=== PATIENT | male | born 1940 | race Caucasian/White ===

== ENCOUNTER 2019-07-03 00:45 | Emergency (ER) | payer MEDICARE, OTHER ==
[2019-07-03] MEDS ORDERED: Morphine 2 MG/ML Syringe IVPUSH ONE (00:52)
--- NOTE | 2019-07-03 00:54 | EDM.PDOC ---
ED HPI GENERAL MEDICAL PROBLEM - General Stated Complaint: FELL AND SPRAINED WRIST Time Seen by Provider: 07/03/19 00:53 Source of Information: Reports: Patient - History of Present Illness INITIAL COMMENTS - FREE TEXT/NARRATIVE: HISTORY AND PHYSICAL: History of present illness: [Getting into bed this evening had a fall he presents with right wrist deformity neurovascularly intact contusion on forehead noted No fever nausea vomiting chills sweats no chest pain shortness breath headache dizziness palpitation no bowel or urine symptoms ] Review of systems: As per history of present illness and below otherwise all systems reviewed and negative. Past medical history: As per history of present illness and as reviewed below otherwise noncontributory. Surgical history: As per history of present illness and as reviewed below otherwise noncontributory. Social history: No reported history of drug or alcohol abuse. Family history: As per history of present illness and as reviewed below otherwise noncontributory. Physical exam: HEENT: Atraumatic, normocephalic, pupils reactive, negative for conjunctival pallor or scleral icterus, mucous membranes moist, throat clear, neck supple, nontender, trachea midline. Lungs: Clear to auscultation, breath sounds equal bilaterally, chest nontender. Heart: S1S2, regular, negative for clicks, rubs, or JVD. Abdomen: Soft, nondistended, nontender. Negative for masses or hepatosplenomegaly. Negative for costovertebral tenderness. Pelvis: Stable nontender. Genitourinary: Deferred. Rectal: Deferred. Extremities: Atraumatic, negative for cords or calf pain. Neurovascular unremarkable. Swelling and deformity noted Neuro: Awake, alert, oriented. Cranial nerves II through XII unremarkable. Cerebellum unremarkable. Motor and sensory unremarkable throughout. Exam nonfocal. Diagnostics: [CBC CMP UA EKG Chest 1 view Pelvis 1 view Right wrist [address] no contrast Cervical spine no contrast ] Therapeutics: Normal saline Morphine 2 mg IV Slight reduction with traction performed, remains neurovascularly intact, no complication no complaint Splint Sling [place] [facility] referral for orthopedist ] Impression: closed intra-articular comminuted fracture distal radius ulnar styloid fracture right wrist injury Fall in home Definitive disposition and diagnosis as appropriate pending reevaluation and review of above. right hand Pain Score (Numeric/FACES): 6 - Related Data Allergies Allergy/AdvReac Type Severity Reaction Status Date / Time No Known Allergies Allergy Verified 07/03/19 00:59 Home Meds: Home Meds Aspirin 1 tab PO DAILY 07/03/19 [History] ED ROS GENERAL - Review of Systems Review Of Systems: See Below ED EXAM, GENERAL - Physical Exam Exam: See Below Course - Vital Signs Last Recorded V/S: Last Vital Signs Temp 96.2 F 07/03/19 02:11 Pulse 47 L 07/03/19 02:11 Resp 12 07/03/19 02:11 BP 118/57 L 07/03/19 02:11 Pulse Ox 93 L 07/03/19 02:11 - Orders/Labs/Meds Orders: Active Orders 24 hr Category Date Time Status EKG Documentation Completion [RC] STAT Care 07/03/19 00:52 Active Cervical Spine wo Cont [CT] Stat Exams 07/03/19 00:57 Taken Wrist 2V Rt [CR] Stat Exams 07/03/19 02:03 Taken UA RFX NESTOR AND CULT IF INDIC [URIN] Stat Lab 07/03/19 00:52 Ordered Sodium Chloride 0.9% [Normal Saline] 1,000 ml Med 07/03/19 01:00 Active IV STAT Medication Orders Sodium Chloride (Normal Saline) 1,000 mls @ 125 mls/hr IV STAT ISABELLA Last Admin: 07/03/19 01:28 Dose: 125 mls/hr Labs: Laboratory Tests 07/03/19 07/03/19 Range/Units 00:56 00:56 WBC 9.32 (4.0-11.0) K/uL RBC 4.31 L (4.50-5.90) M/uL Hgb 14.4 (13.0-17.0) g/dL Hct 41.7 (38.0-50.0) % MCV 96.8 (80.0-98.0) fL MCH 33.4 H (27.0-32.0) pg MCHC 34.5 (31.0-37.0) g/dL RDW Std Deviation 44.0 (28.0-62.0) fl RDW Coeff of Nahed 13 (11.0-15.0) % Plt Count 218 (150-400) K/uL MPV 10.40 (7.40-12.00) fL Neut % (Auto) 60.2 (48.0-80.0) % Lymph % (Auto) 29.5 (16.0-40.0) % Kleberg % (Auto) 9.2 (0.0-15.0) % Eos % (Auto) 0.8 (0.0-7.0) % Baso % (Auto) 0.3 (0.0-1.5) % Neut # (Auto) 5.6 (1.4-5.7) K/uL Lymph # (Auto) 2.8 H (0.6-2.4) K/uL Kleberg # (Auto) 0.9 H (0.0-0.8) K/uL Eos # (Auto) 0.1 (0.0-0.7) K/uL Baso # (Auto) 0.0 (0.0-0.1) K/uL Sodium 145 (136-148) mmol/L Potassium 3.9 (3.5-5.1) mmol/L Chloride 108 H (98-107) mmol/L Carbon Dioxide 26.3 (21.0-32.0) mmol/L BUN 21 H (7.0-18.0) mg/dL Creatinine 1.6 H (0.8-1.3) mg/dL Est Cr Clr Drug Dosing TNP Estimated GFR (MDRD) 42.0 ml/min Glucose 160 H (74-106) mg/dL Calcium 9.8 (8.5-10.1) mg/dL Total Bilirubin 1.0 (0.2-1.0) mg/dL AST 41 H (15-37) IU/L ALT 92 H (14-63) IU/L Alkaline Phosphatase 120 H (46-116) U/L Total Protein 6.4 (6.4-8.2) g/dL Albumin 3.4 (3.4-5.0) g/dL Globulin 3.0 (2.6-4.0) g/dL Albumin/Globulin Ratio 1.1 (0.9-1.6) Meds: Medications Generic Name Dose Route Start Last Admin Trade Name Freq PRN Reason Stop Dose Admin Sodium Chloride 1,000 mls @ 125 mls/hr 07/03/19 01:00 07/03/19 01:28 Normal Saline IV 125 mls/hr STAT ISABELLA Administration Discontinued Medications Generic Name Dose Route Start Last Admin Trade Name Freq PRN Reason Stop Dose Admin Morphine Sulfate 2 mg 07/03/19 00:52 07/03/19 01:29 Morphine IVPUSH 07/03/19 00:53 2 mg ONETIME ONE Administration Departure - Departure Time of Disposition: 02:23 Disposition: Home, Self-Care 01 Condition: Good Clinical Impression: Distal radius fracture, right, Fracture of ulnar styloid - Discharge Information Referrals: PCP,None [Primary Care Provider] - Additional Instructions: Medication as prescribed Return if symptoms persist or worsen ER referral for orthopedist evaluation tomorrow [facility] [address], [address] [place] [address] my orthopedic The following information is given to patients seen in the emergency department who are being discharged to home. This information is to outline your options for follow-up care. We provide all patients seen in our emergency department with a follow-up referral. The need for follow-up, as well as the timing and circumstances, are variable depending upon the specifics of your emergency department visit. If you don't have a primary care physician on staff, we will provide you with a referral. We always advise you to contact your personal physician following an emergency department visit to inform them of the circumstance of the visit and for follow-up with them and/or the need for any referrals to a consulting specialist. The emergency department will also refer you to a specialist when appropriate. This referral assures that you have the opportunity for follow-up care with a specialist. All of these measure are taken in an effort to provide you with optimal care, which includes your follow-up. Under all circumstances we always encourage you to contact your private physician who remains a resource for coordinating your care. When calling for follow-up care, please make the office aware that this follow-up is from your recent emergency room visit. If for any reason you are refused follow-up, please contact the [facility] emergency department at and asked to speak to the emergency department charge nurse. - My Orders Last 24 Hours: My Active Orders 07/03/19 00:52 EKG Documentation Completion [RC] STAT UA RFX NESTOR AND CULT IF INDIC [URIN] Stat 07/03/19 00:57 Cervical Spine wo Cont [CT] Stat 07/03/19 01:00 Sodium Chloride 0.9% [Normal Saline] 1,000 ml IV STAT 07/03/19 02:03 Wrist 2V Rt [CR] Stat - Assessment/Plan Last 24 Hours: My Active Orders 07/03/19 00:52 EKG Documentation Completion [RC] STAT UA RFX NESTOR AND CULT IF INDIC [URIN] Stat 07/03/19 00:57 Cervical Spine wo Cont [CT] Stat 07/03/19 01:00 Sodium Chloride 0.9% [Normal Saline] 1,000 ml IV STAT 07/03/19 02:03 Wrist 2V Rt [CR] Stat
[2019-07-03] MEDS ORDERED: Sodium Chloride 0.9% 1,000 ML IV SCH (01:00)
[2019-07-03 01:35] LABS: BLOOD UREA NITROGEN,BUN 21 mg/dL (7.0-18.0); CARBON DIOXIDE,CO2 26.3 mmol/L (21.0-32.0); CHLORIDE,CL 108 mmol/L (98-107); GLUCOSE RANDOM 160 mg/dL (74-106); POTASSIUM,K 3.9 mmol/L (3.5-5.1); SODIUM,NA 145 mmol/L (136-148)
--- NOTE | 2019-07-03 02:16 | CT ---
INDICATION: fall, patient takes aspirin CT HEAD WITHOUT CONTRAST TECHNIQUE: Multiple axial CT images were performed through the head without intravenous contrast administration. COMPARISON: No previous studies are currently available for comparison. FINDINGS: No acute intracranial hemorrhage is identified. No extra-axial collections are evident and there is no mass effect or midline shift. There is mild diffuse age-related brain atrophy. Ventricular size and configuration are within normal limits for the patient`s age. Bowen-white differentiation is within normal limits. There is patchy hypodensity in the periventricular white matter, a nonspecific finding which most likely reflects chronic small vessel ischemic change. A small to moderate sized chronic left frontal lobe infarct is noted. Osseous structures are within normal limits and no fractures are seen. Included portions of the paranasal sinuses and mastoid air cells are normally aerated. IMPRESSION: 1. No acute intracranial abnormality identified. 2. Mild age-related brain atrophy, white matter hypodensity consistent with chronic small vessel ischemic change, and chronic left frontal lobe infarct. ESTELLA SELF MD [employer] Dictated by: Sergey Self MD @ 07/03/2019 02:14:59 (Electronically Signed)
--- NOTE | 2019-07-03 02:16 | CR ---
INDICATION: fall CHEST, ONE VIEW An AP radiograph of the chest was performed. Comparison: No previous studies are currently available for comparison. The lungs appear clear of acute infiltrate, and no pleural effusions are identified. Left diaphragm is slightly elevated. The cardiomediastinal silhouette and pulmonary vasculature appear normal, as do the visualized bones. IMPRESSION: No acute intrathoracic abnormality identified. ESTELLA SELF MD [employer] Dictated by: Sergey Self MD @ 07/03/2019 02:16:13 (Electronically Signed)
--- NOTE | 2019-07-03 02:18 | CR ---
INDICATION: Fall. COMPARISON: None. FINDINGS/IMPRESSION: No acute fracture identified in the bony pelvis or hips. Sclerotic changes in trabecular thickening involving the proximal right femur consistent with Paget`s disease are noted. Incidental calcified phleboliths are seen in the lower left pelvis. Dictated by Sergey Lima MD @ 07/03/2019 2:17:29 AM Dictated by: Sergey Lima MD @ 07/03/2019 02:17:34 (Electronically Signed)
--- NOTE | 2019-07-03 02:20 | CR ---
INDICATION: Fall. COMPARISON: None. FINDINGS/IMPRESSION: Right wrist, 4 views. Acute, comminuted, intra-articular fracture of the distal right radius with impaction of the fragments and moderate dorsal angulation of the distal fragments. Mildly displaced ulnar styloid fracture also noted. Soft tissue swelling is present about the wrist. Scattered DJD changes are present. Dictated by Sergey Lima MD @ 07/03/2019 2:19:06 AM Dictated by: Sergey Lima MD @ 07/03/2019 02:19:46 (Electronically Signed)
--- NOTE | 2019-07-03 02:25 | CT ---
INDICATION: fall CT CERVICAL SPINE WITHOUT CONTRAST TECHNIQUE: Multidetector axial CT imaging was performed through the cervical spine, without contrast. Sagittal and coronal reconstructions were generated. FINDINGS: No acute fractures are identified. Osseous alignment is unremarkable and no subluxation is seen. Prevertebral soft tissues appear normal. There are scattered mild degenerative changes in the cervical spine. Included portions of the airway are within normal limits. Biapical lung bullae are present. IMPRESSION: No fracture, subluxation, or other acute finding identified in the cervical spine. ESTELLA SELF MD [employer] Dictated by: Sergey Self MD @ 07/03/2019 02:24:35 (Electronically Signed)
--- NOTE | 2019-07-03 02:42 | CR ---
INDICATION: Post reduction. TECHNIQUE: Single view right wrist COMPARISON: 07/03/2019 performed at 1:23 a.m. FINDINGS AND IMPRESSION: Single frontal radiograph of the right wrist post reduction. The comminuted, mildly impacted intra-articular fracture of the distal radius is again identified. Evaluation of dorsal angulation is limited by lack of a lateral view. Nondisplaced fracture of the ulnar styloid process noted. There is significant ulnar positive variance/distal displacement of the distal ulna relative to the distal radius and proximal carpal row. Moderate degenerative change at the 1st CMC joint. Soft tissue swelling at the wrist again identified. Dictated by Micky Mcclure MD @ 07/03/2019 2:40:38 AM Dictated by: Micky Mcclure MD @ 07/03/2019 02:40:44 (Electronically Signed)
== END 2019-07-03 02:52 | disposition home or self-care (01) ==
LOC: MW.ED 00:45
DX: S52.571A Other intraarticular fracture of lower end of right radius, initial encounter for closed fracture (principal); S52.614A Nondisplaced fracture of right ulna styloid process, initial encounter for closed fracture; W19.XXXA Unspecified fall, initial encounter; Y92.009 Unspecified place in unspecified non-institutional (private) residence as the place of occurrence of the external cause
CPT/HCPCS: 25605; 36415; 70450; 71045; 72125; 72170; 73100; 73110; 80053; 85025; 93005; 96361; 96374; 99284; J2270; J7040

== ENCOUNTER 2020-03-28 17:45 | Emergency (ER) | payer OTHER, MEDICARE ==
--- NOTE | 2020-03-28 18:22 | EDM.PDOC ---
ED HPI GENERAL MEDICAL PROBLEM - General Chief Complaint: Genitourinary Problem Stated Complaint: POSSIBLE CATHETER CHANGE Time Seen by Provider: 03/28/20 18:22 Source of Information: Reports: Patient History Limitations: Reports: No Limitations - History of Present Illness INITIAL COMMENTS - FREE TEXT/NARRATIVE: HISTORY AND PHYSICAL: History of present illness: Patient is a 79-year-old male who presents to the emergency room today with complaints of "problems with my catheter". The grandson who accompanied the patient to the emergency room states that he had a catheter put in this morning at [facility] for unknown reasons. Since the catheter was placed and the patient had gone home he does not feel like the Love is draining appropriately. Patient denies any fever, chills, headache, change in vision, syncope or near syncope. Denies any chest pain, back pain, shortness of breath or cough. Denies any abdominal pain, nausea, vomiting, diarrhea, constipation. Has not noted any blood in urine or stool. Patient has been eating and drinking appropriately. Review of systems: As per history of present illness and below otherwise all systems reviewed and negative. Past medical history: As per history of present illness and as reviewed below otherwise noncontributory. Surgical history: As per history of present illness and as reviewed below otherwise noncontributory. Social history: See social history for further information Family history: As per history of present illness and as reviewed below otherwise noncontributory. Physical exam: General: Well-developed and well-nourished 79-year-old male. Alert and oriented. Nontoxic-appearing and in no acute distress. HEENT: Atraumatic, normocephalic, pupils equal and reactive bilaterally, negative for conjunctival pallor or scleral icterus, mucous membranes moist, TMs normal bilaterally, throat clear, neck supple, nontender, trachea midline. No drooling or trismus noted. No meningeal signs. No hot potato voice noted. Lungs: Clear to auscultation, breath sounds equal bilaterally, chest nontender. Heart: S1S2, regular rate and rhythm without overt murmur Abdomen: Soft, nondistended, nontender. Love catheter inplace and draining Skin: Intact, warm, dry. No lesions or rashes noted. Extremities: Atraumatic, moves all extremities per self without difficulty or deficits, negative for cords or calf pain. Neurovascular unremarkable. Neuro: Awake, alert, oriented. Cranial nerves II through XII unremarkable. Cerebellum unremarkable. Motor and sensory unremarkable throughout. Exam nonfocal. Notes: Upon inspecting the Love catheter it appears intact and there is urine being produced. We did irrigate the Love with good return. He states "well good I just wanted it checked out". We discussed the need for follow-up with [facility] as he already has arranged. We discussed signs and symptoms that would prompt him to return to the emergency room. Supportive care measures were reviewed and discussed. Voices understanding and is agreeable to plan of care. Denies any further questions or concerns at this time. Diagnostics: None Therapeutics: None Prescription: None Impression: Love catheter problem Plan: 1. Love care as directed. 2. Follow up with [facility] in the next few days. 3. Return to the ED as we discussed (if you have any further problems immediately with your love). Definitive disposition and diagnosis as appropriate pending reevaluation and review of above. - Related Data Allergies Allergy/AdvReac Type Severity Reaction Status Date / Time No Known Allergies Allergy Verified 07/03/19 00:59 Home Meds: Home Meds Aspirin 1 tab PO DAILY 07/03/19 [History] Past Medical History Cardiovascular History: Reports: High Cholesterol - Past Surgical History HEENT Surgical History: Reports: Other (See Below) Other HEENT Surgeries/Procedures: left corneal transplant Social & Family History - Family History Family Medical History: Noncontributory ED ROS GENERAL - Review of Systems Review Of Systems: Comprehensive ROS is negative, except as noted in HPI. ED EXAM, RENAL/ - Physical Exam Exam: See Below (See dictation) Course - Orders/Labs/Meds Orders: Active Orders 24 hr Category Date Time Status Communication Order [RC] STAT Care 03/28/20 18:51 Active UA RFX NESTOR AND CULT IF INDIC [URIN] Stat Lab 03/28/20 18:13 Ordered Departure - Departure Time of Disposition: 19:16 Disposition: Home, Self-Care 01 Clinical Impression: Love catheter problem Qualifiers: Encounter type: initial encounter Qualified Code(s): T83.9XXA - Unspecified complication of genitourinary prosthetic device, implant and graft, initial encounter - Discharge Information Instructions: Indwelling Urinary Catheter Care, Adult Forms: ED Department Discharge Additional Instructions: The following information is given to patients seen in the emergency department who are being discharged to home. This information is to outline your options for follow-up care. We provide all patients seen in our emergency department with a follow-up referral. The need for follow-up, as well as the timing and circumstances, are variable depending upon the specifics of your emergency department visit. If you don't have a primary care physician on staff, we will provide you with a referral. We always advise you to contact your personal physician following an emergency department visit to inform them of the circumstance of the visit and for follow-up with them and/or the need for any referrals to a consulting specialist. The emergency department will also refer you to a specialist when appropriate. This referral assures that you have the opportunity for follow-up care with a specialist. All of these measure are taken in an effort to provide you with optimal care, which includes your follow-up. Under all circumstances we always encourage you to contact your private physician who remains a resource for coordinating your care. When calling for follow-up care, please make the office aware that this follow-up is from your recent emergency room visit. If for any reason you are refused follow-up, please contact the [facility] Emergency Department at and asked to speak to the emergency department charge nurse. [facility] [address] [place], [place] [id number] [place] [address] 1. Love care as directed, empty regularly. 2. Follow up with [facility] in the next few days. 3. Return to the ED as we discussed (if you have any further problems immediately with your love). Sepsis Event Note - Focused Exam Date Exam was Performed: 03/28/20 Time Exam was Performed: 19:14 - My Orders Last 24 Hours: My Active Orders 03/28/20 18:13 UA RFX NESTOR AND CULT IF INDIC [URIN] Stat 03/28/20 18:51 Communication Order [RC] STAT - Assessment/Plan Last 24 Hours: My Active Orders 03/28/20 18:13 UA RFX NESTOR AND CULT IF INDIC [URIN] Stat 03/28/20 18:51 Communication Order [RC] STAT
== END 2020-03-28 19:15 | disposition home or self-care (01) ==
LOC: MW.ED 17:45
DX: T83.9XXA Unspecified complication of genitourinary prosthetic device, implant and graft, initial encounter (principal); Z79.82 Long term (current) use of aspirin
CPT/HCPCS: 99282; 99283

== ENCOUNTER 2020-03-30 14:05 | Emergency (ER) | payer OTHER, MEDICARE ==
--- NOTE | 2020-03-30 15:42 | EDM.PDOC ---
ED [facility] GENERAL MEDICAL PROBLEM - General Chief Complaint: Genitourinary Problem Stated Complaint: CATH DISCOMFORT Time Seen by Provider: 03/30/20 15:00 - History of Present Illness INITIAL COMMENTS - FREE TEXT/NARRATIVE: HISTORY AND PHYSICAL: History of present illness: 79-year-old male who comes in with a Contreras catheter. He noticed that there was urine on his bed sheets and he came in to have it checked. He states the Contreras was changed 3 days ago. He denies any fever, infectious symptoms or other issues. He just wanted someone to check it secondary to the bed being wet. Review of systems: A 10-point review of systems, other than pertinent positives and negatives as stated per HPI, is otherwise negative. Past medical history: As per history of present illness and as reviewed below otherwise noncontributory. Surgical history: As per history of present illness and as reviewed below otherwise noncontributory. Social history: No reported history of drug or alcohol abuse. Family history: As per history of present illness and as reviewed below otherwise noncontributory. Physical exam: VITAL SIGNS: Reviewed. GENERAL: In no apparent distress. HEAD: No signs of head trauma. EYES: Pupils are equal. Extraocular motions intact. EARS: Hearing grossly intact. MOUTH: Oropharynx is normal. NECK: No adenopathy, no JVD. CHEST: Chest with clear breath sounds bilaterally. No wheezes, rales, or rhonchi. CARDIAC: Regular rate and rhythm. Normal S1 and S2, without murmurs, gallops, or rubs. VASCULAR: Peripheral pulses normal and equal in all extremities. ABDOMEN: Soft, without detectable tenderness. No sign of distention. No rebound or guarding, and no masses palpated. MUSCULOSKELETAL: Good range of motion of all major joints. Extremities without clubbing, cyanosis or edema. NEUROLOGIC EXAM: Alert and oriented x 3. No focal sensory or motor deficits. Speech normal. Follows commands. PSYCHIATRIC: Mood normal. SKIN: No rash or lesions. Male exam: Contreras catheter in place. No surrounding erythema. Bag seems to be draining appropriately Initial Differential Diagnosis & Plan: Bag malfunction, Contreras catheter malfunction, Contreras catheter infection, Contreras catheter obstruction. The bag was drained. We will send a urine culture. He does not want us to change his Contreras at this time. He will watch this and return if there are more problems. Everything seems to be functioning appropriately My diagnostic impression: 1. Indwelling Contreras catheter with leakage now resolved Urine culture pending - Related Data Allergies Allergy/AdvReac Type Severity Reaction Status Date / Time No Known Allergies Allergy Verified 03/30/20 14:32 Home Meds: Home Meds Aspirin 1 tab PO DAILY 07/03/19 [History] Past Medical History Cardiovascular History: Reports: High Cholesterol - Infectious Disease History Infectious Disease History: Reports: None - Past Surgical History HEENT Surgical History: Reports: Other (See Below) Other HEENT Surgeries/Procedures: left corneal transplant Social & Family History - Family History Family Medical History: Noncontributory - Tobacco Use Smoking Status *Q: Never Smoker - Caffeine Use Caffeine Use: Reports: None - Recreational Drug Use Recreational Drug Use: No ED ROS GENERAL - Review of Systems Review Of Systems: Unable To Obtain (see note) Reason Not Obtained: see note ED EXAM, RENAL/ - Physical Exam Exam: See Below (see note) Course - Vital Signs Last Recorded V/S: Last Vital Signs Temp 96.7 F L 03/30/20 14:29 Pulse 82 03/30/20 14:29 Resp 18 03/30/20 14:29 BP 112/57 L 03/30/20 14:29 Pulse Ox 94 L 03/30/20 14:29 - Orders/Labs/Meds Orders: Active Orders 24 hr Category Date Time Status CULTURE URINE [RM] Stat Lab 03/30/20 15:36 Ordered Departure - Departure Time of Disposition: 15:40 Disposition: Home, Self-Care 01 Clinical Impression: Contreras catheter problem - Discharge Information *PRESCRIPTION DRUG MONITORING PROGRAM REVIEWED*: Not Applicable *COPY OF PRESCRIPTION DRUG MONITORING REPORT IN PATIENT ELLYN: Not Applicable Instructions: Indwelling Urinary Catheter Care, Adult Referrals: PCP,None [Primary Care Provider] - [facility] [Outside] Additional Instructions: The following information is given to patients seen in the emergency department who are being discharged to home. This information is to outline your options for follow-up care. We provide all patients seen in our emergency department with a follow-up referral. The need for follow-up, as well as the timing and circumstances, are variable depending upon the specifics of your emergency department visit. If you don't have a primary care physician on staff, we will provide you with a referral. We always advise you to contact your personal physician following an emergency department visit to inform them of the circumstance of the visit and for follow-up with them and/or the need for any referrals to a consulting specialist. The emergency department will also refer you to a specialist when appropriate. This referral assures that you have the opportunity for follow-up care with a specialist. All of these measure are taken in an effort to provide you with optimal care, which includes your follow-up. Under all circumstances we always encourage you to contact your private physician who remains a resource for coordinating your care. When calling for follow-up care, please make the office aware that this follow-up is from your recent emergency room visit. If for any reason you are refused follow-up, please contact the [facility] Emergency Department at and asked to speak to the emergency department charge nurse. NICU for coming to the [facility] emergency department in [place] for your care today. It was Dr. Mcneil's pleasure to take care of you. The nursing staff and Dr. Mcneil could not find any issues with your Contreras catheter. He states that it was changed 3 days ago. Please follow-up with urology listed above. Please return immediately for fever, more problems with your catheter, or any other concerns. [facility] - Urology [address] [place] [id number] Sepsis Event Note - Evaluation Sepsis Screening Result: No Definite Risk - Focused Exam Vital Signs: Vital Signs Temp Pulse Resp BP Pulse Ox 03/30/20 14:29 96.7 F L 82 18 112/57 L 94 L Date Exam was Performed: 03/30/20 Time Exam was Performed: 15:38 - My Orders Last 24 Hours: My Active Orders 03/30/20 15:36 CULTURE URINE [RM] Stat - Assessment/Plan Last 24 Hours: My Active Orders 03/30/20 15:36 CULTURE URINE [RM] Stat
== END 2020-03-30 15:58 | disposition home or self-care (01) ==
LOC: MW.ED 14:05
DX: T83.038A Leakage of other urinary catheter, initial encounter (principal); Z79.82 Long term (current) use of aspirin
CPT/HCPCS: 87086; 87088; 87186; 99283

== ENCOUNTER 2020-10-27 11:39 | Emergency (ER) | payer MEDICARE, OTHER ==
--- NOTE | 2020-10-27 12:22 | EDM.PDOC ---
ED HPI GENERAL MEDICAL PROBLEM - General Chief Complaint: Lower Extremity Injury/Pain Stated Complaint: [facility] Time Seen by Provider: 10/27/20 11:40 - History of Present Illness INITIAL COMMENTS - FREE TEXT/NARRATIVE: 80-year-old male who walks with a walker at baseline [facility] with left lateral chest pain and left hip pain after ground-level fall. Patient states that he did not strike his head he does not have any headache or neck pain he denies any abdominal pain or right-sided pain. Rates the pain is mild to moderate. He denies trouble breathing. He denies radiation or other associated symptoms. Left rib/hip Pain Score (Numeric/FACES): 7 - Related Data Allergies Allergy/AdvReac Type Severity Reaction Status Date / Time No Known Allergies Allergy Verified 10/27/20 12:13 Home Meds: Home Meds Aspirin 1 tab PO DAILY 07/03/19 [History] Alendronate Sodium 70 mg PO WEEKLY 10/27/20 [History] Cyclobenzaprine [Flexeril] 10 mg PO BEDTIME 10/27/20 [History] Gabapentin [Neurontin] 600 mg PO TID 10/27/20 [History] Lidocaine 5% [Lidoderm 5%] 1 patch TOP DAILY 7 Days #7 patch 10/27/20 [Rx] Omeprazole 20 mg PO DAILY 10/27/20 [History] Vitamin B Complex 1 cap PO DAILY 10/27/20 [History] atorvaSTATin Calcium [Atorvastatin Calcium] 0.5 mg PO BEDTIME 10/27/20 [History] Past Medical History Cardiovascular History: Reports: High Cholesterol - Infectious Disease History Infectious Disease History: Reports: None - Past Surgical History HEENT Surgical History: Reports: Other (See Below) Other HEENT Surgeries/Procedures: left corneal transplant Social & Family History - Family History Family Medical History: No Pertinent Family History - Caffeine Use Caffeine Use: Reports: None Review of Systems - Review of Systems Review Of Systems: Comprehensive ROS is negative, except as noted in HPI. ED EXAM, GENERAL - Physical Exam Exam: See Below Free Text/Narrative:: General Appearance: No acute distress, appears comfortable Skin: No rash HEENT: Normocephalic/atraumatic, sclera anicteric, mucous membranes moist Neck: Normal range of motion Chest and Lungs: Bilateral breath sounds, clear to auscultation, left lateral rib tenderness ribs 4 through 7 no crepitus no palpable deformity remainder of rib cage is nontender Cardiovascular: Regular rate and rhythm, no murmur Abdomen: Soft, non-tender Back: Normal Musculoskeletal: Focal tenderness in the greater trochanter of the left hip bilateral lower extremities neurovascularly intact the right lower extremity and bilateral upper extremities is without focal pain or tenderness there is no focal pain tenderness or swelling the left knee of the left ankle. Patient is a Contreras catheter attached to his right leg Neurologic: Awake, alert, no obvious deficits, moving all extremities Psychiatric: Appropriate, cooperative Course - Vital Signs Last Recorded V/S: Last Vital Signs Temp 97.3 F 10/27/20 12:14 Pulse 55 L 10/27/20 13:42 Resp 17 10/27/20 13:42 BP 103/51 L 10/27/20 13:42 Pulse Ox 98 10/27/20 13:42 - Orders/Labs/Meds Meds: Medications Discontinued Medications Generic Name Dose Route Start Last Admin Trade Name Freq PRN Reason Stop Dose Admin Acetaminophen 650 mg 10/27/20 12:25 10/27/20 13:02 Tylenol PO 10/27/20 12:26 650 mg NOW ONE Administration Departure - Departure Time of Disposition: 15:05 Disposition: Home, Self-Care 01 Condition: Good Clinical Impression: Contusion, hip, Contusion of rib - Discharge Information *PRESCRIPTION DRUG MONITORING PROGRAM REVIEWED*: Not Applicable *COPY OF PRESCRIPTION DRUG MONITORING REPORT IN PATIENT ELLYN: Not Applicable Prescriptions: Lidocaine 5% [Lidoderm 5%] 1 patch TOP DAILY 7 Days #7 patch Instructions: Hip Pain, Rib Contusion Forms: ED Department Discharge Additional Instructions: Your x-rays today did not show any evidence of broken bones or other serious internal injury. You can use the Lidoderm patch to help with the pain in your left chest over the next couple days. If you have worsening symptoms or new symptoms that concern you please follow-up with your primary care doctor or return to the ER. The following information is given to patients seen in the emergency department who are being discharged to home. This information is to outline your options for follow-up care. We provide all patients seen in our emergency department with a follow-up referral. The need for follow-up, as well as the timing and circumstances, are variable depending upon the specifics of your emergency department visit. If you don't have a primary care physician on staff, we will provide you with a referral. We always advise you to contact your personal physician following an emergency department visit to inform them of the circumstance of the visit and for follow-up with them and/or the need for any referrals to a consulting specialist. The emergency department will also refer you to a specialist when appropriate. This referral assures that you have the opportunity for follow-up care with a specialist. All of these measure are taken in an effort to provide you with optimal care, which includes your follow-up. Under all circumstances we always encourage you to contact your private physician who remains a resource for coordinating your care. When calling for f ollow-up care, please make the office aware that this follow-up is from your recent emergency room visit. If for any reason you are refused follow-up, please contact the [facility] Emergency Department at and asked to speak to the emergency department charge nurse. Sepsis Event Note (ED) - Evaluation Sepsis Screening Result: No Definite Risk - Focused Exam Vital Signs: Vital Signs Temp Pulse Resp BP Pulse Ox 10/27/20 13:42 55 L 17 103/51 L 98 10/27/20 13:04 66 16 104/72 97 10/27/20 12:14 97.3 F 58 L 15 100/73 94 L - Assessment/Plan Assessment:: 80-year-old male presenting after slip and fall as described. Primary survey intact secondary survey notable for findings of the left chest and the left hip x-rays of the left hip and the chest of been ordered Tylenol for pain and will reassess. I believe you can clinically clear the head spine abdomen pelvis and other extremities. 1505: X-ray demonstrates Paget's disease but no fracture of the hip. Chest x- ray initially raise possibility of free air but after consultation with radiology additional abdominal x-ray was ordered which excludes this. Given this I would favor rib and hip contusion patient ambulates at his baseline with a walker so I do not have a high concern for missed fracture. Patient will follow up with primary care.
[2020-10-27] MEDS: Acetaminophen 325 MG Tab PO ONE (13:02)
--- NOTE | 2020-10-27 13:41 | CR ---
INDICATION: Fall with left lateral chest pain and hip pain TECHNIQUE: Single-view pelvis with AP and frogleg views left hip COMPARISONS: Single-view pelvis July 03, 2019 FINDINGS: Femoral heads are well-seated in the acetabula. There is no displaced fracture, dislocation or acute osseous abnormality. There is demonstration of Paget`s disease changes of the left iliac bone and acetabulum as well as the right acetabulum and proximal right femur. The soft tissues are unremarkable. IMPRESSION: Redemonstration of Paget`s disease changes of the proximal right femur and iliac bones without evidence of definite, displaced fracture. If pain and clinical symptoms continue follow up with CT or MRI may be useful for improved characterization of subtle cortical deformity or intrinsic osseous edema. Dictated by Gopi Castillo MD @ Oct 27 2020 1:38PM Signed by Dr. Gopi Castillo @ Oct 27 2020 1:40PM
--- NOTE | 2020-10-27 13:47 | CR ---
INDICATION: Fall with left lateral chest pain COMPARISON: July 03, 2019 TECHNIQUE: Single-view chest radiograph obtained as an AP upright study FINDINGS: TUBES AND LINES: None. HEART AND MEDIASTINUM: Heart size normal. Mediastinal contour within normal limits.. LUNGS AND PLEURAL SPACES: Minimal left base atelectasis.There is questionable free air beneath the diaphragm. This is probably a normal variation of an interposed colon although this is not certain. A left lateral decubitus view of the abdomen should suffice to assess for free air. 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 Recommended left lateral decubitus view of the abdomen for further evaluation. I discussed the above findings with Dr. Garth Rothman at 1:40 p.m. on October 27, 2020 Dictated by Chilo Romano MD @ Oct 27 2020 1:39PM Signed by Dr. Chilo Romano @ Oct 27 2020 1:45PM
--- NOTE | 2020-10-27 15:01 | CR ---
Indication: Assess for possible free subdiaphragmatic air on the right versus an interposed colon Technique: Left lateral decubitus view of the abdomen Comparison: The chest radiograph from earlier the same day Findings: Gaseous distention of colon. The air beneath the diaphragm is located within the colon which is partially interposed between the diaphragm and the liver. There is a visible free subdiaphragmatic air Impression: No visible free air. A portion of the right colon is interposed between the liver and the right hemidiaphragm creating the appearance seen on the earlier chest radiograph Dictated by Chilo Romano MD @ Oct 27 2020 2:57PM Signed by Dr. Chilo Romano @ Oct 27 2020 2:58PM
== END 2020-10-27 15:25 | disposition home or self-care (01) ==
LOC: MW.ED 11:39
DX: S20.212A Contusion of left front wall of thorax, initial encounter (principal); S70.02XA Contusion of left hip, initial encounter; E78.00 Pure hypercholesterolemia, unspecified; Z79.82 Long term (current) use of aspirin; Z79.899 Other long term (current) drug therapy; W01.0XXA Fall on same level from slipping, tripping and stumbling without subsequent striking against object, initial encounter
CPT/HCPCS: 71045; 71045-26; 73502-26-LT; 73502-LT; 74018; 74018-26; 99283-25; 99284; A9270-GY

== ENCOUNTER 2020-11-21 16:15 | Emergency (ER) | payer OTHER, MEDICARE ==
--- NOTE | 2020-11-21 17:00 | EDM.PDOC ---
ED HPI GENERAL MEDICAL PROBLEM - General Chief Complaint: Genitourinary Problem Time Seen by Provider: 11/21/20 16:50 Source of Information: Reports: Patient History Limitations: Reports: No Limitations - History of Present Illness INITIAL COMMENTS - FREE TEXT/NARRATIVE: 80-year-old male history of chronic Contreras catheter presents for catheter malfunction. 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 She notes that for the last several days it does not seem like the catheter bag is draining and he is leaking urine around the catheter. She is uncertain the last time he was changed. She denies any fevers or AMS. Patient is nonverbal at baseline. - Related Data Allergies Allergy/AdvReac Type Severity Reaction Status Date / Time No Known Allergies Allergy Verified 11/21/20 16:56 Home Meds: Home Meds Aspirin 1 tab PO DAILY 07/03/19 [History] Alendronate Sodium 70 mg PO WEEKLY 10/27/20 [History] Cyclobenzaprine [Flexeril] 10 mg PO BEDTIME 10/27/20 [History] Gabapentin [Neurontin] 600 mg PO TID 10/27/20 [History] Lidocaine 5% [Lidoderm 5%] 1 patch TOP DAILY 7 Days #7 patch 10/27/20 [Rx] Omeprazole 20 mg PO DAILY 10/27/20 [History] Vitamin B Complex 1 cap PO DAILY 10/27/20 [History] atorvaSTATin Calcium [Atorvastatin Calcium] 0.5 mg PO BEDTIME 10/27/20 [History] Sulfamethoxazole/Trimethoprim [Bactrim Ds Tablet] 1 each PO BID 7 Days #14 tablet 11/21/20 [Rx] Past Medical History Cardiovascular History: Reports: High Cholesterol Genitourinary History: Reports: BPH Other Genitourinary History: Chronic indwelling catheter. Neurological History: Reports: CVA Hematologic History: Reports: Anemia - Infectious Disease History Infectious Disease History: Reports: None - Past Surgical History HEENT Surgical History: Reports: Other (See Below) Other HEENT Surgeries/Procedures: left corneal transplant Social & Family History - Family History Family Medical History: No Pertinent Family History - Caffeine Use Caffeine Use: Reports: None ED ROS GENERAL - Review of Systems Review Of Systems: Comprehensive ROS is negative, except as noted in HPI. ED EXAM, GENERAL - Physical Exam Exam: See Below Exam Limited By: No Limitations General Appearance: Alert, WD/WN, No Apparent Distress Throat/Mouth: Normal Voice, No Airway Compromise Head: Atraumatic, Normocephalic Neck: Normal Inspection Respiratory/Chest: No Respiratory Distress, No Accessory Muscle Use Cardiovascular: Normal Peripheral Pulses, Regular Rate, Rhythm GI/Abdominal: Soft, Non-Tender (Male) Exam: Other (Contreras catheter in place which is not draining, no erythema or drainage noted about the urethral meatus) Extremities: Normal Inspection Neurological: Alert Psychiatric: Normal Affect, Normal Mood Skin Exam: Warm, Dry, Intact, Normal Color Course - Vital Signs Last Recorded V/S: Last Vital Signs Temp 97.8 F 11/21/20 16:50 Pulse 70 11/21/20 16:50 Resp 16 11/21/20 16:50 BP 130/56 L 11/21/20 16:50 Pulse Ox 97 11/21/20 16:50 - Orders/Labs/Meds Orders: Active Orders 24 hr Category Date Time Status Contreras Catheter Insertion [Insert Urinary Catheter] [OM. Care 11/21/20 17:00 Ordered PC] Q24H Urinary Catheter Assessment [RC] ASDIRECTED Care 11/21/20 16:57 Active UA RFX NESTOR AND CULT IF INDIC [URIN] Stat Lab 11/21/20 16:57 Ordered - Re-Assessments/Exams Free Text/Narrative Re-Assessment/Exam: 11/21/20 17:00 We will change out Contreras catheter, will send urinalysis from new bag. Will likely give Keflex for presumed catheter associated UTI. Will recommend follow- up with primary care physician. Departure - Departure Time of Disposition: 17:08 Disposition: Home, Self-Care 01 Condition: Good Clinical Impression: Contreras catheter problem Qualifiers: Encounter type: initial encounter Qualified Code(s): T83.9XXA - Unspecified complication of genitourinary prosthetic device, implant and graft, initial encounter - Discharge Information Prescriptions: Sulfamethoxazole/Trimethoprim [Bactrim Ds Tablet] 1 each PO BID 7 Days #14 tablet Instructions: Indwelling Urinary Catheter Care, Adult Referrals: PCP,None [Primary Care Provider] - Forms: ED Department Discharge Additional Instructions: The following information is given to patients seen in the emergency department who are being discharged to home. This information is to outline your options for follow-up care. We provide all patients seen in our emergency department with a follow-up referral. The need for follow-up, as well as the timing and circumstances, are variable depending upon the specifics of your emergency department visit. If you don't have a primary care physician on staff, we will provide you with a referral. We always advise you to contact your personal physician following an emergency department visit to inform them of the circumstance of the visit and for follow-up with them and/or the need for any referrals to a consulting speci alist. The emergency department will also refer you to a specialist when appropriate. This referral assures that you have the opportunity for follow-up care with a specialist. All of these measure are taken in an effort to provide you with optimal care, which includes your follow-up. Under all circumstances we always encourage you to contact your private physician who remains a resource for coordinating your care. When calling for follow-up care, please make the office aware that this follow-up is from your recent emergency room visit. If for any reason you are refused follow-up, please contact the [facility] Emergency Department at and asked to speak to the emergency department charge nurse. Please follow up with your primary care physician. If you do not have a primary care physician, see below: [facility] [address] [place] [id number] [facility] [address] [place] [id number] [facility] [address] [place] [id number] Sepsis Event Note (ED) - Evaluation Sepsis Screening Result: No Definite Risk - Focused Exam Vital Signs: Vital Signs Temp Pulse Resp BP Pulse Ox 11/21/20 16:50 97.8 F 70 16 130/56 L 97 - My Orders Last 24 Hours: My Active Orders 11/21/20 16:57 Urinary Catheter Assessment [RC] ASDIRECTED UA RFX NESTOR AND CULT IF INDIC [URIN] Stat 11/21/20 17:00 Contreras Catheter Insertion [Insert Urinary Catheter] [OM.PC] Q24H - Assessment/Plan Last 24 Hours: My Active Orders 11/21/20 16:57 Urinary Catheter Assessment [RC] ASDIRECTED UA RFX NESTOR AND CULT IF INDIC [URIN] Stat 11/21/20 17:00 Contreras Catheter Insertion [Insert Urinary Catheter] [OM.PC] Q24H
== END 2020-11-21 17:39 | disposition home or self-care (01) ==
LOC: MW.ED 16:15
DX: T83.038A Leakage of other urinary catheter, initial encounter (principal); E78.00 Pure hypercholesterolemia, unspecified; Z79.82 Long term (current) use of aspirin; Z79.899 Other long term (current) drug therapy
CPT/HCPCS: 51702; 81001; 87086; 87088; 87186; 99283; 99283-25

== ENCOUNTER 2020-11-25 22:18 | Emergency (ER) | payer OTHER, MEDICARE ==
[2020-11-26] MEDS ORDERED: Diphtheria,Pertussis(Acell),Tetanus Vaccine 0.5 ML Syringe IM ONE (00:04)
[2020-11-26] MEDS ORDERED: Lidocaine 1% with EPINEPHrine 1:100,000 10 ML MDV INJECT ONE (00:04)
[2020-11-26] MEDS ORDERED: Lidocaine 1% with EPINEPHrine 1:100,000 20 ML MDV ONE (00:08)
[2020-11-26] MEDS ORDERED: Lidocaine 1% with EPINEPHrine 1:100,000 20 ML MDV INJECT ONE (00:20)
--- NOTE | 2020-11-26 00:49 | CR ---
INDICATION: Hand injury from fall, laceration TECHNIQUE: Hand radiograph 3 views left COMPARISON: None FINDINGS: Bone: A small corticated ossicle is seen near the ulnar styloid. Joint: Mild DIP osteoarthritis is noted. Mild joint space narrowing in the radiocarpal joint is present. Soft tissue: Unremarkable. No radiopaque foreign bodies are seen. IMPRESSION: 1. No acute osseous injuries or abnormalities are noted. Dictated by Iglesia Bee MD @ 11/26/2020 12:48:14 AM Dictated by: Iglesia Bee MD @ 11/26/2020 00:48:18 (Electronically Signed)
[2020-11-26] MEDS ORDERED: Bacitracin Oint 1 GM U/D Packet TOP ONE (01:48)
--- NOTE | 2020-11-26 01:55 | EDM.PDOC ---
ED HPI GENERAL MEDICAL PROBLEM - General Chief Complaint: Laceration Stated Complaint: FELL Time Seen by Provider: 11/25/20 23:06 - History of Present Illness INITIAL COMMENTS - FREE TEXT/NARRATIVE: CHIEF COMPLAINT(S): Left arm laceration HISTORY OF PRESENT ILLNESS: This is a 80-year-old man with a past medical history of chronic Contreras and osteoporosis that appears who comes to the emergency department with a chief complaint of laceration to left arm. Caregiver who is his granddaughter at bedside stated that the patient walks with a walker and as he was returning from the bathroom he accidentally tripped and fell causing a cut to his left hand. She states that he did not hit his hand or have any loss of consciousness. The patient denied any headache, numbness, tingling, or weakness. He denies any chest pain or shortness of breath. He denies any preceding chest pain or shortness of breath. He again stated that he did not have any loss of consciousness. He is not on any anticoagulation. He denies any abdominal pain, nausea or vomiting. He does not know when his last tetanus shot was. REVIEW OF SYSTEMS: Constitutional: Denies fever, chills. Eyes: Denies eye pain Ears, Nose, Mouth, & Throat: Denies earache Cardiovascular: Denies chest pain Respiratory: Denies shortness of breath Gastrointestinal: Denies Nausea, vomiting, diarrhea, hematochezia. Genitourinary: Denies hematuria Skin: Positive for left arm laceration Neurological: Denies blurred vision numbness, tingling, weakness Psychiatric: Denies depression PAST MEDICAL HISTORY: As per history of present illness and as reviewed below otherwise noncontributory. SURGICAL HISTORY: As per history of present illness and as reviewed below otherwise noncontributory. SOCIAL HISTORY: As per history of present illness and as reviewed below ot herwise noncontributory. FAMILY HISTORY: As per history of present illness and as reviewed below otherwise noncontributory. EXAMINATION OF ORGAN SYSTEMS/BODY AREAS: Constitutional: Blood pressure is 155/67, heart rate 64, respiratory rate 16 with an oxygen saturation 96% on room air. Temperature 36.9 General: Overall well-appearing elderly man who is in no acute distress Psychiatric: Appropriate mood and affect. Eyes: No scleral icterus or conjunctival erythema left pupil with a cataract. Right pupil is normal and reactive. ENMT: Moist mucous membranes. No pharyngeal erythema no blood in the oropharynx. Cardiovascular: Regular, rate, and rhythm. No gallops, murmurs, or rubs. Bilateral upper extremity pulses symmetric and intact. No peripheral edema. No JVD. Respiratory: Lungs clear to auscultation bilaterally. No wheezes, rales, or rhonchi. Gastrointestinal: Soft, non-tender, non-distended. Normoactive bowel sounds Genitourinary: No suprapubic tenderness Musculoskeletal: Normal range of motion. There is no cervical, thoracic, or lumbar midline spinal tenderness Skin: There is a 3 x 2 cm L-shaped laceration to the patient's posterior lateral aspect of the forearm just inferior to the wrist. There is also an additional mild laceration measuring less than 1 cm just distal to that laceration. No active bleeding. Neurological: Alert, GCS 15 strength and sensation grossly intact in upper and lower extremities bilaterally MEDICAL DECISION MAKING AND COURSE IN THE ED WITH INTERPRETATION/REVIEW OF DIAGNOSTIC STUDIES: This is a 80-year-old man without any significant past medical history who comes to the emergency department with mechanical fall with forearm laceration without any active bleeding. At this time given the injury will obtain an x-ray of his hand given this is in the location of where the laceration is. We will update the patient's tetanus. Will prep for laceration repair The radiological images were viewed by myself along with reading the report from the radiologist. Left hand x-ray does not reveal any acute osseous abnormality. Laceration Repair Note Repair of the 3 x 2 cm left forearm wound was done by myself. Wound was irrigat ed well with saline. Local anesthesia with lidocaine was performed. No foreign bodies were noted. The wound was repaired with 9 50 directed nylon sutures. Wound edges approximated well. Bacitracin ointment and a sterile dressing were applied. 3 Steri-Strips were placed on the distal laceration. After laceration repair I did discuss with patient and granddaughter at bedside that they needed to remove the stitches in approximately 3 to 5 days. I discussed that if there were any redness, purulent drainage or worsening pain he should return to the emergency department. They were amenable to discharge at this time. There are no further questions DISPOSITION: The patient was discharged home in stable condition. The patient will follow up with [facility] for suture repair in 5 to 7 days CONDITION: Fair PROCEDURES: Laceration repair FINAL IMPRESSION(S)/DIAGNOSES: 1. Acute left forearm laceration status post suture repair 2. Acute mechanical fall William Miguel M.D. - Related Data Allergies Allergy/AdvReac Type Severity Reaction Status Date / Time No Known Allergies Allergy Verified 11/25/20 23:07 Home Meds: Home Meds Aspirin 1 tab PO DAILY 07/03/19 [History] Alendronate Sodium 70 mg PO WEEKLY 10/27/20 [History] Cyclobenzaprine [Flexeril] 10 mg PO BEDTIME 10/27/20 [History] Gabapentin [Neurontin] 600 mg PO TID 10/27/20 [History] Lidocaine 5% [Lidoderm 5%] 1 patch TOP DAILY 7 Days #7 patch 10/27/20 [Rx] Omeprazole 20 mg PO DAILY 10/27/20 [History] Vitamin B Complex 1 cap PO DAILY 10/27/20 [History] atorvaSTATin Calcium [Atorvastatin Calcium] 0.5 mg PO BEDTIME 10/27/20 [History] Sulfamethoxazole/Trimethoprim [Bactrim Ds Tablet] 1 each PO BID 7 Days #14 tablet 11/21/20 [Rx] Past Medical History Cardiovascular History: Reports: High Cholesterol Genitourinary History: Reports: BPH Other Genitourinary History: Chronic indwelling catheter. Neurological History: Reports: CVA Hematologic History: Reports: Anemia - Infectious Disease History Infectious Disease History: Reports: None - Past Surgical History HEENT Surgical History: Reports: Other (See Below) Other HEENT Surgeries/Procedures: left corneal transplant Social & Family History - Family History Family Medical History: No Pertinent Family History HEENT: Reports: None - Caffeine Use Caffeine Use: Reports: None - Recreational Drug Use Recreational Drug Use: No ED ROS GENERAL - Review of Systems Review Of Systems: See Below ED EXAM, SKIN/RASH Exam: See Below Course - Vital Signs Last Recorded V/S: Last Vital Signs Temp 36.9 C 11/25/20 23:02 Pulse 64 11/25/20 23:02 Resp 16 11/25/20 23:02 BP 155/67 H 11/25/20 23:02 Pulse Ox 96 11/25/20 23:02 - Orders/Labs/Meds Meds: Medications Discontinued Medications Generic Name Dose Route Start Last Admin Trade Name Freq PRN Reason Stop Dose Admin Bacitracin 1 dose 11/26/20 01:48 11/26/20 02:02 Bacitracin Oint 1 Gm TOP 11/26/20 01:49 1 dose ONETIME ONE Administration Diphtheria/Tetanus/Acell Pertussis 0.5 ml 11/26/20 00:04 11/26/20 00:20 Boostrix IM 11/26/20 00:05 0.5 ml .ONCE ONE Administration Lidocaine HCl Confirm 11/26/20 00:06 11/26/20 00:10 Xylocaine-Mpf 1% Administered 11/26/20 00:07 Not Given Dose 10 ml .ROUTE .STK-MED ONE Lidocaine/Epinephrine 10 ml 11/26/20 00:04 11/26/20 00:11 Xylocaine 1% With Epinephrine 1:100,000 INJECT 11/26/20 00:05 Not Given ONETIME ONE Lidocaine/Epinephrine Confirm 11/26/20 00:08 11/26/20 00:19 Xylocaine 1% With Epinephrine 1:100,000 Administered 11/26/20 00:09 Not Given Dose 20 ml .ROUTE .STK-MED ONE Lidocaine/Epinephrine 20 ml 11/26/20 00:20 11/26/20 00:27 Xylocaine 1% With Epinephrine 1:100,000 INJECT 11/26/20 00:21 20 ml ONETIME ONE Administration Departure - Departure Time of Disposition: 01:54 Disposition: Home, Self-Care 01 Condition: Fair Clinical Impression: Laceration - Discharge Information *PRESCRIPTION DRUG MONITORING PROGRAM REVIEWED*: No *COPY OF PRESCRIPTION DRUG MONITORING REPORT IN PATIENT ELLYN: No Instructions: Laceration Care, Adult, [id number], Pain Medicine Instructions, [id number], Sutures, Robin, or Adhesive Wound Closure, [id number] Referrals: PCP,None [Primary Care Provider] - Forms: ED Department Discharge Additional Instructions: Your evaluated today on an emergent basis. At this time your imaging did not show any broken bones. We did repair your cut with sutures. We did place 9 sutures. It is important to have these removed in 5 to 7 days. If you start to notice any redness or pus drainage please return to the emergency department. Please follow-up with your primary care physician at [facility]. The patient is informed of any results of their evaluation and diagnostic workup and all questions are answered. They are given discharge instructions and return precautions. The patient is stable for discharge. The patient states they understand and agree with the plan and that they will return if their symptoms get worse or if they have any new concerns. The following information is given to patients seen in the emergency department who are being discharged to home. This information is to outline your options for follow-up care. We provide all patients seen in our emergency department with a follow-up referral. The need for follow-up, as well as the timing and circumstances, are variable depending upon the specifics of your emergency department visit. If you don't have a primary care physician on staff, we will provide you with a referral. We always advise you to contact your personal physician following an emergency department visit to inform them of the circumstance of the visit and for follow-up with them and/or the need for any referrals to a consulting specialist. The emergency department will also refer you to a specialist when appropriate. This referral assures that you have the opportunity for follow-up care with a specialist. All of these measure are taken in an effort to provide you with optimal care, which includes your follow-up. Under all circumstances we always encourage you to contact your private physician who remains a resource for coordinating your care. When calling for follow-up care, please make the office aware that this follow-up is from your recent emergency room visit. If for any reason you are refused follow-up, please contact the [facility] Emergency Department at and asked to speak to the emergency department charge nurse. Sepsis Event Note (ED) - Evaluation Sepsis Screening Result: No Definite Risk
== END 2020-11-26 02:13 | disposition home or self-care (01) ==
LOC: MW.ED 22:18
DX: S51.812A Laceration without foreign body of left forearm, initial encounter (principal); E78.00 Pure hypercholesterolemia, unspecified; Z86.73 Personal history of transient ischemic attack (TIA), and cerebral infarction without residual deficits; Z79.899 Other long term (current) drug therapy; Z79.82 Long term (current) use of aspirin; Z23 Encounter for immunization; W00.0XXA Fall on same level due to ice and snow, initial encounter
CPT/HCPCS: 12002; 73130-26-LT; 73130-LT; 90471; 99283; 99283-25

== ENCOUNTER 2021-01-20 10:37 | Emergency (ER) | payer OTHER, MEDICARE ==
--- NOTE | 2021-01-20 12:20 | EDM.PDOC ---
ED HPI GENERAL MEDICAL PROBLEM - General Chief Complaint: Genitourinary Problem Stated Complaint: CLOGGED CATH. Time Seen by Provider: 01/20/21 11:00 Source of Information: Reports: Patient History Limitations: Reports: No Limitations - History of Present Illness INITIAL COMMENTS - FREE TEXT/NARRATIVE: Patient is a 80-year-old male with a history of indwelling Contreras. Patient p resents with caregiver who states the Contreras has been clogged morning. Patient otherwise has no complaints denies any abdominal pain fever chills or feeling like he has urinate. Patient does have some urine in his leg likely from urine leaking around the Contreras. - Related Data Allergies Allergy/AdvReac Type Severity Reaction Status Date / Time No Known Allergies Allergy Verified 01/20/21 11:51 Home Meds: Home Meds Lidocaine 5% [Lidoderm 5%] 1 patch TOP DAILY 7 Days #7 patch 10/27/20 [Rx] Sulfamethoxazole/Trimethoprim [Bactrim Ds Tablet] 1 each PO BID 7 Days #14 tablet 11/21/20 [Rx] Finasteride DAILY 01/20/21 [History] Nystatin 01/20/21 [History] Tamsulosin [Flomax] PO DAILY 01/20/21 [History] Water For Irrigation,Sterile [Sterile Water for Irrigation] 1,000 ml .XX DAILY 01/20/21 [History] Past Medical History Cardiovascular History: Reports: High Cholesterol Genitourinary History: Reports: BPH Other Genitourinary History: Chronic indwelling catheter. Neurological History: Reports: CVA Psychiatric History: Reports: Dementia Hematologic History: Reports: Anemia - Infectious Disease History Infectious Disease History: Reports: None - Past Surgical History HEENT Surgical History: Reports: Other (See Below) Other HEENT Surgeries/Procedures: left corneal transplant Social & Family History - Family History Family Medical History: No Pertinent Family History HEENT: Reports: None - Caffeine Use Caffeine Use: Reports: Coffee - Recreational Drug Use Recreational Drug Use: No ED ROS GENERAL - Review of Systems Review Of Systems: See Below Constitutional: Reports: No Symptoms HEENT: Reports: No Symptoms Respiratory: Reports: No Symptoms Cardiovascular: Reports: No Symptoms Endocrine: Reports: No Symptoms GI/Abdominal: Reports: No Symptoms : Reports: Incontinence Musculoskeletal: Reports: No Symptoms Skin: Reports: No Symptoms Neurological: Reports: No Symptoms Psychiatric: Reports: No Symptoms Hematologic/Lymphatic: Reports: No Symptoms Immunologic: Reports: No Symptoms ED EXAM, RENAL/ - Physical Exam Exam: See Below Exam Limited By: No Limitations General Appearance: Alert, WD/WN Eye Exam: Bilateral Eye: EOMI Head: Atraumatic, Normocephalic Respiratory/Chest: No Respiratory Distress, Lungs Clear, Normal Breath Sounds Cardiovascular: Normal Peripheral Pulses, Regular Rate, Rhythm, No Edema GI/Abdominal: Normal Bowel Sounds, Soft, Non-Tender Extremities: Normal Inspection Neurological: Alert, Oriented Course - Vital Signs Last Recorded V/S: Last Vital Signs Temp 97.4 F 01/20/21 11:30 Pulse 68 01/20/21 16:00 Resp 17 01/20/21 16:00 BP 134/58 L 01/20/21 16:00 Pulse Ox 95 01/20/21 16:00 - Orders/Labs/Meds Orders: Active Orders 24 hr Category Date Time Status Insert Contreras Catheter [Insert Urinary Catheter] [OM.PC] Care 01/20/21 12:15 Ordered Q24H Urinary Catheter Assessment [RC] ASDIRECTED Care 01/20/21 12:15 Active - Re-Assessments/Exams Free Text/Narrative Re-Assessment/Exam: 01/20/21 17:06 Urology presented today to remove the Contreras. We change the Contreras and urine is flowing out. Departure - Departure Time of Disposition: 17:06 Disposition: Home, Self-Care 01 Condition: Good Clinical Impression: Complication of Contreras catheter - Discharge Information *PRESCRIPTION DRUG MONITORING PROGRAM REVIEWED*: Not Applicable *COPY OF PRESCRIPTION DRUG MONITORING REPORT IN PATIENT ELLYN: Not Applicable Instructions: Indwelling Urinary Catheter Care, Adult Referrals: Mohan Edmonds NP [Primary Care Provider] - Forms: ED Department Discharge Additional Instructions: The following information is given to patients seen in the emergency department who are being discharged to home. This information is to outline your options for follow-up care. We provide all patients seen in our emergency department with a follow-up referral. The need for follow-up, as well as the timing and circumstances, are variable depending upon the specifics of your emergency department visit. If you don't have a primary care physician on staff, we will provide you with a referral. We always advise you to contact your personal physician following an emergency department visit to inform them of the circumstance of the visit and for follow-up with them and/or the need for any referrals to a consulting specialist. The emergency department will also refer you to a specialist when appropriate. This referral assures that you have the opportunity for follow-up care with a specialist. All of these measure are taken in an effort to provide you with optimal care, which includes your follow-up. Under all circumstances we always encourage you to contact your private physician who remains a resource for coordinating your care. When calling for follow-up care, please make the office aware that this follow-up is from your recent emergency room visit. If for any reason you are refused follow-up, please contact the [facility] Emergency Department at and asked to speak to the emergency department charge nurse. Please follow up with your primary care physician. If you do not have a primary care physician, see below: [facility] [address] [place] [id number] [facility] [address] [place] [id number] [facility] [address] [place] [id number] Please continue to follow-up with the normal person ahead with your Contreras care. If you have any other complications with your Contreras. Feel free to return. If you start having large amount of output continue Contreras discharge feeling tired weak or dehydrated please return to the ED. Sepsis Event Note (ED) - Evaluation Sepsis Screening Result: No Definite Risk - Focused Exam Vital Signs: Vital Signs Temp Pulse Resp BP Pulse Ox 01/20/21 16:00 68 17 134/58 L 95 01/20/21 15:00 66 17 125/56 L 95 01/20/21 11:30 97.4 F 76 20 114/64 94 L - My Orders Last 24 Hours: My Active Orders 01/20/21 12:15 Insert Contreras Catheter [Insert Urinary Catheter] [OM.PC] Q24H Urinary Catheter Assessment [RC] ASDIRECTED - Assessment/Plan Last 24 Hours: My Active Orders 01/20/21 12:15 Insert Contreras Catheter [Insert Urinary Catheter] [OM.PC] Q24H Urinary Catheter Assessment [RC] ASDIRECTED Plan: 80-year-old male presents today for possible clogged Contreras. Will recheck his Contreras and reassess.
== END 2021-01-20 17:18 | disposition home or self-care (01) ==
LOC: MW.ED 10:37
DX: T83.038A Leakage of other urinary catheter, initial encounter (principal)
CPT/HCPCS: 99282; 99283

== ENCOUNTER 2021-02-20 19:42 | Emergency (ER) | payer OTHER ==
--- NOTE | 2021-02-20 19:59 | EDM.PDOC ---
ED HPI GENERAL MEDICAL PROBLEM - General Chief Complaint: Genitourinary Problem Stated Complaint: NEW CATHETER Time Seen by Provider: 02/20/21 19:48 Source of Information: Reports: Patient History Limitations: Reports: No Limitations - History of Present Illness INITIAL COMMENTS - FREE TEXT/NARRATIVE: HISTORY AND PHYSICAL: History of present illness: Patient is a 80-year-old male who presents to the emergency room with complaints of Love catheter malfunction. The family member/caregiver states that his Love catheter frequently gets clogged and has to be replaced. She received instructions for Love care by Dr. Brady's nurse (flushing, advancing, irrigating etc...). Caregiver states she tried these things this afternoon and has not get any urine return. Prior to this he had clear yellow urine return, no hematuria or clots. The patient denies having any pubic/suprapubic discomfort. Patient denies any fever, chills, headache, change in vision, syncope or near syncope. Denies any chest pain, back pain, shortness of breath or cough. Denies any abdominal pain, nausea, vomiting, diarrhea, constipation or dysuria. Patient has been eating and drinking appropriately. Review of systems: As per history of present illness and below otherwise all systems reviewed and negative. Past medical history: As per history of present illness and as reviewed below otherwise noncontributory. Surgical history: As per history of present illness and as reviewed below otherwise noncontributory. Social history: See social history for further information Family history: As per history of present illness and as reviewed below otherwise noncontributory. Physical exam: General: Well developed and well nourished. Alert and orientated x 3. Nontoxic in appearance and in no acute distress. Vital signs are stable and have been reviewed by me. Nursing notes were reviewed. HEENT: Atraumatic, normocephalic, pupils equal and reactive bilaterally, negative for conjunctival pallor or scleral icterus, mucous membranes moist, trachea midline. No drooling or trismus noted. No meningeal signs. No hot potato voice noted. Lungs: Clear to auscultation bilaterally. No wheezes, rales, or rhonchi. Normal work of breathing, no accessory muscles used. Heart: S1S2, regular rate and rhythm without overt murmur, gallops, or rubs. No JVD. No peripheral edema Abdomen: Soft, nondistended, nontender. Normoactive bowel sounds. Negative for masses or costovertebral tenderness. Genitourinary/Rectal: Normal-appearing external genitalia, Love catheter intact. Skin: Intact, warm, dry. No lesions or rashes noted. Hematologic: No petechiae or purpra. Mucosa appropriate color and normal nail bed color and refill. Extremities: Atraumatic, moves all extremities per self without difficulty or deficits. Neurovascular unremarkable. Neuro: Awake, alert, oriented. Cranial nerves II through XII unremarkable. Cerebellum unremarkable. Motor and sensory unremarkable throughout. Exam nonf ocal. Psychiatric: Mood and affect are appropriate. Normal thought process. Answering questions appropriately. Notes: *This patient was seen and evaluated during the 2019 SARS-CoV-2 novel coronaviru s pandemic period. Community viral transmission is ongoing at time of this encounter and the emergency department is operating under pandemic response procedures. Attempted to irrigate love, but it is clogged. It was difficult to remove the love catheter, as there was crystalization in the distal aspect of the catheter. Nursing was able to replace the love, although not getting enough return for UA sample. Bladder Scanner shows 322mls in bladder, nontender. Love/bladder irrigation performed. Patient remains stables. VSS. Patient is now draining urine appropriately. Urine sent to lab. Urine is cloudy and foul odor. Suspecting UTI. Patient does have a significant bladder infection. He is tolerating p.o., will start him on Bactrim. Vital signs remained stable. I have talked with the patient and caregivers about today's findings, in addition to providing specific details for plan of care. Reassessment at the time of disposition demonstrates that the patient is in no acute distress. The patient is stable for discharge, counseling was provided and we discussed in great detail signs and symptoms that would prompt them to return to the Emergency Department. Medication, follow up and supportive care measures were reviewed and discussed. Voices understanding and is agreeable to plan of care. Denies any further questions or concerns at this time. Diagnostics: UA Therapeutics: Love replacement/bladder irrigation, Bactrim DS Prescription: Bactrim DS Impression: UTI Love Catheter Replacement Plan: 1. You were evaluated today on an emergent basis. Your Love catheter was replaced. You do have a significant bladder infeciton. Please take the antibiotic as directed. 2. You can alternate Tylenol and ibuprofen as needed for pain and fever management. 3. We encourage you to follow up with Dr Brady (urologist) in [place] for re- evaluation and further care/management. Call to set up your follow up appointment. 4. If your symptoms should worsen, new symptoms develop or any of the signs and symptoms we discussed should arise please return to the emergency room or call 911 (if needed). Definitive disposition and diagnosis as appropriate pending reevaluation and review of above. - Related Data Allergies Allergy/AdvReac Type Severity Reaction Status Date / Time No Known Allergies Allergy Verified 02/20/21 20:03 Home Meds: Home Meds Lidocaine 5% [Lidoderm 5%] 1 patch TOP DAILY 7 Days #7 patch 10/27/20 [Rx] Finasteride 5 mg PO DAILY 01/20/21 [History] Nystatin 01/20/21 [History] Tamsulosin [Flomax] 0.4 mg PO DAILY 01/20/21 [History] Water For Irrigation,Sterile [Sterile Water for Irrigation] 1,000 ml .XX DAILY 01/20/21 [History] Sulfamethoxazole/Trimethoprim [Bactrim Ds Tablet] 1 each PO BID 7 Days #14 tablet 02/20/21 [Rx] Past Medical History Cardiovascular History: Reports: High Cholesterol Genitourinary History: Reports: BPH Other Genitourinary History: Chronic indwelling catheter. Neurological History: Reports: CVA Psychiatric History: Reports: Dementia Hematologic History: Reports: Anemia - Infectious Disease History Infectious Disease History: Reports: None - Past Surgical History HEENT Surgical History: Reports: Other (See Below) Other HEENT Surgeries/Procedures: left corneal transplant Social & Family History - Family History Family Medical History: No Pertinent Family History HEENT: Reports: None - Caffeine Use Caffeine Use: Reports: Coffee ED ROS GENERAL - Review of Systems Review Of Systems: Comprehensive ROS is negative, except as noted in HPI. ED EXAM, RENAL/ - Physical Exam Exam: See Below (See dictation) Course - Vital Signs Last Recorded V/S: Last Vital Signs Temp 97 F 02/20/21 20:04 Pulse 74 02/20/21 20:04 Resp 18 02/20/21 20:04 BP 142/57 H 02/20/21 20:04 Pulse Ox 97 02/20/21 20:04 - Orders/Labs/Meds Orders: Active Orders 24 hr Category Date Time Status Bladder Scan [RC] ASDIRECTED Care 02/20/21 20:59 Active Communication Order [RC] STAT Care 02/20/21 19:59 Active Communication Order [RC] STAT Care 02/20/21 21:09 Active CULTURE URINE [RM] Stat Lab 02/20/21 21:18 Received UA W/MICROSCOPIC [URIN] Stat Lab 02/20/21 21:18 Results Labs: Laboratory Tests 02/20/21 Range/Units 21:18 Urine Color YELLOW Urine Appearance SLT CLOUDY Urine pH 8.5 H (5.0-8.0) Ur Specific [place] 1.015 (1.001-1.035) Urine Protein 30 H (NEGATIVE) mg/dL Urine Glucose (UA) NEGATIVE (NEGATIVE) mg/dL Urine Ketones NEGATIVE (NEGATIVE) mg/dL Urine Occult Blood LARGE H (NEGATIVE) Urine Nitrite POSITIVE H (NEGATIVE) Urine Bilirubin NEGATIVE (NEGATIVE) Urine Urobilinogen 0.2 (<2.0) EU/dL Ur Leukocyte Esterase LARGE H (NEGATIVE) Meds: Medications Discontinued Medications Generic Name Dose Route Start Last Admin Trade Name Freq PRN Reason Stop Dose Admin Trimethoprim/Sulfamethoxazole 1 tab 02/20/21 21:32 Sulfamethoxazole/Trimethoprim 800-160 Mg Tab PO 02/20/21 21:33 ONETIME ONE Departure - Departure Time of Disposition: 21:38 Disposition: Home, Self-Care 01 Clinical Impression: UTI, Urinary tract infectious disease Love catheter problem Qualifiers: Encounter type: initial encounter Qualified Code(s): T83.9XXA - Unspecified complication of genitourinary prosthetic device, implant and graft, initial encounter - Discharge Information Prescriptions: Sulfamethoxazole/Trimethoprim [Bactrim Ds Tablet] 1 each PO BID 7 Days #14 tablet Instructions: Urinary Tract Infection, Adult, [id number] Referrals: PCP,None [Primary Care Provider] - Forms: ED Department Discharge Additional Instructions: The following information is given to patients seen in the emergency department who are being discharged to home. This information is to outline your options for follow-up care. We provide all patients seen in our emergency department with a follow-up referral. The need for follow-up, as well as the timing and circumstances, are variable depending upon the specifics of your emergency department visit. If you don't have a primary care physician on staff, we will provide you with a referral. We always advise you to contact your personal physician following an emergency department visit to inform them of the circumstance of the visit and for follow-up with them and/or the need for any referrals to a consulting specialist. The emergency department will also refer you to a specialist when appropriate. This referral assures that you have the opportunity for follow-up care with a specialist. All of these measure are taken in an effort to provide you with optimal care, which includes your follow-up. Under all circumstances we always encourage you to contact your private physician who remains a resource for coordinating your care. When calling for follow-up care, please make the office aware that this follow-up is from your recent emergency room visit. If for any reason you are refused follow-up, please contact the [facility] Emergency Department at and asked to speak to the emergency department charge nurse. [facility] [address] [place] [address] [place] [address] Thank you for choosing the [facility] emergency department in [place] for your medical needs today. It was a pleasure caring for you. Today you were seen in the emergency department for UTI and love catheter replacement. 1. You were evaluated today on an emergent basis. Your Love catheter was replaced. You do have a significant bladder infection. Please take the antibiotic as directed. 2. You can alternate Tylenol and ibuprofen as needed for pain and fever ma nagement. 3. We encourage you to follow up with Dr Brady (urologist) in [place] for re- evaluation and further care/management. Call to set up your follow up appointment. 4. If your symptoms should worsen, new symptoms develop or any of the signs and symptoms we discussed should arise please return to the emergency room or call [phone] (if needed). Sepsis Event Note (ED) - Focused Exam Vital Signs: Vital Signs Temp Pulse Resp BP Pulse Ox 02/20/21 20:04 97 F 74 18 142/57 H 97 - My Orders Last 24 Hours: My Active Orders 02/20/21 19:59 Communication Order [RC] STAT 02/20/21 20:59 Bladder Scan [RC] ASDIRECTED 02/20/21 21:09 Communication Order [RC] STAT 02/20/21 21:18 CULTURE URINE [RM] Stat UA W/MICROSCOPIC [URIN] Stat - Assessment/Plan Last 24 Hours: My Active Orders 02/20/21 19:59 Communication Order [RC] STAT 02/20/21 20:59 Bladder Scan [RC] ASDIRECTED 02/20/21 21:09 Communication Order [RC] STAT 02/20/21 21:18 CULTURE URINE [RM] Stat UA W/MICROSCOPIC [URIN] Stat
[2021-02-20] MEDS ORDERED: Sulfamethoxazole/Trimethoprim 800-160 MG Tab PO ONE (21:32)
== END 2021-02-20 21:54 | disposition home or self-care (01) ==
LOC: MW.ED 19:42
DX: T83.511A Infection and inflammatory reaction due to indwelling urethral catheter, initial encounter (principal); N39.0 Urinary tract infection, site not specified; E78.00 Pure hypercholesterolemia, unspecified; Z79.899 Other long term (current) drug therapy
CPT/HCPCS: 51702; 81001; 87086; 87088; 87186; 99283; A9270

== ENCOUNTER 2021-03-26 17:31 | Emergency (ER) | payer OTHER ==
--- NOTE | 2021-03-26 19:13 | EDM.PDOC ---
ED HPI GENERAL MEDICAL PROBLEM - General Chief Complaint: Genitourinary Problem Stated Complaint: CATHETER ISSUE Time Seen by Provider: 03/26/21 19:02 Source of Information: Reports: Patient History Limitations: Reports: No Limitations - History of Present Illness INITIAL COMMENTS - FREE TEXT/NARRATIVE: Patient is a 80-year-old male who presents today for Love issues. Patient has had indwelling Love for the past few months and caregivers with him and states this happens quite frequently with a Love is clogged needs to be changed or unclogged. Patient otherwise has no nausea vomiting fever chills or other complaints. - Related Data Allergies Allergy/AdvReac Type Severity Reaction Status Date / Time No Known Allergies Allergy Verified 03/26/21 19:04 Home Meds: Home Meds Lidocaine 5% [Lidoderm 5%] 1 patch TOP DAILY 7 Days #7 patch 10/27/20 [Rx] Finasteride 5 mg PO DAILY 01/20/21 [History] Nystatin 01/20/21 [History] Tamsulosin [Flomax] 0.4 mg PO DAILY 01/20/21 [History] Water For Irrigation,Sterile [Sterile Water for Irrigation] 1,000 ml .XX DAILY 01/20/21 [History] Sulfamethoxazole/Trimethoprim [Bactrim Ds Tablet] 1 each PO BID 7 Days #14 tablet 02/20/21 [Rx] Past Medical History Cardiovascular History: Reports: High Cholesterol Genitourinary History: Reports: BPH Other Genitourinary History: Chronic indwelling catheter. Neurological History: Reports: CVA Psychiatric History: Reports: Dementia Hematologic History: Reports: Anemia - Infectious Disease History Infectious Disease History: Reports: None - Past Surgical History HEENT Surgical History: Reports: Other (See Below) Other HEENT Surgeries/Procedures: left corneal transplant Social & Family History - Family History Family Medical History: No Pertinent Family History HEENT: Reports: None - Tobacco Use Tobacco Use Status *Q: Never Tobacco User - Caffeine Use Caffeine Use: Reports: None - Recreational Drug Use Recreational Drug Use: No ED ROS GENERAL - Review of Systems Review Of Systems: See Below Constitutional: Reports: No Symptoms HEENT: Reports: No Symptoms Respiratory: Reports: No Symptoms Cardiovascular: Reports: No Symptoms Endocrine: Reports: No Symptoms GI/Abdominal: Reports: No Symptoms : Reports: Other (love issue ) Musculoskeletal: Reports: No Symptoms Skin: Reports: No Symptoms Neurological: Reports: No Symptoms Psychiatric: Reports: No Symptoms Hematologic/Lymphatic: Reports: No Symptoms Immunologic: Reports: No Symptoms ED EXAM, RENAL/ - Physical Exam Exam: See Below Exam Limited By: No Limitations General Appearance: Alert, WD/WN, No Apparent Distress GI/Abdominal: Normal Bowel Sounds, Soft, Non-Tender (Male) Exam: No: Scrotum Tenderness (L), Scrotum Tenderness (R), Testicular Tenderness (L), Testicular Tenderness (R), Urethral Discharge Neurological: Alert, Oriented Course - Vital Signs Last Recorded V/S: Last Vital Signs Temp 97 F 03/26/21 19:06 Pulse 62 03/26/21 19:06 Resp 16 03/26/21 19:06 BP 141/57 H 03/26/21 19:06 Pulse Ox 98 03/26/21 19:06 - Re-Assessments/Exams Free Text/Narrative Re-Assessment/Exam: 03/26/21 19:35 Patient Love placed by nursing freely flowing. Patient be discharged home to follow-up with his urologist. He has been seen for this multiple times in the past and was told he positives a suprapubic catheter however son refused the superior catheter like to keep the Love in they have had since conversation with the son about this he is well aware. Patient be discharged and follow-up with his urologist. Departure - Departure Time of Disposition: 19:35 Disposition: Home, Self-Care 01 Condition: Good Clinical Impression: Love catheter problem Qualifiers: Encounter type: initial encounter Qualified Code(s): T83.9XXA - Unspecified complication of genitourinary prosthetic device, implant and graft, initial encounter - Discharge Information *PRESCRIPTION DRUG MONITORING PROGRAM REVIEWED*: Not Applicable *COPY OF PRESCRIPTION DRUG MONITORING REPORT IN PATIENT ELLYN: Not Applicable Instructions: Indwelling Urinary Catheter Care, Adult Referrals: Mohan Edmonds NP [Primary Care Provider] - Forms: ED Department Discharge Additional Instructions: The following information is given to patients seen in the emergency department who are being discharged to home. This information is to outline your options for follow-up care. We provide all patients seen in our emergency department with a follow-up referral. The need for follow-up, as well as the timing and circumstances, are variable depending upon the specifics of your emergency department visit. If you don't have a primary care physician on staff, we will provide you with a referral. We always advise you to contact your personal physician following an emergency department visit to inform them of the circumstance of the visit and for follow-up with them and/or the need for any referrals to a consulting specialist. The emergency department will also refer you to a specialist when appropriate. This referral assures that you have the opportunity for follow-up care with a specialist. All of these measure are taken in an effort to provide you with optimal care, which includes your follow-up. Under all circumstances we always encourage you to contact your private physician who remains a resource for coordinating your care. When calling for follow-up care, please make the office aware that this follow-up is from your recent emergency room visit. If for any reason you are refused follow-up, please contact the [facility] Emergency Department at and asked to speak to the emergency department charge nurse. Please follow up with your primary care physician. If you do not have a primary care physician, see below: [facility] [address] [place] [id number] [facility] [address] [place] [phone] Seen today for issues with your Love catheter. You have had recurrent issues with his catheter for the past. We recommend you follow-up with urology for more permanent solution and she may need a suprapubic catheter. If you develop any fever chills nausea vomiting other complaints please return to the ED or follow-up as needed. Sepsis Event Note (ED) - Evaluation Sepsis Screening Result: No Definite Risk - Focused Exam Vital Signs: Vital Signs Temp Pulse Resp BP Pulse Ox 03/26/21 19:06 97 F 62 16 141/57 H 98 - Assessment/Plan Plan: Patient 80-year-old male who presents today for Love issues. Will attempt to unclog or change Love and reassess patient.
== END 2021-03-26 19:45 | disposition home or self-care (01) ==
LOC: MW.ED 17:31
DX: T83.098A Other mechanical complication of other urinary catheter, initial encounter (principal); N40.0 Benign prostatic hyperplasia without lower urinary tract symptoms; F03.90 Unspecified dementia, unspecified severity, without behavioral disturbance, psychotic disturbance, mood disturbance, and anxiety; Z86.73 Personal history of transient ischemic attack (TIA), and cerebral infarction without residual deficits; Z79.01 Long term (current) use of anticoagulants; Z79.899 Other long term (current) drug therapy
CPT/HCPCS: 51702; 99283; 99283-25

== ENCOUNTER 2021-05-19 16:22 | Emergency (ER) | payer OTHER, MEDICARE ==
--- NOTE | 2021-05-19 16:53 | EDM.PDOC ---
ED HPI GENERAL MEDICAL PROBLEM - General Chief Complaint: Genitourinary Problem Stated Complaint: PROBLEMS WITH CATHITER Time Seen by Provider: 05/19/21 16:25 Source of Information: Reports: Patient History Limitations: Reports: No Limitations - History of Present Illness INITIAL COMMENTS - FREE TEXT/NARRATIVE: HISTORY AND PHYSICAL: History of present illness: Patient is a 80-year-old female who presents to the emergency room with complaints of drainage around his Love catheter. The daughter who is at bedside states she noticed some urine leaking around the Love site, was concerned that the whole Love system needs to be exchanged. She states they had a caregiver who was in the home but was "let go". Continues to drain urine appropriately. Patient denies any fever, chills, headache, change in vision, syncope or near syncope. Denies any chest pain, back pain, shortness of breath or cough. Denies any abdominal pain, nausea, vomiting, diarrhea, constipation or dysuria. Has not noted any blood in urine or stool. Patient has been eating and drinking appropriately. Review of systems: As per history of present illness and below otherwise all systems reviewed and negative. Past medical history: As per history of present illness and as reviewed below otherwise noncontributory. Surgical history: As per history of present illness and as reviewed below otherwise noncontributory. Social history: See social history for further information Family history: As per history of present illness and as reviewed below otherwise noncontributory. Physical exam: General: Well developed and well nourished 80 year old male. Alert and orientated x 3. Nontoxic in appearance and in no acute distress. Vital signs are stable and have been reviewed by me. Nursing notes were reviewed. Accompanied by daughter. HEENT: Atraumatic, normocephalic, pupils equal and reactive bilaterally, negative for conjunctival pallor or scleral icterus (cataract noted to left eye), mucous membranes moist, trachea midline. No drooling or trismus noted. No meningeal signs. No hot potato voice noted. Lungs: Clear to auscultation bilaterally. No wheezes, rales, or rhonchi. Chest nontender. Normal work of breathing, no accessory muscles used. Heart: S1S2, regular rate and rhythm without overt murmur, gallops, or rubs. No JVD. No peripheral edema Abdomen: Soft, nondistended, nontender. Normoactive bowel sounds. Negative for masses or costovertebral tenderness. Genitourinary/Rectal: Love cather intact without any concerning findings. Has been draining appropriately. Skin: Intact, warm, dry. No lesions or rashes noted. Hematologic: No petechiae or purpra. Mucosa appropriate color and normal nail bed color and refill. Extremities: Atraumatic, moves all extremities per self without difficulty or deficits, negative for cords or calf pain. Neurovascular unremarkable. Neuro: Awake, alert, oriented. Cranial nerves II through XII unremarkable. Cerebellum unremarkable. Motor and sensory unremarkable throughout. Exam nonfocal. Psychiatric: Mood and affect are appropriate. Normal thought process. Answering questions appropriately. Notes: *This patient was seen and evaluated during the 2019 SARS-CoV-2 novel coronavirus pandemic period. Community viral transmission is ongoing at time of this encounter and the emergency department is operating under pandemic response procedures. Patient is a 80-year-old male who presents to the emergency room with request to have his Love catheter exchanged. The daughter states that the Love is leaking and is unsure the last time its been changed. [facility] was [facility] to come here for Love placement. Otherwise patient states he has no complaints or concerns. Vital signs are stable. Love was successful replaced. Love was difficult to remove due to possible adhesions and/or the sediment noted in the distal catheter. Urine shows a UTI. Will treat with antibiotics. The daughter states [facility] will [facility] in [facility] few days. I have talked with the patient about today's findings, in addition to providing specific details for plan of care. Reassessment at the time of disposition demonstrates that the patient is in no acute distress. The patient is stable for discharge, counseling was provided and we discussed in great detail signs and symptoms that would prompt them to return to the Emergency Department. Medication, follow up and supportive care measures were reviewed and discussed. Voices understanding and is agreeable to plan of care. Denies any further questions or concerns at this time. Diagnostics: UA[employer]: Love care/exchange Prescription: Bactrim DS Impression: Complication of love UTI Plan: 1. You were evaluated today on an emergent basis. Your love was replaced. You did have a significant urinary tract infection which you should follow-up with urology and or the DC clinic for reevaluation. 2. You can alternate Tylenol and ibuprofen as needed for pain and fever management. 3. We encourage you to follow up with your primary care provider and/or recommended specialist in the next few days for re-evaluation and further care/management. 4. If your symptoms should worsen, new symptoms develop or any of the signs and symptoms we discussed should arise please return to the emergency room or call 911 (if needed). Definitive disposition and diagnosis as appropriate pending reevaluation and review of above. - Related Data Allergies Allergy/AdvReac Type Severity Reaction Status Date / Time No Known Allergies Allergy Verified 05/19/21 16:41 Home Meds: Home Meds Lidocaine 5% [Lidoderm 5%] 1 patch TOP DAILY 7 Days #7 patch 10/27/20 [Rx] Finasteride 5 mg PO DAILY 01/20/21 [History] Nystatin 01/20/21 [History] Tamsulosin [Flomax] 0.4 mg PO DAILY 01/20/21 [History] Water For Irrigation,Sterile [Sterile Water for Irrigation] 1,000 ml .XX DAILY 01/20/21 [History] Sulfamethoxazole/Trimethoprim [Bactrim Ds Tablet] 1 each PO BID 7 Days #14 tablet 02/20/21 [Rx] Sulfamethoxazole/Trimethoprim [Bactrim Ds Tablet] 1 each PO BID 7 Days #14 tablet 05/19/21 [Rx] Past Medical History Cardiovascular History: Reports: High Cholesterol Genitourinary History: Reports: BPH Other Genitourinary History: Chronic indwelling catheter. Neurological History: Reports: CVA Psychiatric History: Reports: Dementia Hematologic History: Reports: Anemia - Infectious Disease History Infectious Disease History: Reports: None - Past Surgical History HEENT Surgical History: Reports: Other (See Below) Other HEENT Surgeries/Procedures: left corneal transplant Social & Family History - Family History Family Medical History: No Pertinent Family History HEENT: Reports: None - Caffeine Use Caffeine Use: Reports: None ED ROS GENERAL - Review of Systems Review Of Systems: Comprehensive ROS is negative, except as noted in HPI. ED EXAM, RENAL/ - Physical Exam Exam: See Below (See dictation) Course - Vital Signs Last Recorded V/S: Last Vital Signs Temp 96.7 F L 05/19/21 16:38 Pulse 95 05/19/21 16:38 Resp 17 05/19/21 16:38 BP 101/61 05/19/21 16:38 Pulse Ox 96 05/19/21 16:38 - Orders/Labs/Meds Orders: Active Orders 24 hr Category Date Time Status Communication Order [RC] STAT Care 05/19/21 16:41 Active Love Catheter Insertion [Insert Urinary Catheter] [OM. Care 05/19/21 16:45 Ordered PC] Q24H Urinary Catheter Assessment [RC] ASDIRECTED Care 05/19/21 16:41 Active CULTURE URINE [MREF] Stat Lab 05/19/21 17:05 Received Labs: Laboratory Tests 05/19/21 Range/Units 17:05 Urine Color YELLOW Urine Appearance SLT CLOUDY Urine pH 6.5 (5.0-8.0) Ur Specific [place] 1.015 (1.001-1.035) Urine Protein NEGATIVE (NEGATIVE) mg/dL Urine Glucose (UA) NEGATIVE (NEGATIVE) mg/dL Urine Ketones NEGATIVE (NEGATIVE) mg/dL Urine Occult Blood LARGE H (NEGATIVE) Urine Nitrite POSITIVE H (NEGATIVE) Urine Bilirubin NEGATIVE (NEGATIVE) Urine Urobilinogen 0.2 (<2.0) EU/dL Ur Leukocyte Esterase LARGE H (NEGATIVE) Urine RBC 10-20 (0-2/HPF) Urine WBC 30-40 (0-5/HPF) Ur Epithelial Cells FEW (NONE-FEW) Urine Bacteria 2+ H (NEGATIVE) Meds: Medications Discontinued Medications Generic Name Dose Route Start Last Admin Trade Name Freq PRN Reason Stop Dose Admin Lidocaine HCl Confirm 05/19/21 17:01 Lidocaine 2% Viscous Solution 15 Ml Cup Administered 05/19/21 17:02 Dose 15 ml .ROUTE .STK-MED ONE Lidocaine HCl 30 ml 05/19/21 17:23 Lidocaine 2% Jelly 30 Ml Tube MUCMEM 05/19/21 17:24 STAT STA Lidocaine HCl 15 ml 05/19/21 17:23 Lidocaine 2% Viscous Solution 15 Ml Cup PO 05/19/21 17:24 ONETIME ONE Trimethoprim/Sulfamethoxazole 1 tab 05/19/21 17:33 Sulfamethoxazole/Trimethoprim 800-160 Mg Tab PO 05/19/21 17:34 ONETIME ONE Departure - Departure Time of Disposition: 16:53 Disposition: Home, Self-Care 01 Clinical Impression: UTI, Urinary tract infectious disease Complication of Love catheter Qualifiers: Encounter type: initial encounter Qualified Code(s): T83.9XXA - Unspecified complication of genitourinary prosthetic device, implant and graft, initial encounter - Discharge Information Prescriptions: Sulfamethoxazole/Trimethoprim [Bactrim Ds Tablet] 1 each PO BID 7 Days #14 tablet Instructions: Indwelling Urinary Catheter Care, Adult, Urinary Tract Infection, Adult, [id number] Referrals: PCP,Not In Area [Primary Care Provider] - Forms: ED Department Discharge Additional Instructions: The following information is given to patients seen in the emergency department who are being discharged to home. This information is to outline your options for follow-up care. We provide all patients seen in our emergency department with a follow-up referral. The need for follow-up, as well as the timing and circumstances, are variable depending upon the specifics of your emergency department visit. If you don't have a primary care physician on staff, we will provide you with a referral. We always advise you to contact your personal physician following an emergency department visit to inform them of the circumstance of the visit and for follow-up with them and/or the need for any referrals to a consulting specialist. The emergency department will also refer you to a specialist when appropriate. This referral assures that you have the opportunity for follow-up care with a sp ecialist. All of these measure are taken in an effort to provide you with optimal care, which includes your follow-up. Under all circumstances we always encourage you to contact your private physicia n who remains a resource for coordinating your care. When calling for follow-up care, please make the office aware that this follow-up is from your recent emergency room visit. If for any reason you are refused follow-up, please contact the [facility] Emergency Department at and asked to speak to the emergency department charge nurse. [facility] [address] [place] [id number] [facility] [address] [place] [id number] Thank you for choosing the [facility] emergency department in [place] for your medical needs today. It was a pleasure caring for you. Today you were seen in the emergency department for love catheter replacement. 1. You were evaluated today on an emergent basis. Your love was replaced. You did have a significant urinary tract infection which you should follow-up with urology and or the DC clinic for reevaluation. 2. You can alternate Tylenol and ibuprofen as needed for pain and fever management. 3. We encourage you to follow up with your primary care provider and/or recommended specialist in the next few days for re-evaluation and further care/management. 4. If your symptoms should worsen, new symptoms develop or any of the signs and symptoms we discussed should arise please return to the emergency room or call 911 (if needed). Sepsis Event Note (ED) - Evaluation Sepsis Screening Result: No Definite Risk - Focused Exam Vital Signs: Vital Signs Temp Pulse Resp BP Pulse Ox 05/19/21 16:38 96.7 F L 95 17 101/61 96 - My Orders Last 24 Hours: My Active Orders 05/19/21 16:41 Communication Order [RC] STAT Urinary Catheter Assessment [RC] ASDIRECTED 05/19/21 16:45 Love Catheter Insertion [Insert Urinary Catheter] [OM.PC] Q24H 05/19/21 17:05 CULTURE URINE [MREF] Stat - Assessment/Plan Last 24 Hours: My Active Orders 05/19/21 16:41 Communication Order [RC] STAT Urinary Catheter Assessment [RC] ASDIRECTED 05/19/21 16:45 Love Catheter Insertion [Insert Urinary Catheter] [OM.PC] Q24H 05/19/21 17:05 CULTURE URINE [MREF] Stat
[2021-05-19] MEDS ORDERED: Lidocaine 2% Viscous Solution 15 ML Cup ONE (17:01)
[2021-05-19] MEDS ORDERED: Lidocaine 2% Jelly 30 ML Tube MUCMEM STA (17:23)
[2021-05-19] MEDS ORDERED: Lidocaine 2% Viscous Solution 15 ML Cup PO ONE (17:23)
[2021-05-19] MEDS ORDERED: Sulfamethoxazole/Trimethoprim 800-160 MG Tab PO ONE (17:33)
== END 2021-05-19 18:15 | disposition home or self-care (01) ==
LOC: MW.ED 16:22
DX: T83.511A Infection and inflammatory reaction due to indwelling urethral catheter, initial encounter (principal); N39.0 Urinary tract infection, site not specified
CPT/HCPCS: 51702; 81001; 87086; 87088; 87186; 99283; A9270

== ENCOUNTER 2021-07-02 00:35 | Emergency (ER) | payer OTHER, MEDICARE ==
--- NOTE | 2021-07-02 02:28 | EDM.PDOC ---
ED HPI GENERAL MEDICAL PROBLEM - General Chief Complaint: Genitourinary Problem Stated Complaint: PAIN FROM CATHETER Time Seen by Provider: 07/02/21 01:41 - History of Present Illness INITIAL COMMENTS - FREE TEXT/NARRATIVE: HISTORY AND PHYSICAL: History of present illness: This is an 81-year-old gentleman who has a chronic indwelling Contreras who presents ER today secondary to pain and discomfort at the Contreras catheter site. Patient reports that he has been able to pass urine through his Contreras catheter. Patient denies any recent fevers, shakes, chills, nausea, vomiting, diarrhea, dysuria, frequency, urgency. Patient's daughter is at bedside assisting and reports that he has had difficulty with his Contreras catheter since its placement. Review of systems: As per history of present illness and below otherwise all systems reviewed and negative. Past medical history: As per history of present illness and as reviewed below otherwise noncontributory. Surgical history: As per history of present illness and as reviewed below otherwise noncontributory. Social history: No reported history of drug abuse. Family history: As per history of present illness and as reviewed below otherwise noncontributory. Physical exam: This patient was seen and evaluated during the 2019 SARS-CoV-2 novel coronavirus pandemic period. Community viral transmission is ongoing at time of this encounter and the emergency department is operating under pandemic response procedures. Constitutional: Patient is oriented to person, place, and time. Appears well- developed and well-nourished. No distress. HEENT: Moist mucous membranes Head: Normocephalic and atraumatic Eyes: Right eye exhibits no discharge. Left eye exhibits no discharge. No scleral icterus Neck: Normal range of motion. No tracheal deviation present. Cardiovascular: Normal rate and regular rhythm. Pulmonary: Effort normal, no respiratory distress. Abdominal: No distention Musculoskeletal: Normal range of motion Neurologic: Alert and oriented to person, place and time. Skin: [place], warm and dry. Psychiatric: Normal mood and affect. Behavior is normal. Judgment and thought content normal. Nursing note and vital signs have been reviewed Assessment and plan: 81-year-old who presents ER today with an indwelling Contreras catheter. Patient is experiencing discomfort at the catheter site. Daughter reports that they normally change it monthly and has been approximately 2 to 3 weeks since it was last changed. We will go ahead and change the Contreras catheter for the patient and see if that might help his symptoms. Reassessment at the time of disposition demonstrates that the patient is in no acute distress. The patient has remained stable throughout the entire ED visit and is without objective evidence for acute process requiring urgent intervention or hospitalization. The patient is stable for discharge, counseling is provided as documented above, discussed symptomatic treatment and specific conditions for return. I have spoken with the patient/caregiver and discussed todays findings, in addition to providing specific details for the plan of care. Questions are answered and there is agreement with the plan. Definitive disposition and diagnosis as appropriate pending reevaluation and review of above. Bladder Pain Score (Numeric/FACES): 4 - Related Data Allergies Allergy/AdvReac Type Severity Reaction Status Date / Time No Known Allergies Allergy Verified 05/19/21 16:41 Home Meds: Home Meds Lidocaine 5% [Lidoderm 5%] 1 patch TOP DAILY 7 Days #7 patch 10/27/20 [Rx] Finasteride 5 mg PO DAILY 01/20/21 [History] Nystatin 01/20/21 [History] Tamsulosin [Flomax] 0.4 mg PO DAILY 01/20/21 [History] Water For Irrigation,Sterile [Sterile Water for Irrigation] 1,000 ml .XX DAILY 01/20/21 [History] Sulfamethoxazole/Trimethoprim [Bactrim Ds Tablet] 1 each PO BID 7 Days #14 tablet 02/20/21 [Rx] Sulfamethoxazole/Trimethoprim [Bactrim Ds Tablet] 1 each PO BID 7 Days #14 tablet 05/19/21 [Rx] Past Medical History HEENT History: Reports: None Cardiovascular History: Reports: High Cholesterol Respiratory History: Reports: None Gastrointestinal History: Reports: None Genitourinary History: Reports: BPH Other Genitourinary History: Chronic indwelling catheter. Musculoskeletal History: Reports: None Neurological History: Reports: CVA Psychiatric History: Reports: Dementia Endocrine/Metabolic History: Reports: None Hematologic History: Reports: Anemia Immunologic History: Reports: None Oncologic (Cancer) History: Reports: None Dermatologic History: Reports: None - Infectious Disease History Infectious Disease History: Reports: None - Past Surgical History Head Surgeries/Procedures: Reports: None HEENT Surgical History: Reports: Other (See Below) Other HEENT Surgeries/Procedures: left corneal transplant Cardiovascular Surgical History: Reports: None Respiratory Surgical History: Reports: None GI Surgical History: Reports: None Male Surgical History: Reports: None Endocrine Surgical History: Reports: None Neurological Surgical History: Reports: None Musculoskeletal Surgical History: Reports: None Oncologic Surgical History: Reports: None Dermatological Surgical History: Reports: None Social & Family History - Family History Family Medical History: No Pertinent Family History HEENT: Reports: None - Tobacco Use Tobacco Use Status *Q: Former Tobacco User Used Tobacco, but Quit: Yes Month/Year Tobacco Last Used: 2010 - Caffeine Use Caffeine Use: Reports: None - Recreational Drug Use Recreational Drug Use: No ED ROS GENERAL - Review of Systems Review Of Systems: See Below ED EXAM, GENERAL - Physical Exam Exam: See Below Course - Vital Signs Last Recorded V/S: Last Vital Signs Temp 97.3 F 07/02/21 00:55 Pulse 72 07/02/21 00:55 Resp 18 07/02/21 00:55 BP 125/67 07/02/21 00:55 Pulse Ox 97 07/02/21 00:55 - Orders/Labs/Meds Labs: Laboratory Tests 07/02/21 Range/Units 03:21 Urine Color YELLOW Urine Appearance SLT CLOUDY Urine pH 6.0 (5.0-8.0) Ur Specific [place] 1.015 (1.001-1.035) Urine Protein NEGATIVE (NEGATIVE) mg/dL Urine Glucose (UA) NEGATIVE (NEGATIVE) mg/dL Urine Ketones NEGATIVE (NEGATIVE) mg/dL Urine Occult Blood TRACE-INTACT H (NEGATIVE) Urine Nitrite POSITIVE H (NEGATIVE) Urine Bilirubin NEGATIVE (NEGATIVE) Urine Urobilinogen 0.2 (<2.0) EU/dL Ur Leukocyte Esterase LARGE H (NEGATIVE) Urine RBC 0-3 (0-2/HPF) Urine WBC 10-20 (0-5/HPF) Ur Epithelial Cells RARE (NONE-FEW) Amorphous Sediment LIGHT (NEGATIVE) Urine Bacteria 1+ H (NEGATIVE) Meds: Medications Discontinued Medications Generic Name Dose Route Start Last Admin Trade Name Freq PRN Reason Stop Dose Admin Lidocaine HCl 15 ml 07/02/21 03:04 07/02/21 03:20 Lidocaine 2% Viscous Solution 15 Ml Cup PO 07/02/21 03:05 15 ml ONETIME ONE Administration Departure - Departure Time of Disposition: 02:27 Disposition: Home, Self-Care 01 Condition: Good Clinical Impression: Indwelling Contreras catheter calcification - Discharge Information Instructions: Indwelling Urinary Catheter Care, Adult Referrals: Iesha Brady DO [Primary Care Provider] - Forms: ED Department Discharge Additional Instructions: You were seen and evaluated in the ER today secondary to Contreras catheter discomfort. Your Contreras catheter has been changed. Please make an appointment to follow-up with your family doctor or urologist for further management of your indwelling Contreras catheter. The following information is given to patients seen in the emergency department who are being discharged to home. This information is to outline your options for follow-up care. We provide all patients seen in our emergency department with a follow-up referral. The need for follow-up, as well as the timing and circumstances, are variable depending upon the specifics of your emergency department visit. If you don't have a primary care physician on staff, we will provide you with a referral. We always advise you to contact your personal physician following an emergency department visit to inform them of the circumstance of the visit and for follow-up with them and/or the need for any referrals to a consulting specialist. The emergency department will also refer you to a specialist when appropriate. This referral assures that you have the opportunity for follow-up care with a specialist. All of these measure are taken in an effort to provide you with optimal care, which includes your follow-up. Under all circumstances we always encourage you to contact your private physic placido who remains a resource for coordinating your care. When calling for follow- up care, please make the office aware that this follow-up is from your recent emergency room visit. If for any reason you are refused follow-up, please contact the [facility] Emergency Department at and asked to speak to the emergency department charge nurse. [facility] - Primary Care [address] [place] [address] [id number] [address] Sepsis Event Note (ED) - Evaluation Sepsis Screening Result: No Definite Risk - Focused Exam Vital Signs: Vital Signs Temp Pulse Resp BP Pulse Ox 07/02/21 00:55 97.3 F 72 18 125/67 97
[2021-07-02] MEDS ORDERED: Lidocaine 2% Viscous Solution 15 ML Cup PO ONE (03:04)
== END 2021-07-02 03:52 | disposition home or self-care (01) ==
LOC: MW.ED 00:35
DX: T83.091A Other mechanical complication of indwelling urethral catheter, initial encounter (principal); Z86.73 Personal history of transient ischemic attack (TIA), and cerebral infarction without residual deficits; Z87.891 Personal history of nicotine dependence
CPT/HCPCS: 81001; 99283; A9270

== ENCOUNTER 2021-07-29 01:02 | Emergency (ER) | payer OTHER, MEDICARE ==
--- NOTE | 2021-07-29 02:37 | EDM.PDOC ---
ED HPI GENERAL MEDICAL PROBLEM - General Chief Complaint: Genitourinary Problem Stated Complaint: CATHETER ISSUES Time Seen by Provider: 07/29/21 01:51 - History of Present Illness INITIAL COMMENTS - FREE TEXT/NARRATIVE: CHIEF COMPLAINT(S): Contreras catheter exchange HISTORY OF PRESENT ILLNESS: This is an 81-year-old man with chronic indwelling catheter to the emergency department with problems with Contreras catheter. History provided by family member who is in presence. State that the catheter is not draining properly and seems to be leaking around the catheter. She states that she tried to flush the catheter however there was no significant improvement in the drainage. She denies any fevers, chills, nausea, vomiting or increased pain. She states that he is otherwise acting normally. She denies any other s ymptoms. REVIEW OF SYSTEMS: Constitutional: Denies fever, chills. Eyes: Denies eye pain Ears, Nose, Mouth, & Throat: Denies earache Cardiovascular: Denies chest pain Respiratory: Denies shortness of breath Gastrointestinal: Denies Nausea, vomiting, diarrhea, hematochezia. Genitourinary: Positive for decreased urinary output from Contreras catheter. Skin:Denies a rash MSK: Denies joint pain Neurological: Denies blurred vision Psychiatric: Denies depression PAST MEDICAL HISTORY: As per history of present illness and as reviewed below otherwise noncontributory. SURGICAL HISTORY: As per history of present illness and as reviewed below otherwise noncontributory. SOCIAL HISTORY: As per history of present illness and as reviewed below otherwise noncontributory. FAMILY HISTORY: As per history of present illness and as reviewed below otherwise noncontributory. EXAMINATION OF ORGAN SYSTEMS/BODY AREAS: Constitutional: Blood pressure was 135/55, heart rate 70, respiratory rate 20 with an oxygen saturation of 90% on room air. Temperature 36.2 General: Well-appearing man who is in no acute distress psychiatric: Appropriate mood and affect. Eyes: No scleral icterus or conjunctival erythema ENMT: Moist mucous membranes. No pharyngeal erythema Cardiovascular: Regular, rate, and rhythm. No gallops, murmurs, or rubs. Bilateral upper extremity pulses symmetric and intact. No peripheral edema. No JVD. Respiratory: Lungs clear to auscultation bilaterally. No wheezes, rales, or rhonchi. Gastrointestinal: Soft, non-tender, non-distended. Normoactive bowel sounds Genitourinary: No suprapubic tenderness Musculoskeletal: Normal range of motion. Skin: No lesions or abrasions. Neurological: Alert, GCS 15 MEDICAL DECISION MAKING AND COURSE IN THE ED WITH INTERPRETATION/REVIEW OF DIAGNOSTIC STUDIES: This is an 81-year-old man with a chronic indwelling Contreras catheter who comes emergency room with decreased urinary output who has stable vital at this time given the concern for decreased urinary output we will exchange the Contreras catheter. I do not believe any labs or imaging are otherwise indicated. Contreras catheter was exchanged without any. On review of the Contreras catheter there is a significant amount of calcification and the distal end of his Contreras catheter was clogged. At this time I did discuss with daughter at bedside that the patient needs to have his catheter changed at an outpatient basis and discussed that she could flush to help prevent this patient's blockage. We did educate the patient at bedside and his daughter we will look for a consult for possible home health care to help assist with this Contreras catheter. They were amenable to this plan and had no further questions. DISPOSITION: The patient was discharged home in stable condition. The patient will follow up with primary care physician to 5 days CONDITION: Fair PROCEDURES: None FINAL IMPRESSION(S)/DIAGNOSES: 1. Acute Contreras catheter malfunction status post replacement William Miguel M.D. - Related Data Allergies Allergy/AdvReac Type Severity Reaction Status Date / Time No Known Allergies Allergy Verified 07/29/21 01:23 Home Meds: Home Meds Lidocaine 5% [Lidoderm 5%] 1 patch TOP DAILY 7 Days #7 patch 10/27/20 [Rx] Finasteride 5 mg PO DAILY 01/20/21 [History] Nystatin 01/20/21 [History] Tamsulosin [Flomax] 0.4 mg PO DAILY 01/20/21 [History] Water For Irrigation,Sterile [Sterile Water for Irrigation] 1,000 ml .XX DAILY 01/20/21 [History] Sulfamethoxazole/Trimethoprim [Bactrim Ds Tablet] 1 each PO BID 7 Days #14 tablet 02/20/21 [Rx] Sulfamethoxazole/Trimethoprim [Bactrim Ds Tablet] 1 each PO BID 7 Days #14 tablet 05/19/21 [Rx] Past Medical History HEENT History: Reports: None Cardiovascular History: Reports: High Cholesterol Respiratory History: Reports: None Gastrointestinal History: Reports: None Genitourinary History: Reports: BPH Other Genitourinary History: Chronic indwelling catheter. Musculoskeletal History: Reports: None Neurological History: Reports: CVA Psychiatric History: Reports: Dementia Endocrine/Metabolic History: Reports: None Hematologic History: Reports: Anemia Immunologic History: Reports: None Oncologic (Cancer) History: Reports: None Dermatologic History: Reports: None - Infectious Disease History Infectious Disease History: Reports: None - Past Surgical History Head Surgeries/Procedures: Reports: None HEENT Surgical History: Reports: Other (See Below) Other HEENT Surgeries/Procedures: left corneal transplant Cardiovascular Surgical History: Reports: None Respiratory Surgical History: Reports: None GI Surgical History: Reports: None Male Surgical History: Reports: None Endocrine Surgical History: Reports: None Neurological Surgical History: Reports: None Musculoskeletal Surgical History: Reports: None Oncologic Surgical History: Reports: None Dermatological Surgical History: Reports: None Social & Family History - Family History Family Medical History: No Pertinent Family History HEENT: Reports: None - Tobacco Use Tobacco Use Status *Q: Never Tobacco User - Caffeine Use Caffeine Use: Reports: Coffee - Recreational Drug Use Recreational Drug Use: No ED ROS GENERAL - Review of Systems Review Of Systems: See Below ED EXAM, GENERAL - Physical Exam Exam: See Below Course - Vital Signs Last Recorded V/S: Last Vital Signs Temp 36.2 C 07/29/21 01:24 Pulse 70 07/29/21 01:24 Resp 20 07/29/21 01:24 BP 135/55 L 07/29/21 01:24 Pulse Ox 96 07/29/21 01:24 Departure - Departure Time of Disposition: 02:36 Disposition: Home, Self-Care 01 Condition: Fair Clinical Impression: Complication of Contreras catheter - Discharge Information *PRESCRIPTION DRUG MONITORING PROGRAM REVIEWED*: No *COPY OF PRESCRIPTION DRUG MONITORING REPORT IN PATIENT ELLYN: No Instructions: Indwelling Urinary Catheter Care, Adult, [id number], Indwelling Urinary Catheter Insertion, Care After Referrals: Iesha Brady DO [Primary Care Provider] - Forms: ED Department Discharge Additional Instructions: Your evaluated today on an emergent basis. At this time we did switch out the Contreras catheter. As discussed you may irrigate the Contreras catheter every other day as needed to help prevent blockage. As discussed we will attempt to contact social services coordinator to help with Contreras catheter changes. If you do not receive a call by Saturday please call back to the emergency department and speak with the staff books salesperson. If you have any concerns or worsening symptoms please return to the emergency department. Please follow-up with your primary care physician as needed. [facility] - Primary Care [address] [place] [address] [facility] [address] [place] [id number] The patient is informed of any results of their evaluation and diagnostic workup and all questions are answered. They are given discharge instructions and return precautions. The patient is stable for discharge. The patient states they understand and agree with the plan and that they will return if their symptoms get worse or if they have any new concerns. The following information is given to patients seen in the emergency department who are being discharged to home. This information is to outline your options for follow-up care. We provide all patients seen in our emergency department with a follow-up referral. The need for follow-up, as well as the timing and circumstances, are variable depending upon the specifics of your emergency department visit. If you don't have a primary care physician on staff, we will provide you with a referral. We always advise you to contact your personal physician following an emergency department visit to inform them of the circumstance of the visit and for follow-up with them and/or the need for any referrals to a consulting specialist. The emergency department will also refer you to a specialist when appropriate. This referral assures that you have the opportunity for follow-up care with a specialist. All of these measure are taken in an effort to provide you with optimal care, which includes your follow-up. Under all circumstances we always encourage you to contact your private physician who remains a resource for coordinating your care. When calling for follow-up care, please make the office aware that this follow-up is from your recent emergency room visit. If for any reason you are refused follow-up, please contact the [facility] Emergency Department at and asked to speak to the emergency department charge nurse.
== END 2021-07-29 02:45 | disposition home or self-care (01) ==
LOC: MW.ED 01:02
DX: T83.091A Other mechanical complication of indwelling urethral catheter, initial encounter (principal); E78.00 Pure hypercholesterolemia, unspecified; Z86.73 Personal history of transient ischemic attack (TIA), and cerebral infarction without residual deficits; Z79.899 Other long term (current) drug therapy
CPT/HCPCS: 51702; 99283-25

== ENCOUNTER 2021-08-04 02:24 | Emergency (ER) | payer OTHER, MEDICARE ==
[2021-08-04] MEDS ORDERED: Lidocaine 2% Viscous Solution 15 ML Cup PO ONE ×2 (02:29→04:24)
--- NOTE | 2021-08-04 02:48 | EDM.PDOC ---
ED HPI GENERAL MEDICAL PROBLEM - General Chief Complaint: Genitourinary Problem Stated Complaint: CATHETER ISSUES Time Seen by Provider: 08/04/21 02:25 Source of Information: Reports: Patient History Limitations: Reports: Other (Dementia) - History of Present Illness INITIAL COMMENTS - FREE TEXT/NARRATIVE: 81-year-old male with history of dementia pulled out his Love last night. Patient thought that the Love bag was going to explode so he became agitated and pulled out his Love around 5 PM. Caregiver is concerned for possible UTI. ROS: A 10-point review of systems, other than pertinent positives and negatives as stated per HPI, is otherwise negative Past medical history: No additional pertinent history Past Surgical history: No additional pertinent history Social history: No additional pertinent history Family history: No additional pertinent history PHYSICAL EXAM General: demented No distress HEENT: dry mucous membrane Neck: supple, no meningismus, no Kernig or Brudzinski Cardiac: S1S2 RRR Respiratory: CTAB, no crackles or rales, no wheezing Abdomen: Soft, nontender, no rebound or guarding, nondistended, no pulsatile mass. Back: nontender Musculoskeletal: NVI distally, no deformity Neuro: No focal deficits, demented - Related Data Allergies Allergy/AdvReac Type Severity Reaction Status Date / Time No Known Allergies Allergy Verified 08/04/21 02:36 Home Meds: Home Meds Lidocaine 5% [Lidoderm 5%] 1 patch TOP DAILY 7 Days #7 patch 10/27/20 [Rx] Finasteride 5 mg PO DAILY 01/20/21 [History] Nystatin 01/20/21 [History] Tamsulosin [Flomax] 0.4 mg PO DAILY 01/20/21 [History] Water For Irrigation,Sterile [Sterile Water for Irrigation] 1,000 ml .XX DAILY 01/20/21 [History] Sulfamethoxazole/Trimethoprim [Bactrim Ds Tablet] 1 each PO BID 7 Days #14 tablet 02/20/21 [Rx] Sulfamethoxazole/Trimethoprim [Bactrim Ds Tablet] 1 each PO BID 7 Days #14 tablet 05/19/21 [Rx] cephALEXin [Keflex] 500 mg PO Q8H #30 cap 08/04/21 [Rx] Past Medical History HEENT History: Reports: None Cardiovascular History: Reports: High Cholesterol Respiratory History: Reports: None Gastrointestinal History: Reports: None Genitourinary History: Reports: BPH Other Genitourinary History: Chronic indwelling catheter. Musculoskeletal History: Reports: None Neurological History: Reports: CVA Psychiatric History: Reports: Dementia Endocrine/Metabolic History: Reports: None Hematologic History: Reports: Anemia Immunologic History: Reports: None Oncologic (Cancer) History: Reports: None Dermatologic History: Reports: None - Infectious Disease History Infectious Disease History: Reports: None - Past Surgical History Head Surgeries/Procedures: Reports: None HEENT Surgical History: Reports: Other (See Below) Other HEENT Surgeries/Procedures: left corneal transplant Cardiovascular Surgical History: Reports: None Respiratory Surgical History: Reports: None GI Surgical History: Reports: None Male Surgical History: Reports: None Endocrine Surgical History: Reports: None Neurological Surgical History: Reports: None Musculoskeletal Surgical History: Reports: None Oncologic Surgical History: Reports: None Dermatological Surgical History: Reports: None Social & Family History - Family History Family Medical History: No Pertinent Family History HEENT: Reports: None - Tobacco Use Second Hand Smoke Exposure: No - Caffeine Use Caffeine Use: Reports: None - Recreational Drug Use Recreational Drug Use: No ED ROS GENERAL - Review of Systems Review Of Systems: See Below (see dictation) ED EXAM, GENERAL - Physical Exam Exam: See Below (see dictation) Course - Vital Signs Last Recorded V/S: Last Vital Signs Temp 98 F 08/04/21 02:33 Pulse 75 08/04/21 02:33 Resp 20 08/04/21 02:33 BP 136/68 08/04/21 02:33 Pulse Ox 98 08/04/21 02:33 - Orders/Labs/Meds Orders: Active Orders 24 hr Category Date Time Status Love Catheter Insertion [Insert Urinary Catheter] [OM. Care 08/04/21 02:45 Ordered PC] Q24H Urinary Catheter Assessment [RC] ASDIRECTED Care 08/04/21 02:43 Active CULTURE URINE [MREF] Stat Lab 08/04/21 03:40 Received Labs: Laboratory Tests 08/04/21 Range/Units 03:40 Urine Color YELLOW Urine Appearance SLT CLOUDY Urine pH 6.0 (5.0-8.0) Ur Specific [place] 1.025 (1.001-1.035) Urine Protein NEGATIVE (NEGATIVE) mg/dL Urine Glucose (UA) NEGATIVE (NEGATIVE) mg/dL Urine Ketones NEGATIVE (NEGATIVE) mg/dL Urine Occult Blood TRACE-INTACT H (NEGATIVE) Urine Nitrite POSITIVE H (NEGATIVE) Urine Bilirubin NEGATIVE (NEGATIVE) Urine Urobilinogen 0.2 (<2.0) EU/dL Ur Leukocyte Esterase MODERATE H (NEGATIVE) Urine RBC 1-4 (0-2/HPF) Urine WBC 20-30 (0-5/HPF) Ur Epithelial Cells RARE (NONE-FEW) Urine Bacteria FEW (NEGATIVE) Meds: Medications Discontinued Medications Generic Name Dose Route Start Last Admin Trade Name Shamirq PRN Reason Stop Dose Admin Lidocaine HCl 15 ml 08/04/21 02:29 08/04/21 03:10 Lidocaine 2% Viscous Solution 15 Ml Cup PO 08/04/21 02:30 15 ml ONETIME ONE Administration Lidocaine HCl Confirm 08/04/21 04:11 08/04/21 04:24 Lidocaine 2% Viscous Solution 15 Ml Cup Administered 08/04/21 04:12 Not Given Dose 15 ml .ROUTE .STK-MED ONE Lidocaine HCl 15 ml 08/04/21 04:24 Lidocaine 2% Viscous Solution 15 Ml Cup PO 08/04/21 04:25 ONETIME ONE - Re-Assessments/Exams Free Text/Narrative Re-Assessment/Exam: 08/04/21 03:48 After love reinsertion in the ER, the patient improved and is currently stable for discharge. I performed a repeat exam and did not appreciate new abnormal findings. Patient exhibits normal vital signs. I advised the patient to return to the ER for reevaluation if symptoms worsened, including fever, worsening pain, or any other worrisome symptoms. I instructed the patient to follow up with their urologist within 2-3 days. MEDICAL DECISION MAKING: I reviewed the patients past medical records, lab and radiographic findings. I discussed the case with the patient. My differential diagnosis included: Complicated UTI, Love dislodgment. Departure - Departure Time of Disposition: 04:27 Disposition: Home, Self-Care 01 Condition: Good Clinical Impression: Dislodged Love catheter, Complicated UTI (urinary tract infection) - Discharge Information *PRESCRIPTION DRUG MONITORING PROGRAM REVIEWED*: Not Applicable *COPY OF PRESCRIPTION DRUG MONITORING REPORT IN PATIENT ELLYN: Not Applicable Prescriptions: cephALEXin [Keflex] 500 mg PO Q8H #30 cap Instructions: Indwelling Urinary Catheter Care, Adult, Urinary Tract Infection, Adult Referrals: Iesha Brady DO [Primary Care Provider] - 2 Days Forms: ED Department Discharge Additional Instructions: The need for follow-up, as well as the timing and circumstances, are variable depending upon the specifics of your emergency department visit. If you don't have a primary care physician on staff, we will provide you with a referral. We always advise you to contact your personal physician following an emergency department visit to inform them of the circumstance of the visit and for follow-up with them and/or the need for any referrals to a consulting specialist. The emergency department will also refer you to a specialist when appropriate. This referral assures that you have the opportunity for follow-up care with a specialist. All of these measure are taken in an effort to provide you with optimal care, which includes your follow-up. Under all circumstances we always encourage you to contact your private physician who remains a resource for coordinating your care. When calling for follow-up care, please make the office aware that this follow-up is from your recent emergency room visit. If for any reason you are refused follow-up, please contact the [facility] Emergency Department at and asked to speak to the emergency department charge nurse. If you do not have a primary care doctor, please follow up with the clinics below within 3-5 days. [facility] - Primary Care [address] [place] [address] [id number] [address] [address] Sepsis Event Note (ED) - Evaluation Sepsis Screening Result: No Definite Risk - Focused Exam Vital Signs: Vital Signs Temp Pulse Resp BP Pulse Ox 08/04/21 02:33 98 F 75 20 136/68 98 - My Orders Last 24 Hours: My Active Orders 08/04/21 02:43 Urinary Catheter Assessment [RC] ASDIRECTED 08/04/21 02:45 Love Catheter Insertion [Insert Urinary Catheter] [OM.PC] Q24H 08/04/21 03:40 CULTURE URINE [MREF] Stat - Assessment/Plan Last 24 Hours: My Active Orders 08/04/21 02:43 Urinary Catheter Assessment [RC] ASDIRECTED 08/04/21 02:45 Love Catheter Insertion [Insert Urinary Catheter] [OM.PC] Q24H 08/04/21 03:40 CULTURE URINE [MREF] Stat
[2021-08-04] MEDS ORDERED: Lidocaine 2% Viscous Solution 15 ML Cup ONE (04:11)
== END 2021-08-04 04:39 | disposition home or self-care (01) ==
LOC: MW.ED 02:24
DX: T83.518A Infection and inflammatory reaction due to other urinary catheter, initial encounter (principal); N39.0 Urinary tract infection, site not specified; N40.0 Benign prostatic hyperplasia without lower urinary tract symptoms; Z79.899 Other long term (current) drug therapy
CPT/HCPCS: 51702; 81001; 87086; 99283; A9270

== ENCOUNTER 2021-08-27 02:36 | Emergency (ER) | payer OTHER, MEDICARE ==
--- NOTE | 2021-08-27 03:24 | EDM.PDOC ---
ED HPI GENERAL MEDICAL PROBLEM - General Chief Complaint: General Stated Complaint: CATHETER ISSUES Time Seen by Provider: 08/27/21 02:37 - History of Present Illness INITIAL COMMENTS - FREE TEXT/NARRATIVE: CHIEF COMPLAINT(S): Contreras catheter exchange HISTORY OF PRESENT ILLNESS: This is an 81-year-old man with chronic indwelling catheter to the emergency department with problems with Contreras catheter. History provided by family member who is in presence. State that the catheter is not draining properly and seems to be leaking around the catheter. She denies any fevers, chills, nausea, vomiting or increased pain. She states that he is otherwise acting normally. She denies any other symptoms. REVIEW OF SYSTEMS: Constitutional: Denies fever, chills. Eyes: Denies eye pain Ears, Nose, Mouth, & Throat: Denies earache Cardiovascular: Denies chest pain Respiratory: Denies shortness of breath Gastrointestinal: Denies Nausea, vomiting, diarrhea, hematochezia. Genitourinary: Positive for decreased urinary output from Contreras catheter. Skin:Denies a rash MSK: Denies joint pain Neurological: Denies blurred vision Psychiatric: Denies depression PAST MEDICAL HISTORY: As per history of present illness and as reviewed below otherwise noncontributory. SURGICAL HISTORY: As per history of present illness and as reviewed below otherwise noncontributory. SOCIAL HISTORY: As per history of present illness and as reviewed below otherwise noncontributory. FAMILY HISTORY: As per history of present illness and as reviewed below otherwise noncontributory. EXAMINATION OF ORGAN SYSTEMS/BODY AREAS: Constitutional: Blood pressure was 128/49, heart rate 79, respiratory rate 19 with an oxygen saturation 96% on room air. Temperature 36.9 General: Well-appearing man who is in no acute distress psychiatric: Appropriate mood and affect. Eyes: No scleral icterus or conjunctival erythema ENMT: Moist mucous membranes. No pharyngeal erythema Cardiovascular: Regular, rate, and rhythm. No gallops, murmurs, or rubs. Reese ateral upper extremity pulses symmetric and intact. No peripheral edema. No JVD. Respiratory: Lungs clear to auscultation bilaterally. No wheezes, rales, or rhonchi. Gastrointestinal: Soft, non-tender, non-distended. Normoactive bowel sounds Genitourinary: No suprapubic tenderness Musculoskeletal: Normal range of motion. Skin: No lesions or abrasions. Neurological: Alert, GCS 15 MEDICAL DECISION MAKING AND COURSE IN THE ED WITH INTERPRETATION/REVIEW OF DIAGNOSTIC STUDIES: This is an 81-year-old man with a chronic indwelling Contreras catheter who comes emergency room with decreased urinary output who has stable vital at this time given the concern for decreased urinary output we will exchange the Contreras catheter. I do not believe any labs or imaging are otherwise indicated. Contreras catheter was exchanged without any complications. In discussion with the daughter at bedside we did request social help last time and the [facility] is arranging that currently at this time and she expressed thanks. At this time I do not believe any further work-up or anything is indicated. They were amenable to discharge and had no further questions DISPOSITION: The patient was discharged home in stable condition. The patient will follow up with primary care physician to 5 days CONDITION: Fair PROCEDURES: None FINAL IMPRESSION(S)/DIAGNOSES: 1. Acute Contreras catheter malfunction status post replacement William Miguel M.D. - Related Data Allergies Allergy/AdvReac Type Severity Reaction Status Date / Time No Known Allergies Allergy Verified 08/27/21 02:52 Home Meds: Home Meds Lidocaine 5% [Lidoderm 5%] 1 patch TOP DAILY 7 Days #7 patch 10/27/20 [Rx] Finasteride 5 mg PO DAILY 01/20/21 [History] Nystatin 01/20/21 [History] Tamsulosin [Flomax] 0.4 mg PO DAILY 01/20/21 [History] Water For Irrigation,Sterile [Sterile Water for Irrigation] 1,000 ml .XX DAILY 01/20/21 [History] Sulfamethoxazole/Trimethoprim [Bactrim Ds Tablet] 1 each PO BID 7 Days #14 tablet 02/20/21 [Rx] Sulfamethoxazole/Trimethoprim [Bactrim Ds Tablet] 1 each PO BID 7 Days #14 tablet 05/19/21 [Rx] cephALEXin [Keflex] 500 mg PO Q8H #30 cap 08/04/21 [Rx] Past Medical History HEENT History: Reports: None Cardiovascular History: Reports: High Cholesterol Respiratory History: Reports: None Gastrointestinal History: Reports: None Genitourinary History: Reports: BPH Other Genitourinary History: Chronic indwelling catheter. Musculoskeletal History: Reports: None Neurological History: Reports: CVA Psychiatric History: Reports: Dementia Endocrine/Metabolic History: Reports: None Hematologic History: Reports: Anemia Immunologic History: Reports: None Oncologic (Cancer) History: Reports: None Dermatologic History: Reports: None - Infectious Disease History Infectious Disease History: Reports: None - Past Surgical History Head Surgeries/Procedures: Reports: None HEENT Surgical History: Reports: Other (See Below) Other HEENT Surgeries/Procedures: left corneal transplant Cardiovascular Surgical History: Reports: None Respiratory Surgical History: Reports: None GI Surgical History: Reports: None Male Surgical History: Reports: None Endocrine Surgical History: Reports: None Neurological Surgical History: Reports: None Musculoskeletal Surgical History: Reports: None Oncologic Surgical History: Reports: None Dermatological Surgical History: Reports: None Social & Family History - Family History Family Medical History: No Pertinent Family History HEENT: Reports: None - Tobacco Use Tobacco Use Status *Q: Never Tobacco User - Caffeine Use Caffeine Use: Reports: None - Recreational Drug Use Recreational Drug Use: No ED ROS GENERAL - Review of Systems Review Of Systems: See Below ED EXAM, GENERAL - Physical Exam Exam: See Below Course - Vital Signs Last Recorded V/S: Last Vital Signs Temp 36.9 C 08/27/21 02:53 Pulse 79 08/27/21 02:53 Resp 19 08/27/21 02:53 BP 128/49 L 08/27/21 02:53 Pulse Ox 96 08/27/21 02:53 Departure - Departure Time of Disposition: 03:24 Disposition: Home, Self-Care 01 Condition: Fair Clinical Impression: Contreras catheter problem - Discharge Information *PRESCRIPTION DRUG MONITORING PROGRAM REVIEWED*: No *COPY OF PRESCRIPTION DRUG MONITORING REPORT IN PATIENT ELLYN: No Referrals: PCP,None [Primary Care Provider] - Forms: ED Department Discharge Additional Instructions: You were evaluated today on an emergent basis. We were able to exchange the Contreras catheter. I am really excited that you were able to find help through the [facility] after we placed the request. As always you are welcome to return to the emergency department for any concerns. [facility] - Primary Care [address] [place] [id number] [address] The patient is informed of any results of their evaluation and diagnostic workup and all questions are answered. They are given discharge instructions and return precautions. The patient is stable for discharge. The patient states they understand and agree with the plan and that they will return if their symptoms get worse or if they have any new concerns. The following information is given to patients seen in the emergency department who are being discharged to home. This information is to outline your options for follow-up care. We provide all patients seen in our emergency department with a follow-up referral. The need for follow-up, as well as the timing and circumstances, are variable depending upon the specifics of your emergency department visit. If you don't have a primary care physician on staff, we will provide you with a referral. We always advise you to contact your personal physician following an emergency department visit to inform them of the circumstance of the visit and for follow-up with them and/or the need for any referrals to a consulting specialist. The emergency department will also refer you to a specialist when appropriate. This referral assures that you have the opportunity for follow-up care with a specialist. All of these measure are taken in an effort to provide you with optimal care, which includes your follow-up. Under all circumstances we always encourage you to contact your private physician who remains a resource for coordinating your care. When calling for follow-up care, please make the office aware that this follow-up is from your recent emergency room visit. If for any reason you are refused follow-up, please contact the [facility] Emergency Department at and asked to speak to the emergency department charge nurse. Sepsis Event Note (ED) - Focused Exam Vital Signs: Vital Signs Temp Pulse Resp BP Pulse Ox 08/27/21 02:53 36.9 C 79 19 128/49 L 96
== END 2021-08-27 03:34 | disposition home or self-care (01) ==
LOC: MW.ED 02:36
DX: T83.098A Other mechanical complication of other urinary catheter, initial encounter (principal); E78.00 Pure hypercholesterolemia, unspecified; Z79.899 Other long term (current) drug therapy
CPT/HCPCS: 51702; 99283-25

== ENCOUNTER 2021-09-22 22:25 | Emergency (ER) | payer OTHER, MEDICARE ==
[2021-09-22] MEDS ORDERED: Lidocaine 4% Top Soln 50 ML Bottle MUCMEM ONE (23:32)
--- NOTE | 2021-09-22 23:34 | EDM.PDOC ---
ED HPI GENERAL MEDICAL PROBLEM - General Chief Complaint: Genitourinary Problem Stated Complaint: NEEDS CATHETER CHANGED Time Seen by Provider: 09/22/21 22:27 - History of Present Illness INITIAL COMMENTS - FREE TEXT/NARRATIVE: History of present illness: [] This pleasant 81-year-old male is catheter dependent with a Contreras catheter. Suprapubic was advised in the past from review of the records but the family refused. He periodically gets his catheter changed in tonight because discomfort in the area of the bladder which they attribute to the catheter. The [facility] is told him to come to the emergency department and needed change. The CO is working on trying to find a more appropriate place for him to have his catheter changed but they do not do it there at the [facility] locally and the [facility] is in [place] which is quite a distance. Review of systems: As per history of present illness and below otherwise all systems reviewed and negative. Past medical history: As per history of present illness and as reviewed below otherwise noncontributory. Surgical history: As per history of present illness and as reviewed below otherwise noncontributory. Social history: No reported history of drug or alcohol abuse. Family history: As per history of present illness and as reviewed below otherwise noncontributory. Physical exam: Constitutional - well developed, well-nourished and in no acute distress HEENT - normocephalic, no evidence of trauma - external nose and mouth normal - no mass in neck and no JVD - mucosae moist EYES - full EOM, PERRL, no icterus - no evidence of inflammation, injection, or drainage Respiratory - no respiratory distress, equal bilateral expansion GI - abdomen soft without distension or organomegaly - no guard or rebound Musculoskeletal no gross deformity of long bones or joints - no tenderness, swelling or edema Neurologic - Alert and oriented times four - CN II-XII grossly intact - motor sensory and coordination symmetrically normal Psychiatric - appropriate mood and affect with normal thought content Hematologic - No petechiae or purpura - mucosa appropriate color and sclera not pale - normal nail bed color and refill Integument - no rash or evidence of trauma - normal turgor Diagnostics: [] Therapeutics: [] Impression: [] Plan: [] Definitive disposition and diagnosis as appropriate pending reevaluation and review of above. - Related Data Allergies Allergy/AdvReac Type Severity Reaction Status Date / Time No Known Allergies Allergy Verified 09/22/21 22:35 Home Meds: Home Meds Tamsulosin [Flomax] 0.4 mg PO DAILY 01/20/21 [History] Water For Irrigation,Sterile [Sterile Water for Irrigation] 1,000 ml .XX DAILY 01/20/21 [History] Alendronate [Fosamax] 70 mg PO WEEKLY 09/22/21 [History] Aspirin 81 mg PO DAILY 09/22/21 [History] Cyclobenzaprine [Flexeril] 10 mg PO DAILY 09/22/21 [History] Gabapentin [Neurontin] 300 mg PO DAILY 09/22/21 [History] Omeprazole 20 mg PO 09/22/21 [History] QUEtiapine [SEROquel] 12.5 mg PO DAILY 09/22/21 [History] atorvaSTATin [Lipitor] 10 mg PO BEDTIME 09/22/21 [History] Past Medical History HEENT History: Reports: None, Hard of Hearing, Impaired Vision, Other (See Below) Other HEENT History: wears glasses, hard of hearing bilaterally (wears hearing a ides), blind in left eye Cardiovascular History: Reports: High Cholesterol, [place] Respiratory History: Reports: None Gastrointestinal History: Reports: None Genitourinary History: Reports: BPH, UTI, Recurrent Other Genitourinary History: Chronic indwelling catheter. Musculoskeletal History: Reports: Fibromyalgia Neurological History: Reports: CVA, Other (See Below) Other Neuro History: dementia Psychiatric History: Reports: Dementia Endocrine/Metabolic History: Reports: None Hematologic History: Reports: Anemia Immunologic History: Reports: None Oncologic (Cancer) History: Reports: None Dermatologic History: Reports: None - Infectious Disease History Infectious Disease History: Reports: None - Past Surgical History Head Surgeries/Procedures: Reports: None HEENT Surgical History: Reports: Cataract Surgery, Other (See Below) Other HEENT Surgeries/Procedures: left corneal transplant Cardiovascular Surgical History: Reports: None Respiratory Surgical History: Reports: None GI Surgical History: Reports: None Male Surgical History: Reports: None Endocrine Surgical History: Reports: None Neurological Surgical History: Reports: None Musculoskeletal Surgical History: Reports: None Oncologic Surgical History: Reports: None Dermatological Surgical History: Reports: None Social & Family History - Family History Family Medical History: No Pertinent Family History HEENT: Reports: None - Tobacco Use Tobacco Use Status *Q: Former Tobacco User Used Tobacco, but Quit: Yes Month/Year Tobacco Last Used: 1989 - Caffeine Use Caffeine Use: Reports: Coffee - Recreational Drug Use Recreational Drug Use: No ED ROS GENERAL - Review of Systems Review Of Systems: Comprehensive ROS is negative, except as noted in HPI. ED EXAM, GENERAL - Physical Exam Exam: See Below Free Text/Narrative:: My physical exam is in the HPI Course - Vital Signs Last Recorded V/S: Last Vital Signs Temp 36.3 C 09/22/21 22:45 Pulse 76 09/22/21 22:45 Resp 16 09/22/21 22:45 BP 134/61 09/22/21 22:45 Pulse Ox 95 09/22/21 22:45 - Orders/Labs/Meds Meds: Medications Discontinued Medications Generic Name Dose Route Start Last Admin Trade Name Estefani PRN Reason Stop Dose Admin Lidocaine HCl 10 ml 09/22/21 23:32 Lidocaine 4% Top Soln 50 Ml Bottle MUCMEM 09/22/21 23:33 ONETIME ONE Lidocaine HCl 10 ml 09/22/21 23:51 Lidocaine 2% Jelly 30 Ml Tube MUCMEM 09/22/21 23:52 STAT STA - Re-Assessments/Exams Free Text/Narrative Re-Assessment/Exam: 09/23/21 00:17 Catheter was changed by nursing staff. Patient did have urine output. Departure - Departure Time of Disposition: 00:18 Disposition: Home, Self-Care 01 Condition: Good Clinical Impression: Catheter (urine) change required - Discharge Information Referrals: PCP,None [Primary Care Provider] - Forms: ED Department Discharge Additional Instructions: [facility] for [facility] change in more appropriate time so is not in here waiting for the emergency doctor in the middle of the night. Welcome to return for any symptoms that cause any concern. [facility] - Primary Care [address] [place] [id number] [id number] The following information is given to patients seen in the emergency department who are being discharged to home. This information is to outline your options for follow-up care. We provide all patients seen in our emergency department with a follow-up referral. The need for follow-up, as well as the timing and circumstances, are variable depending upon the specifics of your emergency department visit. If you don't have a primary care physician on staff, we will provide you with a referral. We always advise you to contact your personal physician following an emergency department visit to inform them of the circumstance of the visit and for follow-up with them and/or the need for any referrals to a consulting specialist. The emergency department will also refer you to a specialist when appropriate. This referral assures that you have the opportunity for follow-up care with a specialist. All of these measure are taken in an effort to provide you with optimal care, which includes your follow-up. Under all circumstances we always encourage you to contact your private physician who remains a resource for coordinating your care. When calling for follow-up care, please make the office aware that this follow-up is from your recent emergency room visit. If for any reason you are refused follow-up, please contact the [facility] Emergency Department at and asked to speak to the emergency department charge nurse. Sepsis Event Note (ED) - Evaluation Sepsis Screening Result: No Definite Risk - Focused Exam Vital Signs: Vital Signs Temp Pulse Resp BP Pulse Ox 09/22/21 22:45 36.3 C 76 16 134/61 95
[2021-09-22] MEDS ORDERED: Lidocaine 2% Jelly 30 ML Tube MUCMEM STA (23:51)
== END 2021-09-23 00:40 | disposition home or self-care (01) ==
LOC: MW.ED 22:25
DX: Z46.6 Encounter for fitting and adjustment of urinary device (principal); E78.00 Pure hypercholesterolemia, unspecified; I25.2 Old myocardial infarction; N40.0 Benign prostatic hyperplasia without lower urinary tract symptoms; F03.90 Unspecified dementia, unspecified severity, without behavioral disturbance, psychotic disturbance, mood disturbance, and anxiety; Z87.891 Personal history of nicotine dependence; Z79.82 Long term (current) use of aspirin; Z79.899 Other long term (current) drug therapy
CPT/HCPCS: 51702; 99283-25

== ENCOUNTER 2021-09-25 02:03 | Observation (INO) | payer OTHER, MEDICARE ==
[2021-09-25] MEDS ORDERED: Sodium Chloride 0.9% 10 ML Syringe FLUSH PRN (02:06)
[2021-09-25] MEDS ORDERED: Sodium Chloride 0.9% 2.5 ML Syringe FLUSH PRN (02:06)
[2021-09-25] MEDS ORDERED: Sodium Chloride 0.9% 1,000 ML IV ONE (02:10)
--- NOTE | 2021-09-25 02:11 | EDM.PDOC ---
ED HPI GENERAL MEDICAL PROBLEM - General Stated Complaint: STROKE Time Seen by Provider: 09/25/21 02:06 - History of Present Illness INITIAL COMMENTS - FREE TEXT/NARRATIVE: History of present illness: [] Patient given to me as a stroke code. Family said he could not feel his left side and he had a left facial droop. According the paramedics family said he was last normal at midnight. He arrived about 2 AM. Patient says he feels like crap. He is sneezing frequently. The family said he got up and walked into the room where they were. He grabbed his chest and he went limp and was diaphoretic. He did not pass out but he would have fallen if they had not caught him and set him down. They say it happens every once in a while and has happened in the past. He did not vomit. It did appear like he might be short of breath. They did not report any asymmetry of his neurologic exam from their point of view. I discussed resuscitation status because the patient has rather severe dementia. The son said that he does not want to be permanently on life support and they are somewhat familiar with the situation because they have had to remove life support from one of their family members at some point but at this point patient is a full code should something happen acutely. Review of systems: As per history of present illness and below otherwise all systems reviewed and negative. Past medical history: As per history of present illness and as reviewed below otherwise noncontributory. Surgical history: As per history of present illness and as reviewed below otherwise noncontributory. Social history: No reported history of drug or alcohol abuse. Family history: As per history of present illness and as reviewed below otherwise noncontributory. Physical exam: Constitutional - well developed, well-nourished and in no acute distress HEENT - normocephalic, no evidence of trauma - external nose and mouth normal - no mass in neck and no JVD - mucosae dry EYES -eyes sunken-left eye cornea opacified-, no icterus - no evidence of inflammation, injection, or drainage Respiratory - no respiratory distress, equal bilateral expansion, lungs clear to auscultation and no abnormal lung sounds Cardiovascular - Regular Rhythm with S1 and S2 appreciated and no murmur, gallop or rub. GI - abdomen soft without distension or organomegaly - normal bowel sounds - no guard or rebound Musculoskeletal no gross deformity of long bones or joints - no tenderness, swelling or edema Neurologic - Alert and oriented times four - CN II-XII grossly intact - motor sensory and coordination symmetrically normal Psychiatric - appropriate mood and affect with normal thought content Hematologic - No petechiae or purpura - mucosa appropriate color and sclera not pale - normal nail bed color and refill Integument - no rash or evidence of trauma -diminished turgor Diagnostics: [] Therapeutics: [] Impression: [] Plan: [] Definitive disposition and diagnosis as appropriate pending reevaluation and review of above. - Related Data Allergies Allergy/AdvReac Type Severity Reaction Status Date / Time No Known Allergies Allergy Verified 09/25/21 05:35 Home Meds: Home Meds Tamsulosin [Flomax] 0.4 mg PO DAILY 01/20/21 [History] Water For Irrigation,Sterile [Sterile Water for Irrigation] 1,000 ml .XX DAILY 01/20/21 [History] Alendronate [Fosamax] 70 mg PO WEEKLY 09/22/21 [History] Aspirin 81 mg PO DAILY 09/22/21 [History] Cyclobenzaprine [Flexeril] 10 mg PO DAILY 09/22/21 [History] Gabapentin [Neurontin] 300 mg PO DAILY 09/22/21 [History] Omeprazole 20 mg PO 09/22/21 [History] QUEtiapine [SEROquel] 12.5 mg PO DAILY 09/22/21 [History] atorvaSTATin [Lipitor] 10 mg PO BEDTIME 09/22/21 [History] Past Medical History HEENT History: Reports: None, Hard of Hearing, Impaired Vision, Other (See Below) Other HEENT History: wears glasses, hard of hearing bilaterally (wears hearing aides), blind in left eye Cardiovascular History: Reports: High Cholesterol, [place] Respiratory History: Reports: None Gastrointestinal History: Reports: None Genitourinary History: Reports: BPH, UTI, Recurrent Other Genitourinary History: Chronic indwelling catheter. Musculoskeletal History: Reports: Fibromyalgia Neurological History: Reports: CVA, Other (See Below) Other Neuro History: dementia Psychiatric History: Reports: Dementia Endocrine/Metabolic History: Reports: None Hematologic History: Reports: Anemia Immunologic History: Reports: None Oncologic (Cancer) History: Reports: None Dermatologic History: Reports: None - Infectious Disease History Infectious Disease History: Reports: None - Past Surgical History Head Surgeries/Procedures: Reports: None HEENT Surgical History: Reports: Cataract Surgery, Other (See Below) Other HEENT Surgeries/Procedures: left corneal transplant Cardiovascular Surgical History: Reports: None Respiratory Surgical History: Reports: None GI Surgical History: Reports: None Male Surgical History: Reports: None Endocrine Surgical History: Reports: None Neurological Surgical History: Reports: None Musculoskeletal Surgical History: Reports: None Oncologic Surgical History: Reports: None Dermatological Surgical History: Reports: None Social & Family History - Family History Family Medical History: No Pertinent Family History HEENT: Reports: None - Caffeine Use Caffeine Use: Reports: Coffee ED ROS GENERAL - Review of Systems Review Of Systems: Comprehensive ROS is negative, except as noted in HPI. ED EXAM, GENERAL - Physical Exam Exam: See Below Free Text/Narrative:: My physical exam is in the HPI #1 Interpretation EKG Interpretation Comments: EKG done 09/25/2021 at 2:23 AM shows a sinus rhythm with a heart rate of 72 PA interval 184 QT duration 492 axis -58. There are 3 PVCs resulting in ventricular bigeminy for 3 episodes.. Compared to 07/03/2019 no change except PVCs. Impression no acute injury Course - Vital Signs Last Recorded V/S: Last Vital Signs Temp 35.9 C L 09/25/21 05:11 Pulse 72 09/25/21 05:11 Resp 19 09/25/21 05:11 BP 131/58 L 09/25/21 05:11 Pulse Ox 96 09/25/21 05:11 - Orders/Labs/Meds Orders: Active Orders 24 hr Category Date Time Status CULTURE BLOOD [BC] Stat Lab 09/25/21 02:32 Received CULTURE BLOOD [BC] Stat Lab 09/25/21 03:05 Results REFLEX LACTIC ACID YES OR NO [CHEM] Routine Lab 09/25/21 03:15 Received Sodium Chloride 0.9% [Saline Flush] Med 09/25/21 02:06 Active 10 ml FLUSH ASDIRECTED PRN Sodium Chloride 0.9% [Saline Flush] Med 09/25/21 02:06 Active 2.5 ml FLUSH ASDIRECTED PRN Blood Culture x2 Reflex Set [OM.PC] Stat Oth 09/25/21 02:07 Ordered Saline Lock Insert [OM.PC] Stat Oth 09/25/21 02:06 Ordered Medication Orders Sodium Chloride (Sodium Chloride 0.9% 10 Ml Syringe) 10 ml FLUSH ASDIRECTED PRN PRN Reason: Keep Vein Open Sodium Chloride (Sodium Chloride 0.9% 2.5 Ml Syringe) 2.5 ml FLUSH ASDIRECTED PRN PRN Reason: Keep Vein Open Labs: Laboratory Tests 09/25/21 09/25/21 09/25/21 Range/Units 02:00 02:00 02:00 WBC 10.26 (4.0-11.0) K/uL RBC 3.31 L (4.50-5.90) M/uL Hgb 9.9 L (13.0-17.0) g/dL Hct 29.6 L (38.0-50.0) % MCV 89.4 (80.0-98.0) fL MCH 29.9 (27.0-32.0) pg MCHC 33.4 (31.0-37.0) g/dL RDW Std Deviation 47.6 (28.0-62.0) fl RDW Coeff of Nahed 15 (11.0-15.0) % Plt Count 248 (150-400) K/uL MPV 10.00 (7.40-12.00) fL Add Manual Diff YES Neutrophils % (Manual) 38 L (48.0-80.0) % Lymphocytes % (Manual) 51 H (16.0-40.0) % Monocytes % (Manual) 9 (0.0-15.0) % Eosinophils % (Manual) 1 (0.0-7.0) % Basophils % (Manual) 1 (0.0-1.5) % Nucleated RBC % 0.0 /100WBC Absolute Seg Neuts 3.9 (1.4-5.7) Lymphocytes # (Manual) 5.2 H (0.6-2.4) Monocytes # (Manual) 0.9 H (0.0-0.8) Eosinophils # (Manual) 0.1 (0.0-0.7) Basophils # (Manual) 0.1 (0.0-0.1) Nucleated RBCs # 0 K/uL INR 1.05 Sodium 142 (136-148) mmol/L Potassium 4.0 (3.5-5.1) mmol/L Chloride 105 (98-107) mmol/L Carbon Dioxide 25.0 (21.0-32.0) mmol/L BUN 19 H (7.0-18.0) mg/dL Creatinine 1.5 H (0.8-1.3) mg/dL Est Cr Clr Drug Dosing TNP Estimated GFR (MDRD) 45.0 ml/min Glucose 194 H (74-106) mg/dL Lactic Acid (0.4-2.0) mmol/L Calcium 8.9 (8.5-10.1) mg/dL Magnesium 2.1 (1.8-2.4) mg/dL Total Bilirubin 1.0 (0.2-1.0) mg/dL AST 26 (15-37) IU/L ALT 28 (14-63) IU/L Alkaline Phosphatase 102 (46-116) U/L Troponin I < 0.050 (0.000-0.056) ng/mL Total Protein 6.2 L (6.4-8.2) g/dL Albumin 2.4 L (3.4-5.0) g/dL Globulin 3.8 (2.6-4.0) g/dL Albumin/Globulin Ratio 0.6 L (0.9-1.6) Lipase 73 (73-393) U/L Free T4 (0.76-1.46) ng/dL Free T3 (2.18-3.98) pg/mL TSH, Ultra Sensitive 3.97 H (0.36-3.74) uIU/mL Influenza Type A RNA (NEGATIVE) Influenza Type B RNA (NEGATIVE) SARS-CoV-2 RNA ([facility]) (NEGATIVE) Blood Type Antibody Screen 09/25/21 09/25/21 09/25/21 Range/Units 02:00 02:00 02:32 WBC (4.0-11.0) K/uL RBC (4.50-5.90) M/uL Hgb (13.0-17.0) g/dL Hct (38.0-50.0) % MCV (80.0-98.0) fL MCH (27.0-32.0) pg MCHC (31.0-37.0) g/dL RDW Std Deviation (28.0-62.0) fl RDW Coeff of Nahed (11.0-15.0) % Plt Count (150-400) K/uL MPV (7.40-12.00) fL Add Manual Diff Neutrophils % (Manual) (48.0-80.0) % Lymphocytes % (Manual) (16.0-40.0) % Monocytes % (Manual) (0.0-15.0) % Eosinophils % (Manual) (0.0-7.0) % Basophils % (Manual) (0.0-1.5) % Nucleated RBC % /100WBC Absolute Seg Neuts (1.4-5.7) Lymphocytes # (Manual) (0.6-2.4) Monocytes # (Manual) (0.0-0.8) Eosinophils # (Manual) (0.0-0.7) Basophils # (Manual) (0.0-0.1) Nucleated RBCs # K/uL INR Sodium (136-148) mmol/L Potassium (3.5-5.1) mmol/L Chloride (98-107) mmol/L Carbon Dioxide (21.0-32.0) mmol/L BUN (7.0-18.0) mg/dL Creatinine (0.8-1.3) mg/dL Est Cr Clr Drug Dosing Estimated GFR (MDRD) ml/min Glucose (74-106) mg/dL Lactic Acid 2.5 H* (0.4-2.0) mmol/L Calcium (8.5-10.1) mg/dL Magnesium (1.8-2.4) mg/dL Total Bilirubin (0.2-1.0) mg/dL AST (15-37) IU/L ALT (14-63) IU/L Alkaline Phosphatase (46-116) U/L Troponin I (0.000-0.056) ng/mL Total Protein (6.4-8.2) g/dL Albumin (3.4-5.0) g/dL Globulin (2.6-4.0) g/dL Albumin/Globulin Ratio (0.9-1.6) Lipase (73-393) U/L Free T4 1.23 (0.76-1.46) ng/dL Free T3 1.58 L (2.18-3.98) pg/mL TSH, Ultra Sensitive (0.36-3.74) uIU/mL Influenza Type A RNA (NEGATIVE) Influenza Type B RNA (NEGATIVE) SARS-CoV-2 RNA ([facility]) (NEGATIVE) Blood Type O POSITIVE Antibody Screen NEGATIVE 09/25/21 Range/Units 02:35 WBC (4.0-11.0) K/uL RBC (4.50-5.90) M/uL Hgb (13.0-17.0) g/dL Hct (38.0-50.0) % MCV (80.0-98.0) fL MCH (27.0-32.0) pg MCHC (31.0-37.0) g/dL RDW Std Deviation (28.0-62.0) fl RDW Coeff of Nahed (11.0-15.0) % Plt Count (150-400) K/uL MPV (7.40-12.00) fL Add Manual Diff Neutrophils % (Manual) (48.0-80.0) % Lymphocytes % (Manual) (16.0-40.0) % Monocytes % (Manual) (0.0-15.0) % Eosinophils % (Manual) (0.0-7.0) % Basophils % (Manual) (0.0-1.5) % Nucleated RBC % /100WBC Absolute Seg Neuts (1.4-5.7) Lymphocytes # (Manual) (0.6-2.4) Monocytes # (Manual) (0.0-0.8) Eosinophils # (Manual) (0.0-0.7) Basophils # (Manual) (0.0-0.1) Nucleated RBCs # K/uL INR Sodium (136-148) mmol/L Potassium (3.5-5.1) mmol/L Chloride (98-107) mmol/L Carbon Dioxide (21.0-32.0) mmol/L BUN (7.0-18.0) mg/dL Creatinine (0.8-1.3) mg/dL Est Cr Clr Drug Dosing Estimated GFR (MDRD) ml/min Glucose (74-106) mg/dL Lactic Acid (0.4-2.0) mmol/L Calcium (8.5-10.1) mg/dL Magnesium (1.8-2.4) mg/dL Total Bilirubin (0.2-1.0) mg/dL AST (15-37) IU/L ALT (14-63) IU/L Alkaline Phosphatase (46-116) U/L Troponin I (0.000-0.056) ng/mL Total Protein (6.4-8.2) g/dL Albumin (3.4-5.0) g/dL Globulin (2.6-4.0) g/dL Albumin/Globulin Ratio (0.9-1.6) Lipase (73-393) U/L Free T4 (0.76-1.46) ng/dL Free T3 (2.18-3.98) pg/mL TSH, Ultra Sensitive (0.36-3.74) uIU/mL Influenza Type A RNA NEGATIVE (NEGATIVE) Influenza Type B RNA NEGATIVE (NEGATIVE) SARS-CoV-2 RNA ([facility]) NEGATIVE (NEGATIVE) Blood Type Antibody Screen Meds: Medications Generic Name Dose Route Start Last Admin Trade Name Freq PRN Reason Stop Dose Admin Sodium Chloride 10 ml 09/25/21 02:06 Sodium Chloride 0.9% 10 Ml Syringe FLUSH ASDIRECTED PRN Keep Vein Open Sodium Chloride 2.5 ml 09/25/21 02:06 Sodium Chloride 0.9% 2.5 Ml Syringe FLUSH ASDIRECTED PRN Keep Vein Open Discontinued Medications Generic Name Dose Route Start Last Admin Trade Name Freq PRN Reason Stop Dose Admin Sodium Chloride 1,000 mls @ 500 mls/hr 09/25/21 02:10 09/25/21 02:20 Normal Saline IV 09/25/21 04:09 500 mls/hr .Bolus ONE Administration Pantoprazole Sodium 40 mg 09/25/21 04:04 09/25/21 04:16 Pantoprazole 40 Mg/10 Ml Syringe IVPUSH 09/25/21 04:05 40 mg ONETIME ONE Administration - Re-Assessments/Exams Free Text/Narrative Re-Assessment/Exam: 09/25/21 02:39 Radiology called me and said there was no acute finding on the CT of the head. By my reading the x-ray of the chest also shows nothing terribly acute since the most recent one in 2019. 09/25/21 02:39 09/25/21 03:21 Hemoglobin 9.9 the last one being more than 2 years ago and it was 14.4. Daughter says the patient's stools are dark but not black or bloody. Rectal exam done and the exam is normal. There is soft almost liquid brown stool which is faintly heme positive on the Hemoccult test. 09/25/21 03:[address] Duval and placed in observation for telemetry monitoring and to repeat his labs after hydration tonight. 09/25/21 05:36 After hydration the patient made urine and it appears there is a UTI which also may contribute to his altered mental status. Rocephin ordered. Culture ordered.. Departure - Departure Time of Disposition: 05:37 Disposition: Refer to Observation Clinical Impression: Near syncope, UTI (urinary tract infection), Anemia, Dehydration, Altered mental status - Discharge Information Sepsis Event Note (ED) - Focused Exam Vital Signs: Vital Signs Temp Pulse Resp BP Pulse Ox 09/25/21 03:33 63 14 118/58 L 99 09/25/21 02:20 65 16 100/55 L 98 09/25/21 02:03 36.5 C 77 12 94/55 L 98 - My Orders Last 24 Hours: My Active Orders 09/25/21 02:06 Sodium Chloride 0.9% [Saline Flush] 10 ml FLUSH ASDIRECTED PRN Sodium Chloride 0.9% [Saline Flush] 2.5 ml FLUSH ASDIRECTED PRN Saline Lock Insert [OM.PC] Stat 09/25/21 02:07 Blood Culture x2 Reflex Set [OM.PC] Stat 09/25/21 02:32 CULTURE BLOOD [BC] Stat 09/25/21 03:05 CULTURE BLOOD [BC] Stat 09/25/21 03:15 REFLEX LACTIC ACID YES OR NO [CHEM] Routine - Assessment/Plan Last 24 Hours: My Active Orders 09/25/21 02:06 Sodium Chloride 0.9% [Saline Flush] 10 ml FLUSH ASDIRECTED PRN Sodium Chloride 0.9% [Saline Flush] 2.5 ml FLUSH ASDIRECTED PRN Saline Lock Insert [OM.PC] Stat 09/25/21 02:07 Blood Culture x2 Reflex Set [OM.PC] Stat 09/25/21 02:32 CULTURE BLOOD [BC] Stat 09/25/21 03:05 CULTURE BLOOD [BC] Stat 09/25/21 03:15 REFLEX LACTIC ACID YES OR NO [CHEM] Routine
--- NOTE | 2021-09-25 02:34 | CR ---
INDICATION: Left sided weakness. TECHNIQUE: Chest radiograph 1 view COMPARISON: 02/08/2021 FINDINGS: Mediastinum: The mediastinum is normal in appearance. The heart silhouette is normal in size and morphology. Mild elevation of the left hemidiaphragm is noted without change. Lung: Minimal ground-glass atelectasis is present in both lung bases with small lung volumes. No sign of pleural effusion seen. No pneumothorax is identified. Bone and Soft tissue: Unremarkable for age. IMPRESSION: 1. Minimal ground-glass atelectasis is present in both lung bases with small lung volumes. Dictated by Iglesia Bee MD @ 09/25/2021 2:32:02 AM Dictated by: Iglesia Bee MD @ 09/25/2021 02:32:05 (Electronically Signed)
--- NOTE | 2021-09-25 02:38 | CT ---
INDICATION: Left sided weakness. TECHNIQUE: CT Head without i.v. contrast. Coronal and sagittal reformats were obtained. COMPARISON: 07/03/2019 FINDINGS: CSF space: Unremarkable for age. Brain: No evidence of mass, acute infarction or hemorrhage is seen. No mass-effect or midline shift is seen. Mild diffuse cortical atrophy is noted. Moderate patchy regions of low attenuation are present in the bilateral frontal periventricular white matter, likely due to chronic microvascular ischemic changes. The brain parenchyma is otherwise normal in appearance with preservation of the damian-white matter junction. Calvarium: The visualized paranasal sinuses are well aerated. The mastoid air cells are clear. Scleral banding of bilateral globes are noted. The patient is status post bilateral cataract removal. The calvarium has a thickened heterogeneous mottled appearance, unchanged from prior examination. IMPRESSION: 1. No evidence of acute infarction, intracranial hemorrhage, or mass-effect seen. The findings were discussed with Dr. Limon at 2:36 AM. Dictated by Iglesia Bee MD @ 09/25/2021 2:34:32 AM Please note that all CT scans at this facility use dose modulation, iterative reconstruction, and/or weight-based dosing when appropriate to reduce radiation dose to as low as reasonably achievable. Dictated by: Iglesia Bee MD @ 09/25/2021 02:36:58 (Electronically Signed)
[2021-09-25 02:43] LABS: BLOOD UREA NITROGEN,BUN 19 mg/dL (7.0-18.0); CHLORIDE,CL 105 mmol/L (98-107); GLUCOSE RANDOM 194 mg/dL (74-106); LIPASE 73 U/L (73-393); SODIUM,NA 142 mmol/L (136-148)
[2021-09-25 03:19] LABS: CORONAVIRUS COVID-19 NAA NEGATIVE (NEGATIVE); INFLUENZA A NAA NEGATIVE (NEGATIVE); INFLUENZA B NAA NEGATIVE (NEGATIVE)
[2021-09-25] MEDS ORDERED: Pantoprazole 40 MG/10 ML Syringe IVPUSH ONE (04:04)
[2021-09-25] MEDS ORDERED: cefTRIAXone 1 GM in Premix Bag 1 BAG IV ONE (05:36)
[2021-09-25] MEDS ORDERED: Alendronate 70 MG Tab PO SCH (08:15)
[2021-09-25] MEDS: QUEtiapine 25 MG Tab PO SCH (09:03)
[2021-09-25] MEDS: Aspirin 81 MG Tab.Chew PO SCH (09:03)
[2021-09-25] MEDS: Enoxaparin 40 MG/0.4 ML Syringe SUBCUT SCH (09:03)
[2021-09-25] MEDS: Pantoprazole 40 MG/10 ML Syringe IVPUSH SCH (09:04)
--- NOTE | 2021-09-25 09:25 | PCM.HP.2 ---
H&P History of Present Illness - General Date of Service: 09/25/21 Admit Problem/Dx: Admission Diagnosis/Problem Admission Diagnosis/Problem Near syncope - History of Present Illness Initial Comments - Free Text/Narative: The patient is a 81-year-old male, on day 1 of service, with a significant past medical history of bilateral hearing impairment with hearing aids, hyperlipidemia, myocardial infarction, BPH, dementia, and fibromyalgia, who was admitted to the medical floor due to a near syncopal episode and UTI. The patient is a poor historian as a result I spoke to his son Marifer over the phone today. He revealed that his father has had episodes in the past where he becomes incoherent, has dribbling speech, and becomes weak with respect to ambulation. These episodes last anywhere from a few minutes to an hour but eventually go away and the patient returns to his baseline. The son explains the last night the father became confused, diaphoretic and limp and this episode lasted over an hour which was concerning to the entire family. As result the father was brought by ambulance to the emergency department to have investigations done. In regards to the patient's social history he used to smoke for 30 years a full pack, but quit 25 years ago. He does not consume any alcohol or use any recreational drugs. He has no known drug allergies. The patient denies any chest pain, palpitations, abdominal pain, dizziness, nausea, vomiting, or any issues with defecation upon interview this morning. CBC, white blood cell count is 10.26, hemoglobin is 9.9, hematocrit is 29.6, platelet count is 248. CMP, sodium is 142, potassium is 4.0, chloride is 105, carbon dioxide 25, BUN is 19, creatinine is 1.5. Troponin levels were normal. TSH is 3.97 UA showed high leukocyte esterase Chest x-ray showed minimal ground glass atelectasis at the bilateral lung bases CT showed no new abnormalities or infarcts, attenuation in the bilateral frontal periventricular white matter was seen depicting chronic microvascular ischemic changes In the emergency department, the patient had a EKG done which was normal sinus rhythm, had 2 blood cultures drawn, a lactic acid which was 2.5, and normal s elías bolus of 1000 mL, pantoprazole 40 mg per IV route was given, and the above tests were also completed. - Related Data Allergies/Adverse Reactions: Allergies Allergy/AdvReac Type Severity Reaction Status Date / Time No Known Allergies Allergy Verified 09/25/21 05:35 Home Medications: Home Meds Cyclobenzaprine [Flexeril] 10 mg PO BEDTIME 09/22/21 [History] Gabapentin [Neurontin] 300 mg PO TID 09/22/21 [History] Omeprazole 20 mg PO Q24H 09/22/21 [History] atorvaSTATin [Lipitor] 20 mg PO BEDTIME 09/22/21 [History] Alendronate Sodium 70 mg PO WEEKLY 09/25/21 [History] Ascorbic Acid 1,000 mg PO Q24H 09/25/21 [History] Aspirin [Aspirin EC] 81 mg PO Q24H 09/25/21 [History] Fish Oil/[place]-3 Fatty Acids [Fish Oil 1,000 MG] 1 gm PO QAM 09/25/21 [History] Vitamin B Complex 1 cap PO QAM 09/25/21 [History] Past Medical History HEENT History: Reports: None, Hard of Hearing, Impaired Vision, Other (See Below) Other HEENT History: wears glasses, hard of hearing bilaterally (wears hearing aides), blind in left eye Cardiovascular History: Reports: High Cholesterol, ID Respiratory History: Reports: None Gastrointestinal History: Reports: None Genitourinary History: Reports: BPH, UTI, Recurrent Other Genitourinary History: Chronic indwelling catheter. Musculoskeletal History: Reports: Fibromyalgia Neurological History: Reports: CVA, Other (See Below) Other Neuro History: dementia Psychiatric History: Reports: Dementia Endocrine/Metabolic History: Reports: None Hematologic History: Reports: Anemia Immunologic History: Reports: None Oncologic (Cancer) History: Reports: None Dermatologic History: Reports: None - Infectious Disease History Infectious Disease History: Reports: None - Past Surgical History Head Surgeries/Procedures: Reports: None HEENT Surgical History: Reports: Cataract Surgery, Other (See Below) Other HEENT Surgeries/Procedures: left corneal transplant Cardiovascular Surgical History: Reports: None Respiratory Surgical History: Reports: None GI Surgical History: Reports: None Male Surgical History: Reports: None Endocrine Surgical History: Reports: None Neurological Surgical History: Reports: None Musculoskeletal Surgical History: Reports: None Oncologic Surgical History: Reports: None Dermatological Surgical History: Reports: None Social & Family History - Family History Family Medical History: No Pertinent Family History HEENT: Reports: None - Tobacco Use Tobacco Use Status *Q: Unknown Ever Used Tobacco Second Hand Smoke Exposure: No - Caffeine Use Caffeine Use: Reports: None - Recreational Drug Use Recreational Drug Use: No H&P Review of Systems - Review of Systems: Review Of Systems: See Below General: Reports: Other (The patient is a poor historian, majority of the history was given by his son Marifer) Exam - Exam Exam: See Below - Vital Signs Vital Signs: Last Vital Signs Temp 96.6 F L 09/25/21 05:11 Pulse 72 09/25/21 05:11 Resp 19 09/25/21 05:11 BP 131/58 L 09/25/21 05:11 Pulse Ox 96 09/25/21 05:11 Weight: 141 lb 3.2 oz - Exam General: Alert, Cooperative, Other (Patient is slightly demented). No: Oriented HEENT: Other (Dry mucous membranes) Neck: Trachea Midline Lungs: Clear to Auscultation, Normal Respiratory Effort Cardiovascular: Regular Rate, Regular Rhythm GI/Abdominal Exam: Normal Bowel Sounds, Soft, Non-Tender Neurological: Cranial Nerves Intact, Sensation Intact. No: Strength Equal Bilateral Neuro Extensive - Mental Status: Alert. No: Oriented x3 - Patient Data Lab Results Last 24 hrs: Laboratory Results - last 24 hr 09/25/21 09/25/21 09/25/21 Range/Units 02:00 02:00 02:00 WBC 10.26 (4.0-11.0) K/uL RBC 3.31 L (4.50-5.90) M/uL Hgb 9.9 L (13.0-17.0) g/dL Hct 29.6 L (38.0-50.0) % MCV 89.4 (80.0-98.0) fL MCH 29.9 (27.0-32.0) pg MCHC 33.4 (31.0-37.0) g/dL RDW Std Deviation 47.6 (28.0-62.0) fl RDW Coeff of Nahed 15 (11.0-15.0) % Plt Count 248 (150-400) K/uL MPV 10.00 (7.40-12.00) fL Add Manual Diff YES Neutrophils % (Manual) 38 L (48.0-80.0) % Lymphocytes % (Manual) 51 H (16.0-40.0) % Monocytes % (Manual) 9 (0.0-15.0) % Eosinophils % (Manual) 1 (0.0-7.0) % Basophils % (Manual) 1 (0.0-1.5) % Nucleated RBC % 0.0 /100WBC Absolute Seg Neuts 3.9 (1.4-5.7) Lymphocytes # (Manual) 5.2 H (0.6-2.4) Monocytes # (Manual) 0.9 H (0.0-0.8) Eosinophils # (Manual) 0.1 (0.0-0.7) Basophils # (Manual) 0.1 (0.0-0.1) Nucleated RBCs # 0 K/uL INR 1.05 Sodium 142 (136-148) mmol/L Potassium 4.0 (3.5-5.1) mmol/L Chloride 105 (98-107) mmol/L Carbon Dioxide 25.0 (21.0-32.0) mmol/L BUN 19 H (7.0-18.0) mg/dL Creatinine 1.5 H (0.8-1.3) mg/dL Est Cr Clr Drug Dosing TNP Estimated GFR (MDRD) 45.0 ml/min Glucose 194 H (74-106) mg/dL Lactic Acid (0.4-2.0) mmol/L Calcium 8.9 (8.5-10.1) mg/dL Magnesium 2.1 (1.8-2.4) mg/dL Total Bilirubin 1.0 (0.2-1.0) mg/dL AST 26 (15-37) IU/L ALT 28 (14-63) IU/L Alkaline Phosphatase 102 (46-116) U/L Troponin I < 0.050 (0.000-0.056) ng/mL Total Protein 6.2 L (6.4-8.2) g/dL Albumin 2.4 L (3.4-5.0) g/dL Globulin 3.8 (2.6-4.0) g/dL Albumin/Globulin Ratio 0.6 L (0.9-1.6) Lipase 73 (73-393) U/L Free T4 (0.76-1.46) ng/dL Free T3 (2.18-3.98) pg/mL TSH, Ultra Sensitive 3.97 H (0.36-3.74) uIU/mL Urine Color Urine Appearance Urine pH (5.0-8.0) Ur Specific [place] (1.001-1.035) Urine Protein (NEGATIVE) mg/dL Urine Glucose (UA) (NEGATIVE) mg/dL Urine Ketones (NEGATIVE) mg/dL Urine Occult Blood (NEGATIVE) Urine Nitrite (NEGATIVE) Urine Bilirubin (NEGATIVE) Urine Urobilinogen (<2.0) EU/dL Ur Leukocyte Esterase (NEGATIVE) Urine RBC (0-2/HPF) Urine WBC (0-5/HPF) Ur Epithelial Cells (NONE-FEW) Urine Bacteria (NEGATIVE) Influenza Type A RNA (NEGATIVE) Influenza Type B RNA (NEGATIVE) SARS-CoV-2 RNA (WALTER) (NEGATIVE) Blood Type Antibody Screen 09/25/21 09/25/21 09/25/21 Range/Units 02:00 02:00 02:32 WBC (4.0-11.0) K/uL RBC (4.50-5.90) M/uL Hgb (13.0-17.0) g/dL Hct (38.0-50.0) % MCV (80.0-98.0) fL MCH (27.0-32.0) pg MCHC (31.0-37.0) g/dL RDW Std Deviation (28.0-62.0) fl RDW Coeff of Nahed (11.0-15.0) % Plt Count (150-400) K/uL MPV (7.40-12.00) fL Add Manual Diff Neutrophils % (Manual) (48.0-80.0) % Lymphocytes % (Manual) (16.0-40.0) % Monocytes % (Manual) (0.0-15.0) % Eosinophils % (Manual) (0.0-7.0) % Basophils % (Manual) (0.0-1.5) % Nucleated RBC % /100WBC Absolute Seg Neuts (1.4-5.7) Lymphocytes # (Manual) (0.6-2.4) Monocytes # (Manual) (0.0-0.8) Eosinophils # (Manual) (0.0-0.7) Basophils # (Manual) (0.0-0.1) Nucleated RBCs # K/uL INR Sodium (136-148) mmol/L Potassium (3.5-5.1) mmol/L Chloride (98-107) mmol/L Carbon Dioxide (21.0-32.0) mmol/L BUN (7.0-18.0) mg/dL Creatinine (0.8-1.3) mg/dL Est Cr Clr Drug Dosing Estimated GFR (MDRD) ml/min Glucose (74-106) mg/dL Lactic Acid 2.5 H* (0.4-2.0) mmol/L Calcium (8.5-10.1) mg/dL Magnesium (1.8-2.4) mg/dL Total Bilirubin (0.2-1.0) mg/dL AST (15-37) IU/L ALT (14-63) IU/L Alkaline Phosphatase (46-116) U/L Troponin I (0.000-0.056) ng/mL Total Protein (6.4-8.2) g/dL Albumin (3.4-5.0) g/dL Globulin (2.6-4.0) g/dL Albumin/Globulin Ratio (0.9-1.6) Lipase (73-393) U/L Free T4 1.23 (0.76-1.46) ng/dL Free T3 1.58 L (2.18-3.98) pg/mL TSH, Ultra Sensitive (0.36-3.74) uIU/mL Urine Color Urine Appearance Urine pH (5.0-8.0) Ur Specific [place] (1.001-1.035) Urine Protein (NEGATIVE) mg/dL Urine Glucose (UA) (NEGATIVE) mg/dL Urine Ketones (NEGATIVE) mg/dL Urine Occult Blood (NEGATIVE) Urine Nitrite (NEGATIVE) Urine Bilirubin (NEGATIVE) Urine Urobilinogen (<2.0) EU/dL Ur Leukocyte Esterase (NEGATIVE) Urine RBC (0-2/HPF) Urine WBC (0-5/HPF) Ur Epithelial Cells (NONE-FEW) Urine Bacteria (NEGATIVE) Influenza Type A RNA (NEGATIVE) Influenza Type B RNA (NEGATIVE) SARS-CoV-2 RNA (W[place]TER) (NEGATIVE) Blood Type O POSITIVE Antibody Screen NEGATIVE 09/25/21 09/25/21 09/25/21 Range/Units 02:35 04:55 07:25 WBC (4.0-11.0) K/uL RBC (4.50-5.90) M/uL Hgb (13.0-17.0) g/dL Hct (38.0-50.0) % MCV (80.0-98.0) fL MCH (27.0-32.0) pg MCHC (31.0-37.0) g/dL RDW Std Deviation (28.0-62.0) fl RDW Coeff of Nahed (11.0-15.0) % Plt Count (150-400) K/uL MPV (7.40-12.00) fL Add Manual Diff Neutrophils % (Manual) (48.0-80.0) % Lymphocytes % (Manual) (16.0-40.0) % Monocytes % (Manual) (0.0-15.0) % Eosinophils % (Manual) (0.0-7.0) % Basophils % (Manual) (0.0-1.5) % Nucleated RBC % /100WBC Absolute Seg Neuts (1.4-5.7) Lymphocytes # (Manual) (0.6-2.4) Monocytes # (Manual) (0.0-0.8) Eosinophils # (Manual) (0.0-0.7) Basophils # (Manual) (0.0-0.1) Nucleated RBCs # K/uL INR Sodium (136-148) mmol/L Potassium (3.5-5.1) mmol/L Chloride (98-107) mmol/L Carbon Dioxide (21.0-32.0) mmol/L BUN (7.0-18.0) mg/dL Creatinine (0.8-1.3) mg/dL Est Cr Clr Drug Dosing Estimated GFR (MDRD) ml/min Glucose (74-106) mg/dL Lactic Acid 0.5 (0.4-2.0) mmol/L Calcium (8.5-10.1) mg/dL Magnesium (1.8-2.4) mg/dL Total Bilirubin (0.2-1.0) mg/dL AST (15-37) IU/L ALT (14-63) IU/L Alkaline Phosphatase (46-116) U/L Troponin I (0.000-0.056) ng/mL Total Protein (6.4-8.2) g/dL Albumin (3.4-5.0) g/dL Globulin (2.6-4.0) g/dL Albumin/Globulin Ratio (0.9-1.6) Lipase (73-393) U/L Free T4 (0.76-1.46) ng/dL Free T3 (2.18-3.98) pg/mL TSH, Ultra Sensitive (0.36-3.74) uIU/mL Urine Color YELLOW Urine Appearance SLT CLOUDY Urine pH 7.5 (5.0-8.0) Ur Specific [place] 1.020 (1.001-1.035) Urine Protein TRACE H (NEGATIVE) mg/dL Urine Glucose (UA) NEGATIVE (NEGATIVE) mg/dL Urine Ketones NEGATIVE (NEGATIVE) mg/dL Urine Occult Blood NEGATIVE (NEGATIVE) Urine Nitrite POSITIVE H (NEGATIVE) Urine Bilirubin NEGATIVE (NEGATIVE) Urine Urobilinogen 2.0 H (<2.0) EU/dL Ur Leukocyte Esterase LARGE H (NEGATIVE) Urine RBC 0-2 (0-2/HPF) Urine WBC 10-12 (0-5/HPF) Ur Epithelial Cells RARE (NONE-FEW) Urine Bacteria 1+ H (NEGATIVE) Influenza Type A RNA NEGATIVE (NEGATIVE) Influenza Type B RNA NEGATIVE (NEGATIVE) SARS-CoV-2 RNA (WALTER) NEGATIVE (NEGATIVE) Blood Type Antibody Screen Result Diagrams: 09/25/21 02:00 09/25/21 02:00 Kyaw Results Last 24 hrs: Microbiology 09/25/21 03:05 Anaerobic Blood Culture - Final Blood - Venous - Lab Draw Sepsis Event Note - Evaluation Sepsis Screening Result: No Definite Risk - Focused Exam Vital Signs: Vital Signs Temp Pulse Resp BP Pulse Ox 09/25/21 05:11 96.6 F L 72 19 131/58 L 96 09/25/21 04:16 65 14 127/65 96 09/25/21 03:33 63 14 118/58 L 99 09/25/21 02:20 65 16 100/55 L 98 09/25/21 02:03 97.7 F 77 12 94/55 L 98 - Problem List (1) Near syncope SNOMED Code(s): 561900679 ICD Code: R55 - SYNCOPE AND COLLAPSE Status: Acute Current Visit: Yes (2) TIA (transient ischemic attack) SNOMED Code(s): 025017321 ICD Code: G45.9 - TRANSIENT CEREBRAL ISCHEMIC ATTACK, UNSPECIFIED Status: Acute Current Visit: Yes (3) Altered mental status SNOMED Code(s): 997310559 ICD Code: R41.82 - ALTERED MENTAL STATUS, UNSPECIFIED Status: Acute Current Visit: Yes (4) UTI (urinary tract infection) SNOMED Code(s): 30147703 ICD Code: N39.0 - URINARY TRACT INFECTION, SITE NOT SPECIFIED Status: Acute Current Visit: Yes Problem List Initiated/Reviewed/Updated: Yes Orders Last 24hrs: Active Orders 24 hr Category Date Time Status Admission Status [Patient Status] [ADT] Stat ADT 09/25/21 03:47 Active Telemetry Monitoring [Cardiac Monitoring] [RC] . Care 09/25/21 04:11 Active DIRECTED CBC WITH AUTO DIFF [HEME] AM Lab 09/26/21 05:11 Ordered CBC WITH AUTO DIFF [HEME] AM Lab 09/27/21 05:11 Ordered CBC WITH AUTO DIFF [HEME] AM Lab 09/28/21 05:11 Ordered CBC WITH AUTO DIFF [HEME] AM Lab 09/29/21 05:11 Ordered CMP [COMPREHENSIVE METABOLIC PN,CMP] [CHEM] AM Lab 09/26/21 05:11 Ordered CMP [COMPREHENSIVE METABOLIC PN,CMP] [CHEM] AM Lab 09/27/21 05:11 Ordered CMP [COMPREHENSIVE METABOLIC PN,CMP] [CHEM] AM Lab 09/28/21 05:11 Ordered CMP [COMPREHENSIVE METABOLIC PN,CMP] [CHEM] AM Lab 09/29/21 05:11 Ordered CULTURE BLOOD [BC] Stat Lab 09/25/21 02:32 Received CULTURE BLOOD [BC] Stat Lab 09/25/21 03:05 Results CULTURE URINE [MREF] Stat Lab 09/25/21 04:55 Received Alendronate [Fosamax] Med 09/25/21 08:15 Pending 70 mg PO .WEEKLY Aspirin Med 09/25/21 09:00 Active 81 mg PO DAILY Enoxaparin [Lovenox] Med 09/25/21 08:15 Active 40 mg SUBCUT Q24H Pantoprazole [ProTONIX] Med 09/25/21 09:00 Active 40 mg IVPUSH DAILY QUEtiapine [SEROqueL] Med 09/25/21 09:00 Active 12.5 mg PO DAILY Sodium Chloride 0.9% [Saline Flush] Med 09/25/21 02:06 Active 10 ml FLUSH ASDIRECTED PRN Sodium Chloride 0.9% [Saline Flush] Med 09/25/21 02:06 Active 2.5 ml FLUSH ASDIRECTED PRN atorvaSTATin [Lipitor] Med 09/25/21 21:00 Active 10 mg PO BEDTIME Blood Culture x2 Reflex Set [OM.PC] Stat Ot 09/25/21 02:07 Ordered Saline Lock Insert [OM.PC] Stat Ot 09/25/21 02:06 Ordered Code Status [Resuscitation Status] Routine Resus Stat 09/25/21 07:59 Ordered Medication Orders Alendronate Sodium (Alendronate 70 Mg Tab) 70 mg PO .WEEKLY ISABELLA Aspirin (Aspirin 81 Mg Tab.Chew) 81 mg PO DAILY [facility] Last Admin: 09/25/21 09:03 Dose: 81 mg Documented by: DANIEL Atorvastatin Calcium (Atorvastatin 20 Mg Tab) 10 mg PO BEDTIME ISABELLA Enoxaparin Sodium (Enoxaparin 40 Mg/0.4 Ml Syringe) 40 mg SUBCUT Q24H [facility] Last Admin: 09/25/21 09:03 Dose: 40 mg Documented by: DANIEL Pantoprazole Sodium (Pantoprazole 40 Mg/10 Ml Syringe) 40 mg IVPUSH DAILY [facility] Last Admin: 09/25/21 09:04 Dose: 40 mg Documented by: DANIEL Quetiapine Fumarate (Quetiapine 25 Mg Tab) 12.5 mg PO DAILY [facility] Last Admin: 09/25/21 09:03 Dose: 12.5 mg Documented by: DANIEL Sodium Chloride (Sodium Chloride 0.9% 10 Ml Syringe) 10 ml FLUSH ASDIRECTED PRN PRN Reason: Keep Vein Open Sodium Chloride (Sodium Chloride 0.9% 2.5 Ml Syringe) 2.5 ml FLUSH ASDIRECTED PRN PRN Reason: Keep Vein Open Assessment/Plan Comment:: Admit the patient to the medical floor, vitals per unit routine, activity up ad nan., the patient is full code, regular diet, DVT prophylaxis with Lovenox 40 mg subcutaneously once a day, GI prophylaxis with pantoprazole 40 mg once a day 1. Near syncope due to TIA versus dehydration -The patient has been started on aspirin 81 mg once daily -We will continue the patient's home atorvastatin dosage -The patient is on a monitor tech/telemetry -Daily CMP to check for dehydration 2. Urinary tract infection -The patient has been started on Rocephin 1 g per IV route every 24 hours -Monitor patient's urine leg bag for change in color/consistency of urine -Monitor daily CBC for infection status 3. Past medical history of osteoporosis/psychosis -Continue home alendronate and quetiapine
[2021-09-25] MEDS ORDERED: atorvaSTATin 20 MG Tab PO SCH (21:00)
[2021-09-26] MEDS ORDERED: cefTRIAXone 1 GM in Premix Bag 1 BAG IV SCH (05:30)
[2021-09-26 07:45] LABS: BLOOD UREA NITROGEN,BUN 21 mg/dL (7.0-18.0); CARBON DIOXIDE,CO2 25.8 mmol/L (21.0-32.0); CHLORIDE,CL 105 mmol/L (98-107); GLUCOSE RANDOM 103 mg/dL (74-106); POTASSIUM,K 4.3 mmol/L (3.5-5.1); SODIUM,NA 140 mmol/L (136-148)
[2021-09-26] MEDS: Enoxaparin 40 MG/0.4 ML Syringe SUBCUT SCH (08:41)
[2021-09-26] MEDS: Aspirin 81 MG Tab.Chew PO SCH (08:41)
[2021-09-26] MEDS: QUEtiapine 25 MG Tab PO SCH (08:42)
[2021-09-26] MEDS: Pantoprazole 40 MG/10 ML Syringe IVPUSH SCH (08:42)
--- NOTE | 2021-09-26 13:47 | PCM.DCSUM1 ---
Discharge Summary - Hospital Course Free Text/Narrative:: The patient is a 81-year-old male, on day 2 of service, with a significant past medical history of bilateral hearing impairment with hearing aids, hyperlipidemia, myocardial infarction, BPH, dementia, and fibromyalgia, who was admitted to the medical floor due to a near syncopal episode and UTI. During the patient's hospital stay for his near syncopal episodes he was placed on telemetry which displayed sinus rhythm, occasional sinus bradycardia and sinus tachycardia, and a bundle branch block. When the patient was interviewed he admitted to no chest pain or palpitations. He states that he feels much better and would be able to go home. His family was contacted who revealed that they would arrange for his care in regards to activities of daily living and follow-up appointments. In regards to the patient's urinary tract infection, while in hospital he was treated with Rocephin 1 g per IV route every 24 hours. Upon discharge he will be prescribed oral cefdinir 300 mg to be taken 3 times a day for 5-day course. In regards to the patient's past medical history of osteoporosis and psychosis, his family has been advised to make sure that he is compliant with his medications and to take them at scheduled times. They have also been advised to return the patient to the hospital if he has increasing syncopal episodes, chest pain, and/or palpitations. Lastly, the the family has been counseled to take the patient to his primary care provider for a follow-up appointment in 1 to 2 weeks time. The patient is now back at his baseline and can be discharged home. - Discharge Data Discharge Date: 09/26/21 Discharge Disposition: Home, Self-Care 01 Condition: Stable - Referral to Home Health Primary Care Physician: Mohan Edmonds NP - Discharge Diagnosis/Problem(s) (1) Near syncope SNOMED Code(s): 655573789 ICD Code: R55 - SYNCOPE AND COLLAPSE Status: Acute Current Visit: Yes (2) TIA (transient ischemic attack) SNOMED Code(s): 865866117 ICD Code: G45.9 - TRANSIENT CEREBRAL ISCHEMIC ATTACK, UNSPECIFIED Status: Acute Current Visit: Yes (3) Altered mental status SNOMED Code(s): 164619516 ICD Code: R41.82 - ALTERED MENTAL STATUS, UNSPECIFIED Status: Acute Current Visit: Yes (4) UTI (urinary tract infection) SNOMED Code(s): 61417104 ICD Code: N39.0 - URINARY TRACT INFECTION, SITE NOT SPECIFIED Status: Acute Current Visit: Yes - Patient Instructions Diet: Regular Diet as Tolerated Activity: As Tolerated Showering/Bathing: May Shower Other/Special Instructions: -Return to the hospital if you experience slurred speech, change in voice or vision, syncope, chest pain, palpitations. -Take your medication at scheduled times. -Follow-up with your PCP - Discharge Plan Prescriptions/Med Rec: Cefdinir 300 mg PO TID 5 Days #15 capsule Home Medications: Home Meds Cyclobenzaprine [Flexeril] 10 mg PO BEDTIME 09/22/21 [History] Gabapentin [Neurontin] 300 mg PO TID 09/22/21 [History] Omeprazole 20 mg PO Q24H 09/22/21 [History] atorvaSTATin [Lipitor] 20 mg PO BEDTIME 09/22/21 [History] Alendronate Sodium 70 mg PO WEEKLY 09/25/21 [History] Ascorbic Acid 1,000 mg PO Q24H 09/25/21 [History] Aspirin [Aspirin EC] 81 mg PO Q24H 09/25/21 [History] Fish Oil/[place]-3 Fatty Acids [Fish Oil 1,000 MG] 1 gm PO QAM 09/25/21 [History] Vitamin B Complex 1 cap PO QAM 09/25/21 [History] Cefdinir 300 mg PO TID 5 Days #15 capsule 09/26/21 [Rx] Patient Handouts: Cefdinir Capsules, Anemia, Urinary Tract Infection, Adult, [id number], Near-Syncope, Hjld-um-Camy, Dehydration, Elderly, [id number] Referrals: Mohan Edmonds BEAN WEIGHER [Primary Care Provider] - 10/02/21 10:30 am - Discharge Summary/Plan Comment DC Time >30 min.: Yes Total # of Minutes for Discharge Time: 35 minutes - Review of Systems General: Reports: Weakness. Denies: Fever, Fatigue HEENT: Denies: Headaches, Visual Changes Pulmonary: Denies: Shortness of Breath, Cough Cardiovascular: Denies: Chest Pain, Palpitations Gastrointestinal: Denies: Abdominal Pain, Nausea, Vomiting Genitourinary: Denies: Dysuria, Frequency, Burning Neurological: Denies: Confusion - Patient Data Vitals - Most Recent: Last Vital Signs Temp 98.5 F 09/26/21 12:00 Pulse 86 09/26/21 12:00 Resp 17 09/26/21 12:00 BP 113/49 L 09/26/21 12:00 Pulse Ox 95 09/26/21 12:00 Weight - Most Recent: 139 lb 14.4 oz I&O - Last 24 hours: Intake & Output 09/25/21 09/26/21 09/26/21 22:59 06:59 14:59 Intake Total 240 240 Output Total 400 250 Balance -160 -10 Lab Results - Last 24 hrs: Laboratory Results - last 24 hr 09/26/21 09/26/21 Range/Units 05:27 05:27 WBC 6.05 (4.0-11.0) K/uL RBC 3.47 L (4.50-5.90) M/uL Hgb 10.3 L (13.0-17.0) g/dL Hct 30.7 L (38.0-50.0) % MCV 88.5 (80.0-98.0) fL MCH 29.7 (27.0-32.0) pg MCHC 33.6 (31.0-37.0) g/dL RDW Std Deviation 46.7 (28.0-62.0) fl RDW Coeff of Nahed 15 (11.0-15.0) % Plt Count 252 (150-400) K/uL MPV 10.50 (7.40-12.00) fL Neut % (Auto) 66.9 (48.0-80.0) % Lymph % (Auto) 19.2 (16.0-40.0) % [place] % (Auto) 10.6 (0.0-15.0) % Eos % (Auto) 3.1 (0.0-7.0) % Baso % (Auto) 0.2 (0.0-1.5) % Neut # (Auto) 4.1 (1.4-5.7) K/uL Lymph # (Auto) 1.2 (0.6-2.4) K/uL [place] # (Auto) 0.6 (0.0-0.8) K/uL Eos # (Auto) 0.2 (0.0-0.7) K/uL Baso # (Auto) 0.0 (0.0-0.1) K/uL Nucleated RBC % 0.0 /100WBC Nucleated RBCs # 0 K/uL Sodium 140 (136-148) mmol/L Potassium 4.3 (3.5-5.1) mmol/L Chloride 105 (98-107) mmol/L Carbon Dioxide 25.8 (21.0-32.0) mmol/L BUN 21 H (7.0-18.0) mg/dL Creatinine 1.0 (0.8-1.3) mg/dL Est Cr Clr Drug Dosing TNP Estimated GFR (MDRD) > 60.0 ml/min Glucose 103 (74-106) mg/dL Calcium 9.0 (8.5-10.1) mg/dL Total Bilirubin 0.6 (0.2-1.0) mg/dL AST 25 (15-37) IU/L ALT 23 (14-63) IU/L Alkaline Phosphatase 106 (46-116) U/L Total Protein 6.1 L (6.4-8.2) g/dL Albumin 2.6 L (3.4-5.0) g/dL Globulin 3.5 (2.6-4.0) g/dL Albumin/Globulin Ratio 0.7 L (0.9-1.6) NESTOR Results - Last 24 hrs: Microbiology 09/25/21 03:05 Aerobic Blood Culture - Preliminary Blood - Venous - Lab Draw NO GROWTH AFTER 1 DAY Anaerobic Blood Culture - Final 09/25/21 02:32 Aerobic Blood Culture - Preliminary Blood - Venous NO GROWTH AFTER 1 DAY Anaerobic Blood Culture - Preliminary NO GROWTH AFTER 1 DAY Med Orders - Current: Current Medications Aspirin (Aspirin 81 Mg Tab.Chew) 81 mg PO DAILY [facility] Last Admin: 09/26/21 08:41 Dose: 81 mg Documented by: Atorvastatin Calcium (Atorvastatin 20 Mg Tab) 20 mg PO BEDTIME [facility] Enoxaparin Sodium (Enoxaparin 40 Mg/0.4 Ml Syringe) 40 mg SUBCUT Q24H [facility] Last Admin: 09/26/21 08:41 Dose: 40 mg Documented by: Ceftriaxone Sodium/Dextrose 1 (gm/ Premix) 50 mls @ 100 mls/hr IV Q24H [facility] Last Admin: 09/26/21 04:45 Dose: 100 mls/hr Documented by: Pantoprazole Sodium (Pantoprazole 40 Mg/10 Ml Syringe) 40 mg IVPUSH DAILY [facility] Last Admin: 09/26/21 08:42 Dose: 40 mg Documented by: Quetiapine Fumarate (Quetiapine 25 Mg Tab) 12.5 mg PO DAILY [facility] Last Admin: 09/26/21 08:42 Dose: 12.5 mg Documented by: Sodium Chloride (Sodium Chloride 0.9% 10 Ml Syringe) 10 ml FLUSH ASDIRECTED PRN PRN Reason: Keep Vein Open Sodium Chloride (Sodium Chloride 0.9% 2.5 Ml Syringe) 2.5 ml FLUSH ASDIRECTED PRN PRN Reason: Keep Vein Open Discontinued Medications Atorvastatin Calcium (Atorvastatin 20 Mg Tab) 10 mg PO BEDTIME [facility] Last Admin: 09/25/21 20:51 Dose: 10 mg Documented by: Sodium Chloride (Normal Saline) 1,000 mls @ 500 mls/hr IV .Bolus ONE Stop: 09/25/21 04:09 Last Admin: 09/25/21 02:20 Dose: 500 mls/hr Documented by: Ceftriaxone Sodium/Dextrose 1 (gm/ Premix) 50 mls @ 100 mls/hr IV ONETIME ONE Stop: 09/25/21 06:05 Last Admin: 09/25/21 05:57 Dose: 100 mls/hr Documented by: Pantoprazole Sodium (Pantoprazole 40 Mg/10 Ml Syringe) 40 mg IVPUSH ONETIME ONE Stop: 09/25/21 04:05 Last Admin: 09/25/21 04:16 Dose: 40 mg Documented by: - Exam General: Reports: Alert, Cooperative, No Acute Distress HEENT: Reports: Mucous Membr. Moist/[place] Neck: Reports: Trachea Midline Lungs: Reports: Clear to Auscultation, Normal Respiratory Effort Cardiovascular: Reports: Regular Rate, Regular Rhythm GI/Abdominal Exam: Normal Bowel Sounds, Soft, Non-Tender Neurological: Reports: No New Focal Deficit, Normal Speech, Sensation Intact
[2021-09-26] MEDS ORDERED: atorvaSTATin 20 MG Tab PO SCH (21:00)
== END 2021-09-26 13:46 | disposition home or self-care (01) ==
LOC: MW.ED 02:03 → MW.MS 03:44
PROVIDERS: ADMIT Internal Medicine; ATTEND Internal Medicine
DX: R55 Syncope and collapse (principal); I25.2 Old myocardial infarction; N40.0 Benign prostatic hyperplasia without lower urinary tract symptoms; N39.0 Urinary tract infection, site not specified; E78.00 Pure hypercholesterolemia, unspecified; Z20.822 Contact with and (suspected) exposure to COVID-19; Z87.891 Personal history of nicotine dependence; Z79.899 Other long term (current) drug therapy; Z79.82 Long term (current) use of aspirin
CPT/HCPCS: 0240U; 36415; 70450; 71045; 80053; 81001; 83605; 83690; 83735; 84439; 84443; 84481; 84484; 85025; 85610; 86850; 86900; 86901; 87040; 87086; 93005; 96365; 96372; 96375; 96376; 99285; A9270; C9113; G0378; J0696; J1650; J7030; 96374

== ENCOUNTER 2021-10-19 15:16 | Emergency (ER) | payer OTHER, MEDICARE ==
--- NOTE | 2021-10-19 15:21 | EDM.PDOC ---
ED HPI GENERAL MEDICAL PROBLEM - General Stated Complaint: needs cath Time Seen by Provider: 10/19/21 15:18 Source of Information: Reports: Patient, Family History Limitations: Reports: No Limitations - History of Present Illness INITIAL COMMENTS - FREE TEXT/NARRATIVE: HISTORY AND PHYSICAL: History of present illness: Patient is an 81-year-old male who presents [facility] the emergency [facility] after being unable to inflate the balloon on his Love catheter. Patient offers no current complaints or concerns. The love catheter was placed by the [facility], although due to discomfort by patient they wanted patient seen in the ED. Patient denies any fever, chills, headache, change in vision, syncope or near syncope. Denies any chest pain, back pain, shortness of breath or cough. Denies any abdominal pain, nausea, vomiting, diarrhea, constipation or dysuria. Has not noted any blood in urine or stool. Patient has been eating and drinking appropriately. No recent travel or sick contacts. Review of systems: As per history of present illness and below otherwise all systems reviewed and negative. Past medical history: As per history of present illness and as reviewed below otherwise noncont ributory. Surgical history: As per history of present illness and as reviewed below otherwise noncontributory. Social history: See social history for further information Family history: As per history of present illness and as reviewed below otherwise noncontributory. Physical exam: General: Well developed and well nourished 81 year old male. Alert and orientated x 3. Nontoxic in appearance and in no acute distress. Vital signs are stable and have been reviewed by me. Nursing notes were reviewed. HEENT: Atraumatic, normocephalic, pupils equal and reactive bilaterally, cataracts noted, negative for conjunctival pallor or scleral icterus, mucous membranes moist, trachea midline. No drooling or trismus noted. No meningeal signs. No hot potato voice noted. Lungs: Clear to auscultation bilaterally. Abdomen: Soft and nontender. No flank pain. Genitourinary: Love intact. No redness, swelling or abnormal variants. Skin: Intact, warm, dry. No lesions or rashes noted. Hematologic: No petechiae or purpra. Mucosa appropriate color and normal nail bed color and refill. Extremities: Atraumatic, moves all extremities per self without difficulty or deficits. Neurovascular unremarkable. Neuro: Awake, alert, oriented. Cranial nerves II through XII unremarkable. Cerebellum unremarkable. Motor and sensory unremarkable throughout. Exam nonfocal. Psychiatric: Mood and affect are appropriate. Normal thought process. Answering questions appropriately. Please note that the patient was seen and evaluated during the 2019 SARS-CoV-2 novel coronavirus pandemic period. Community viral transmission is ongoing at time of this encounter and the emergency department is operating under pandemic response procedures. Medical Decision Making: Love is intact, it just needed to advanced a little further and the balloon was easily inflated. Patient has no other complaints or concerns. Reassessment at the time of disposition demonstrates that the patient is in no acute distress. The patient is stable for discharge, counseling was provided and we discussed in great detail signs and symptoms that would prompt them to return to the Emergency Department. Medication, follow up and supportive care measures were reviewed and discussed. Voices understanding and is agreeable to plan of care. Denies any further questions or concerns at this time. Diagnostics: None Therapeutics: Love assistance Prescription: None Impression: Problems with love catheter Plan: 1. You were evaluated today on an emergent basis. [facility] C[facility]ter care per usual. 2. You can alternate Tylenol and ibuprofen as needed for pain and fever management. 3. We encourage you to follow up with your primary care provider for re- evaluation and further care/management as needed. 4. If your symptoms should worsen, new symptoms develop or any of the signs and symptoms we discussed should arise please return to the emergency room or call 911 (if needed). Definitive disposition and diagnosis as appropriate pending reevaluation and review of above. - Related Data Allergies Allergy/AdvReac Type Severity Reaction Status Date / Time No Known Allergies Allergy Verified 10/19/21 15:36 Home Meds: Home Meds Cyclobenzaprine [Flexeril] 10 mg PO BEDTIME 09/22/21 [History] Gabapentin [Neurontin] 300 mg PO TID 09/22/21 [History] Omeprazole 20 mg PO Q24H 09/22/21 [History] atorvaSTATin [Lipitor] 20 mg PO BEDTIME 09/22/21 [History] Alendronate Sodium 70 mg PO WEEKLY 09/25/21 [History] Ascorbic Acid 1,000 mg PO Q24H 09/25/21 [History] Aspirin [Aspirin EC] 81 mg PO Q24H 09/25/21 [History] Fish Oil/[place]-3 Fatty Acids [Fish Oil 1,000 MG] 1 gm PO QAM 09/25/21 [History] Vitamin B Complex 1 cap PO QAM 09/25/21 [History] Cefdinir 300 mg PO TID 5 Days #15 capsule 09/26/21 [Rx] Past Medical History HEENT History: Reports: None, Hard of Hearing, Impaired Vision, Other (See Below) Other HEENT History: wears glasses, hard of hearing bilaterally (wears hearing aides), blind in left eye Cardiovascular History: Reports: High Cholesterol, [place] Respiratory History: Reports: None Gastrointestinal History: Reports: None Genitourinary History: Reports: BPH, UTI, Recurrent Other Genitourinary History: Chronic indwelling catheter. Musculoskeletal History: Reports: Fibromyalgia Neurological History: Reports: CVA, Other (See Below) Other Neuro History: dementia Psychiatric History: Reports: Dementia Endocrine/Metabolic History: Reports: None Hematologic History: Reports: Anemia Immunologic History: Reports: None Oncologic (Cancer) History: Reports: None Dermatologic History: Reports: None - Infectious Disease History Infectious Disease History: Reports: None - Past Surgical History Head Surgeries/Procedures: Reports: None HEENT Surgical History: Reports: Cataract Surgery, Other (See Below) Other HEENT Surgeries/Procedures: left corneal transplant Cardiovascular Surgical History: Reports: None Respiratory Surgical History: Reports: None GI Surgical History: Reports: None Male Surgical History: Reports: None Endocrine Surgical History: Reports: None Neurological Surgical History: Reports: None Musculoskeletal Surgical History: Reports: None Oncologic Surgical History: Reports: None Dermatological Surgical History: Reports: None Social & Family History - Family History Family Medical History: No Pertinent Family History HEENT: Reports: None - Caffeine Use Caffeine Use: Reports: None ED ROS GENERAL - Review of Systems Review Of Systems: Comprehensive ROS is negative, except as noted in HPI. ED EXAM, RENAL/ - Physical Exam Exam: See Below (See dictation) Course - Vital Signs Last Recorded V/S: Last Vital Signs Temp 97.5 F 10/19/21 15:33 Pulse 75 10/19/21 15:33 Resp 16 10/19/21 15:33 BP 96/43 L 10/19/21 15:33 Pulse Ox 95 10/19/21 15:33 - Orders/Labs/Meds Orders: Active Orders 24 hr Category Date Time Status Communication Order [RC] STAT Care 10/19/21 15:32 Active Departure - Departure Time of Disposition: 15:44 Disposition: Home, Self-Care 01 Clinical Impression: Difficult Love catheter placement - Discharge Information Referrals: Mohan Edmonds, [employer] TECHNICIAN [Primary Care Provider] - Additional Instructions: The following information is given to patients seen in the emergency department who are being discharged to home. This information is to outline your options for follow-up care. We provide all patients seen in our emergency department with a follow-up referral. The need for follow-up, as well as the timing and circumstances, are variable depending upon the specifics of your emergency department visit. If you don't have a primary care physician on staff, we will provide you with a referral. We always advise you to contact your personal physician following an emergency department visit to inform them of the circumstance of the visit and for follow-up with them and/or the need for any referrals to a consulting specialist. The emergency department will also refer you to a specialist when appropriate. This referral assures that you have the opportunity for follow-up care with a specialist. All of these measure are taken in an effort to provide you with optimal care, which includes your follow-up. Under all circumstances we always encourage you to contact your private physician who remains a resource for coordinating your care. When calling for follow-up care, please make the office aware that this follow-up is from your recent emergency room visit. If for any reason you are refused follow-up, please contact the [facility] Emergency Department at and asked to speak to the emergency department charge nurse. [facility] [address] [place] [id number] [id number] Thank you for choosing the [facility] emergency department in [place] for your medical needs today. It was a pleasure caring for you. Today you were seen in the emergency department for love catheter assistance. 1. You were evaluated today on an emergent basis. [facility]. Catheter care per usual. 2. You can alternate Tylenol and ibuprofen as needed for pain and fever managem ent. 3. We encourage you to follow up with your primary care provider for re- evaluation and further care/management as needed. 4. If your symptoms should worsen, new symptoms develop or any of the signs and symptoms we discussed should arise please return to the emergency room or call 911 (if needed). Sepsis Event Note (ED) - Focused Exam Vital Signs: Vital Signs Temp Pulse Resp BP Pulse Ox 10/19/21 15:33 97.5 F 75 16 96/43 L 95 - My Orders Last 24 Hours: My Active Orders 10/19/21 15:32 Communication Order [RC] STAT - Assessment/Plan Last 24 Hours: My Active Orders 10/19/21 15:32 Communication Order [RC] STAT
== END 2021-10-19 16:20 | disposition home or self-care (01) ==
LOC: MW.ED 15:16
DX: Z46.6 Encounter for fitting and adjustment of urinary device (principal); E78.00 Pure hypercholesterolemia, unspecified; I25.2 Old myocardial infarction; Z79.899 Other long term (current) drug therapy
CPT/HCPCS: 99283

== ENCOUNTER 2021-11-07 05:51 | Emergency (ER) | payer OTHER, MEDICARE ==
[2021-11-07] MEDS ORDERED: Sodium Chloride 0.9% 1,000 ML IV ONE (06:13)
[2021-11-07 07:05] LABS: BLOOD UREA NITROGEN,BUN 27 mg/dL (7.0-18.0); CARBON DIOXIDE,CO2 26.6 mmol/L (21.0-32.0); CHLORIDE,CL 107 mmol/L (98-107); GLUCOSE RANDOM 118 mg/dL (74-106); SODIUM,NA 141 mmol/L (136-148)
[2021-11-07] MEDS ORDERED: cefTRIAXone 1 GM in Sodium Chloride 0.9% 50 ML IV ONE ×2 (08:44→12:30)
== END 2021-11-07 12:47 ==
LOC: MW.ED 05:51
DX: G40.A09 Absence epileptic syndrome, not intractable, without status epilepticus (principal); N39.0 Urinary tract infection, site not specified; E78.00 Pure hypercholesterolemia, unspecified; I25.2 Old myocardial infarction; Z86.73 Personal history of transient ischemic attack (TIA), and cerebral infarction without residual deficits; Z97.8 Presence of other specified devices; Z20.822 Contact with and (suspected) exposure to COVID-19; Z79.899 Other long term (current) drug therapy; Z79.82 Long term (current) use of aspirin
CPT/HCPCS: 36415; 71045; 80053; 81001; 83605; 83735; 84484; 85025; 87040; 87086; 87635; 93005; 96365; 99285; J0696; J7030; U0002

== ENCOUNTER 2021-12-09 18:35 | Emergency (ER) | payer OTHER, MEDICARE ==
[2021-12-09] MEDS ORDERED: Piperacillin/Tazobactam 4.5 GM in Sodium Chloride 0.9% 100 ML IV ONE (18:45)
[2021-12-09] MEDS ORDERED: Sodium Chloride 0.9% 2,000 ML IV ONE (18:45)
[2021-12-09] MEDS ORDERED: Sodium Chloride 0.9% 10 ML Syringe FLUSH PRN (18:45)
[2021-12-09] MEDS ORDERED: Sodium Chloride 0.9% 2.5 ML Syringe FLUSH PRN (18:45)
[2021-12-09] MEDS ORDERED: propofoL 100 ML ONE ×2 (19:02→21:19)
[2021-12-09 19:26] LABS: BLOOD UREA NITROGEN,BUN 27 mg/dL (7.0-18.0); CARBON DIOXIDE,CO2 13.5 mmol/L (21.0-32.0); CHLORIDE,CL 105 mmol/L (98-107); GLUCOSE RANDOM 326 mg/dL (74-106); LIPASE 59 U/L (73-393); POTASSIUM,K 4.4 mmol/L (3.5-5.1); SODIUM,NA 141 mmol/L (136-148)
[2021-12-09 19:38] LABS: CORONAVIRUS COVID-19 NAA NEGATIVE (NEGATIVE); INFLUENZA A NAA NEGATIVE (NEGATIVE); INFLUENZA B NAA NEGATIVE (NEGATIVE); RESPIRATORY SYNCYTIAL VIR NAA NEGATIVE (NEGATIVE)
[2021-12-09] MEDS ORDERED: VANCOmycin 1.75 GM/350 ML 1.75 GM in Premix Bag 1 BAG IV ONE (20:00)
[2021-12-09] MEDS ORDERED: Sodium Bicarbonate 8.4% 50 MEQ/50 ML Syringe IVPUSH ONE (20:23)
[2021-12-09] MEDS ORDERED: Sodium Bicarbonate 8.4% 50 MEQ/50 ML Syringe ONE (20:58)
[2021-12-09] MEDS ORDERED: Pantoprazole 40 MG in Sodium Chloride 0.9% 10 ML IVPUSH ONE (21:00)
[2021-12-09] MEDS ORDERED: Pantoprazole 40 MG Vial ONE (21:01)
[2021-12-09] MEDS ORDERED: propofoL 100 ML IV SCH (23:00)
== END 2021-12-09 21:16 ==
LOC: MW.ED 18:35
DX: A41.9 Sepsis, unspecified organism (principal); J18.9 Pneumonia, unspecified organism; J96.90 Respiratory failure, unspecified, unspecified whether with hypoxia or hypercapnia; R11.10 Vomiting, unspecified; Z20.822 Contact with and (suspected) exposure to COVID-19; Z79.82 Long term (current) use of aspirin; Z79.899 Other long term (current) drug therapy
CPT/HCPCS: 0241U; 36415; 36600; 43752; 70450; 71045; 74018; 80053; 80305; 80307; 82803; 83605; 83690; 83880; 84484; 85025; 85610; 86850; 86900; 86901; 87040; 96365; 96368; 96375; 99285; C9113; J2543; J2704; J3370; J7030; 31500; 99291